=== PATIENT | male | born 1945 | race Caucasian/White ===

== ENCOUNTER 2018-09-26 08:34 | Observation (INO) | payer MEDICARE, OTHER ==
[2018-09-26] MEDS ORDERED: DUONEB 0.5-3 MG/3 ml Neb IH ONE ×2 (09:15→09:38)
[2018-09-26 09:24] LABS: VBG BASE EXCESS 1.7 (-2.0-2.0); VBG CARBOXYHEMOGLOBIN 2.3 % T HGB (0.0-6.9); VBG HCO3- 26.6 meq/L (22-28); VBG HEMOGLOBIN 10.8; VBG O2 SATURATION 56.8 (95-100); VBG POTASSIUM 3.9 (3.5-5.1); VBG pH 7.41 (7.32-7.42)
--- NOTE | 2018-09-26 09:24 | ERPHSYRPT ---
- History of Present Illness Time Seen by Provider: 09/26/18 08:50 Source: patient Exam Limitations: clinical condition Patient Subjective Stated Complaint: pt here for increase weakness for a few days now, with off and on vomiting. he denies any pain, spouse states he is slightly confused off and on Triage Nursing Assessment: pt alert, arrived per ambulance, resp easy, skin w/d/ p. has port to right side of chest and drain to left side of chest. abd soft, Physician History: PATIENT WITH A HISTORY OF PULMONARY CARCINOMA X 2 YEARS, POST CHEMOTHERAPY, AND CHEMOTHERAPY, HAD EPISODES OF EMESIS X 2 DAYS. COMPLAINS OF A PRODUCTIVE COUGH CLEAR SPUTUM. DENIES FEVER, CHILLS, DIFFICULTY BREATHING OR CHEST PAIN. Timing/Duration: day(s) Severity: moderate Associated Symptoms: cough, weakness Allergies/Adverse Reactions: No Known Drug Allergies Allergy (Verified 09/26/18 08:42) Home Medications: Allopurinol 100 mg [Zyloprim 100 mg] 100 mg PO DAILY 04/16/15 [History] Metformin HCl 500 mg [Glucophage 500 MG] 500 mg PO DAILY 04/16/15 [History ] Metoprolol Tartrate 50 mg [Lopressor 50 MG] 50 mg PO BID 04/16/15 [History ] Nitroglycerin 0.4 mg/Hr [Nitro-Dur 0.4 MG/HR] 1 patch TOP DAILY 04/16/15 [ History] Perdido-3 Fatty Acids/Fish Oil [Fish Oil 1,000 mg Softgel] 1 tab PO BID 04/16/15 [ History] Ramipril 5 mg [Altace 5 MG] 10 mg PO DAILY 04/16/15 [History] Metoprolol Tartrate 50 mg [Lopressor 50 MG] 09/26/18 [History] Hx Tetanus, Diphtheria Vaccination/Date Given: No Hx Influenza Vaccination/Date Given: Yes (Dec 2014) Hx Pneumococcal Vaccination/Date Given: Yes (approximately 2 years) Immunizations Up to Date: Yes - Review of Systems Constitutional: Weakness, No Fever, No Chills Eyes: No Symptoms Ears, Nose, & Throat: No Symptoms Respiratory: Cough, No Dyspnea Cardiac: No Symptoms, No Chest Pain, No Edema, No Syncope Abdominal/Gastrointestinal: No Symptoms, No Abdominal Pain, No Nausea, No Vomiting, No Diarrhea Genitourinary Symptoms: No Symptoms, No Dysuria Musculoskeletal: No Symptoms, No Back Pain, No Neck Pain Skin: Skin Lesions, No Rash Neurological: No Dizziness, No Focal Weakness, No Sensory Changes Psychological: No Symptoms Endocrine: No Symptoms All Other Systems: Reviewed and Negative - Past Medical History Pertinent Past Medical History: Yes Neurological History: No Pertinent History ENT History: No Pertinent History Cardiac History: Coronary Artery Disease, Myocardial Infarction (CT) Respiratory History: Lung Cancer Endocrine Medical History: Diabetes Type II Musculoskeletal History: No Pertinent History GI Medical History: Polyps History: No Pertinent History Psycho-Social History: No Pertinent History Male Reproductive Disorders: No Pertinent History Other Medical History: pt is "prediabetic" for the past 3 months taking metformin. stopped chemo and radiation in 2018 and takes oral meds - Past Surgical History Past Surgical History: Yes Neuro Surgical History: No Pertinent History Cardiac: Cardiac Catheterization, Cardiac Stent Respiratory: No Pertinent History Gastrointestinal: Other Genitourinary: No Pertinent History Musculoskeletal: No Pertinent History Male Surgical History: Vasectomy Other Surgical History: colonoscopies - Social History Smoking Status: Former smoker How long have you smoked: 30 years Exposure to second hand smoke: No Drug Use: none Patient Lives Alone: No - Nursing Vital Signs Nursing Vital Signs: Initial Vital Signs Temperature 98.8 F 09/26/18 08:35 Pulse Rate 93 H 09/26/18 08:35 Respiratory Rate 18 09/26/18 08:35 Blood Pressure 123/79 09/26/18 08:35 O2 Sat by Pulse Oximetry 95 09/26/18 08:35 Pain Scale Pain Intensity 0 - Physical Exam General Appearance: no apparent distress, alert Eye Exam: PERRL/EOMI, eyes nml inspection Ears, Nose, Throat Exam: normal ENT inspection, TMs normal, pharynx normal, moist mucous membranes Neck Exam: normal inspection, non-tender, supple, full range of motion Respiratory Exam: normal breath sounds, lungs clear, No respiratory distress Cardiovascular Exam: regular rate/rhythm, normal heart sounds, normal peripheral pulses Gastrointestinal/Abdomen Exam: soft, normal bowel sounds, No tenderness, No mass Back Exam: normal inspection, normal range of motion, No CVA tenderness, No vertebral tenderness Extremity Exam: normal inspection, normal range of motion, pelvis stable Neurologic Exam: alert, oriented x 3, cooperative, normal mood/affect, nml cerebellar function, nml station & gait, sensation nml, No motor deficits Skin Exam: normal color, warm, dry, No rash Lymphatic Exam: No adenopathy SpO2 Interpretation: normal SpO2: 95 - Course EKG Interpreted by Me: RATE, Sinus Rhythm, Sinus Tach, NORMAL AXIS (RATE 97) - Radiology Exams Chest X-ray Interpretation: Interpreted by me (LEFT PERIHILAR MASS, INFRAHILAR INFILTRATE) Ordered Tests: Active Orders 24 hr Category Date Time Status Drilling Foreman STAT Care 09/26/18 09:16 Active EKG-ER Only STAT Care 09/26/18 09:15 Active Oxygen-ED Only Nasal Cannula 2 lpm Care 09/26/18 09:15 Active CHEST 1 VIEW (PORTABLE) Stat Exams 09/26/18 09:16 Taken BLOOD CULTURE Stat Lab 09/26/18 09:30 Received CBC W DIFF Stat Lab 09/26/18 09:15 Completed CMP Stat Lab 09/26/18 09:20 Completed Lactic Acid Stat Lab 09/26/18 09:15 Completed NT PRO BNP Stat Lab 09/26/18 09:17 Completed PROTIME WITH INR Stat Lab 09/26/18 09:20 Completed TROPONIN Q3H Lab 09/26/18 09:20 Completed TROPONIN Q3H Lab 09/26/18 12:30 Ordered TROPONIN Q3H Lab 09/26/18 15:30 Ordered TROPONIN Q3H Lab 09/26/18 18:30 Ordered TROPONIN Q3H Lab 09/26/18 21:30 Ordered UA W/RFX UR CULTURE Stat Lab 09/26/18 09:16 Uncollected VENOUS BLOOD GAS Stat Lab 09/26/18 09:17 Completed Peak Expiratory Flow Rate ONCE RT 09/26/18 09:15 Completed Respiratory Therapy Assessment DAILY RT 09/26/18 09:39 Completed Medication Summary Generic Name Dose Route Start Last Admin Trade Name Freq PRN Reason Stop Dose Admin Sodium Chloride 1,000 mls @ 100 mls/hr 09/26/18 09:15 09/26/18 09:42 Sodium Chloride 0.9% 1000 Ml IV 10/26/18 09:14 100 mls/hr .Q10H RONALD Administration Ceftriaxone Sodium/Dextrose 1 g in 50 mls @ 100 mls/hr 09/26/18 09:59 Rocephin 1 Gm-D5w 50 Ml Bag IV 09/26/18 10:28 STAT STA Discontinued Medications Generic Name Dose Route Start Last Admin Trade Name Lorin PRN Reason Stop Dose Admin Albuterol/Ipratropium 3 ml 09/26/18 09:15 09/26/18 09:42 Duoneb 0.5-3 Mg/3 Ml Neb IH 09/26/18 09:16 3 ml STAT ONE Administration Albuterol/Ipratropium Confirm 09/26/18 09:38 Duoneb 0.5-3 Mg/3 Ml Neb Administered 09/26/18 09:39 Dose 3 ml IH .STK-MED ONE Ceftriaxone Sodium/Dextrose Confirm 09/26/18 10:18 Rocephin 1 Gm-D5w 50 Ml Bag Administered 09/26/18 10:19 Dose 1 g in 50 mls @ ud IV .STK-MED ONE Lab/Rad Data: Laboratory Result Diagrams 09/26/18 09:15 09/26/18 09:20 Laboratory Results 09/26/18 09/26/18 09/26/18 Range/Units 09:32 09:20 09:20 WBC (4.0-10.5) K/mm3 RBC (4.1-5.6) M/mm3 Hgb (12.5-18.0) gm/dl Hct (42-50) % MCV (78-100) fl MCH (26-32) pg MCHC (32-36) g/dl RDW (11.5-14.0) % Plt Count (150-450) K/mm3 MPV (6-9.5) fl Gran % (36.0-66.0) % Eos # (Auto) (0-0.5) Absolute Lymphs (auto) (1.0-4.6) Absolute Monos (auto) (0.0-1.3) Lymphocytes % (24.0-44.0) % Monocytes % (0.0-12.0) % Eosinophils % (0.00-5.0) % Basophils % (0.0-0.4) % Absolute Granulocytes (1.4-6.9) Basophils # (0-0.4) PT 13.7 H (8.83-12.87) SECONDS INR 1.21 (0.8-3.0) pO2/FiO2 Ratio % VBG pH (7.32-7.42) VBG pCO2 at Pat Temp (42-55) mm/Hg VBG pO2 at Pat Temp (25-40) mm/Hg VBG HCO3 (22-28) meq/L VBG O2 Sat (Farzad) (95-100) VBG Base Excess (-2.0-2.0) VBG Hemoglobin VBG Carboxyhemoglobin (0.0-6.9) % T HGB POC Potassium (3.5-5.1) Sodium (137-145) mmol/L Potassium (3.5-5.1) mmol/L Chloride (98-107) mmol/L Carbon Dioxide (22-30) mmol/L Anion Gap (5-15) MEQ/L BUN (9-20) mg/dL Creatinine (0.66-1.25) mg/dL Estimated GFR ML/MIN Glucose (74-106) mg/dL Lactic Acid (0.4-2.0) Calcium (8.4-10.2) mg/dL Total Bilirubin (0.2-1.3) mg/dL AST (17-59) U/L ALT (0-50) U/L Alkaline Phosphatase (38-126) U/L Troponin I < 0.012 (0.000-0.034) ng/mL NT-Pro-B Natriuret Pep (0-900) pg/mL Serum Total Protein (6.3-8.2) g/dL Albumin (3.5-5.0) g/dL Influenza Type A Ag NEGATIVE (NEGATIVE) Influenza Type B Ag NEGATIVE (NEGATIVE) RSV (PCR) NEGATIVE (Negative) 09/26/18 09/26/18 09/26/18 Range/Units 09:20 09:17 09:17 WBC (4.0-10.5) K/mm3 RBC (4.1-5.6) M/mm3 Hgb (12.5-18.0) gm/dl Hct (42-50) % MCV (78-100) fl MCH (26-32) pg MCHC (32-36) g/dl RDW (11.5-14.0) % Plt Count (150-450) K/mm3 MPV (6-9.5) fl Gran % (36.0-66.0) % Eos # (Auto) (0-0.5) Absolute Lymphs (auto) (1.0-4.6) Absolute Monos (auto) (0.0-1.3) Lymphocytes % (24.0-44.0) % Monocytes % (0.0-12.0) % Eosinophils % (0.00-5.0) % Basophils % (0.0-0.4) % Absolute Granulocytes (1.4-6.9) Basophils # (0-0.4) PT (8.83-12.87) SECONDS INR (0.8-3.0) pO2/FiO2 Ratio 21.0 % VBG pH 7.41 (7.32-7.42) VBG pCO2 at Pat Temp 42 (42-55) mm/Hg VBG pO2 at Pat Temp 30 (25-40) mm/Hg VBG HCO3 26.6 (22-28) meq/L VBG O2 Sat (Farzad) 56.8 L (95-100) VBG Base Excess 1.7 (-2.0-2.0) VBG Hemoglobin 10.8 VBG Carboxyhemoglobin 2.3 (0.0-6.9) % T HGB POC Potassium 3.9 (3.5-5.1) Sodium 134 L (137-145) mmol/L Potassium 4.0 (3.5-5.1) mmol/L Chloride 95 L (98-107) mmol/L Carbon Dioxide 24 (22-30) mmol/L Anion Gap 19.4 H (5-15) MEQ/L BUN 8 L (9-20) mg/dL Creatinine 0.50 L (0.66-1.25) mg/dL Estimated GFR > 60.0 ML/MIN Glucose 84 (74-106) mg/dL Lactic Acid (0.4-2.0) Calcium 8.9 (8.4-10.2) mg/dL Total Bilirubin 0.90 (0.2-1.3) mg/dL AST 27 (17-59) U/L ALT 7 (0-50) U/L Alkaline Phosphatase 60 (38-126) U/L Troponin I (0.000-0.034) ng/mL NT-Pro-B Natriuret Pep 961 H (0-900) pg/mL Serum Total Protein 7.2 (6.3-8.2) g/dL Albumin 3.7 (3.5-5.0) g/dL Influenza Type A Ag (NEGATIVE) Influenza Type B Ag (NEGATIVE) RSV (PCR) (Negative) 09/26/18 09/26/18 Range/Units 09:15 09:15 WBC 10.0 (4.0-10.5) K/mm3 RBC 3.87 L (4.1-5.6) M/mm3 Hgb 10.4 L (12.5-18.0) gm/dl Hct 31.6 L (42-50) % MCV 81.7 (78-100) fl MCH 26.8 (26-32) pg MCHC 32.9 (32-36) g/dl RDW 15.7 H (11.5-14.0) % Plt Count 166 (150-450) K/mm3 MPV 7.6 (6-9.5) fl Gran % 79.1 H (36.0-66.0) % Eos # (Auto) 0.13 (0-0.5) Absolute Lymphs (auto) 1.06 (1.0-4.6) Absolute Monos (auto) 0.89 (0.0-1.3) Lymphocytes % 10.6 L (24.0-44.0) % Monocytes % 8.9 (0.0-12.0) % Eosinophils % 1.3 (0.00-5.0) % Basophils % 0.1 (0.0-0.4) % Absolute Granulocytes 7.93 H (1.4-6.9) Basophils # 0.01 (0-0.4) PT (8.83-12.87) SECONDS INR (0.8-3.0) pO2/FiO2 Ratio % VBG pH (7.32-7.42) VBG pCO2 at Pat Temp (42-55) mm/Hg VBG pO2 at Pat Temp (25-40) mm/Hg VBG HCO3 (22-28) meq/L VBG O2 Sat (Farzad) (95-100) VBG Base Excess (-2.0-2.0) VBG Hemoglobin VBG Carboxyhemoglobin (0.0-6.9) % T HGB POC Potassium (3.5-5.1) Sodium (137-145) mmol/L Potassium (3.5-5.1) mmol/L Chloride (98-107) mmol/L Carbon Dioxide (22-30) mmol/L Anion Gap (5-15) MEQ/L BUN (9-20) mg/dL Creatinine (0.66-1.25) mg/dL Estimated GFR ML/MIN Glucose (74-106) mg/dL Lactic Acid 0.8 (0.4-2.0) Calcium (8.4-10.2) mg/dL Total Bilirubin (0.2-1.3) mg/dL AST (17-59) U/L ALT (0-50) U/L Alkaline Phosphatase (38-126) U/L Troponin I (0.000-0.034) ng/mL NT-Pro-B Natriuret Pep (0-900) pg/mL Serum Total Protein (6.3-8.2) g/dL Albumin (3.5-5.0) g/dL Influenza Type A Ag (NEGATIVE) Influenza Type B Ag (NEGATIVE) RSV (PCR) (Negative) - Progress Progress Note: 09/26/18 10:26 AFTER 2 SETS OF BLOOD CULTURES, IV ROCEPHIN 1GM, DUO NEB AEROSOL [place] Discussed with : Leon (DISCUSSED WITH DR MANSFIELD AT 1030 FOR OBSERVATION) - Departure Departure Disposition: Observation Clinical Impression: GENERALIZED WEAKNESS, PULMONARY CARCINOMA, DEHYDRATION Condition: Stable Critical Care Time: No Referrals: NORBERTO SHERMAN MD [Primary Care Provider] -
[2018-09-26] MEDS ORDERED: Sodium Chloride 0.9% 1000 ML 1,000 ML ONE (09:32)
[2018-09-26 09:33] LABS: BASOPHIL % 0.1 % (0.0-0.4); Basophil (Absolute #) 0.01 (0-0.4); Eosinophil % 1.3 % (0.00-5.0); Eosinophil (Absolute #) 0.13 (0-0.5); Granulocyte Absolute (ANC) 7.93 (1.4-6.9); Granulocytes % 79.1 % (36.0-66.0); Hematocrit 31.6 % (42-50); Hemoglobin 10.4 gm/dl (12.5-18.0); Lymphocyte (Absolute #) 1.06 (1.0-4.6); Lymphocytes % 10.6 % (24.0-44.0); Mean Cell Volume 81.7 fl (78-100); Mean Corpuscular Hemoglobin 26.8 pg (26-32); Mean Corpuscular Hgb Concent. 32.9 g/dl (32-36); Mean Platelet Volume 7.6 fl (6-9.5); Monocyte (Absolute #) 0.89 (0.0-1.3); Monocytes % 8.9 % (0.0-12.0); Platelet Count 166 K/mm3 (150-450); Red Blood Count 3.87 M/mm3 (4.1-5.6); Red Cell Distribution Width 15.7 % (11.5-14.0)
[2018-09-26 09:39] LABS: INR 1.21 (0.8-3.0); PROTIME 13.7 SECONDS (8.83-12.87)
[2018-09-26] MEDS: Sodium Chloride 0.9% 1000 ML 1,000 ML IV SCH ×2 (09:42→20:25)
[2018-09-26 09:44] LABS: ALBUMIN 3.7 g/dL (3.5-5.0); ALKALINE PHOSPHATASE 60 U/L (38-126); ANION GAP 19.4 MEQ/L (5-15); BLOOD UREA NITROGEN 8 mg/dL (9-20); CHLORIDE 95 mmol/L (98-107); Calcium 8.9 mg/dL (8.4-10.2); Carbon Dioxide 24 mmol/L (22-30); Glucose 84 mg/dL (74-106); SGOT/AST 27 U/L (17-59); SGPT/ALT 7 U/L (0-50); SODIUM 134 mmol/L (137-145); Total Protein 7.2 g/dL (6.3-8.2)
[2018-09-26] MEDS ORDERED: ROCEPHIN 1 Gm-D5w 50 ml Bag** 1 G/50 ML IVPB IV STA (09:59)
[2018-09-26 10:09] LABS: INFLUENZA A NEGATIVE (NEGATIVE); INFLUENZA B NEGATIVE (NEGATIVE); RESPIRATORY SYNCTIAL VIRUS NEGATIVE (Negative)
[2018-09-26] MEDS ORDERED: ROCEPHIN 1 Gm-D5w 50 ml Bag** 1 G/50 ML IVPB IV ONE (10:18)
[2018-09-26] MEDS ORDERED: Zofran 4 MG/2 ML VIAL IV PRN (10:37)
[2018-09-26] MEDS ORDERED: DUONEB 0.5-3 MG/3 ml Neb IH PRN (10:37)
[2018-09-26] MEDS ORDERED: TYLENOL 325 MG PO PRN (10:37)
[2018-09-26] MEDS ORDERED: Sodium Chloride 0.9% 1000 ML 1,000 ML IV SCH (10:45)
[2018-09-26] MEDS ORDERED: Zithromax 500 MG/ 250 ML NaCl Premix 500 MG/250 ML IVPB IV SCH (12:00)
[2018-09-26 13:44] LABS: Appearance CLEAR (CLEAR); Bilirubin NEGATIVE (NEGATIVE); Blood NEGATIVE Ery/ul (0-5); Glucose NEGATIVE (NEGATIVE); Ketones MODERATE (NEGATIVE); Leukocyte Esterase NEGATIVE (NEGATIVE); Mucus SLIGHT /HPF (NEGATIVE); Nitrite NEGATIVE (NEGATIVE); Protein,Urine Dip NEGATIVE (Negative); Urobilinogen NEGATIVE mg/dL (0-1)
[2018-09-26] MEDS ORDERED: ZOFRAN ODT 4 MG PO PRN (14:00)
[2018-09-26] MEDS: Flomax 0.4 MG PO SCH (15:24)
--- NOTE | 2018-09-26 18:22 | PCM.HP ---
History of Present Illness - Chief Complaint Chief Complaint: Generalized Weakness, Pneumonia, Dehydration History of Present Illness: is a 73 year old male pt with no PCP, hx CAD, HTN, DM, and gout with current lung cancer being treated with chemotherapy who was admitted through the ER for Pneumonia, CP, weakness and dehydration. History is from his ; pt has been disoriented and weak x 2d with decreased urination. Can no longer get out of bed. Has a walker at home and prior to this was walking by himself. Pt has had some vomiting after eating, no diarrhea; last ate yesterday at noon. CXR showed L hilar mass, possibly due to infection (final read pending). He sees Dr. Lim and Dr. Araiza (?) for the cancer. Has been on opdivo for 2.5 years but took a break from that at the end of July - is supposed to resume on Oct 28. says the scans show no sign of the cancer but he has been generally weak and failing recently. notes he's been in the ER at [facility] [place] 3x in the past 3 wks - once for bronchitis, once for a fx vertebra, once for dehydration. - Review of Systems Constitutional: Fatigue, Weakness, Weight Loss Respiratory: Short Of Breath, Other (has pleurodrain x 18 mo in L chest) Abdominal/Gastrointestinal: Appetite Changes Neurological: Other (disorientation) All Other Systems: Reviewed and Negative (per ) Medications & Allergies Home Medications: Home Medication List Allopurinol 100 mg [Zyloprim 100 mg] 100 mg PO HS 04/16/15 [History Confirmed 09/26/18] Metformin HCl 500 mg [Glucophage 500 MG] 500 mg PO BID 04/16/15 [History Confirmed 09/26/18] Nitroglycerin 0.4 mg/Hr [Nitro-Dur 0.4 MG/HR] 1 patch TOP HS 04/16/15 [ History Confirmed 09/26/18] Ramipril 5 mg [Altace 5 MG] 10 mg PO HS 04/16/15 [History Confirmed ] Metoprolol Tartrate 50 mg [Lopressor 50 MG] 50 mg PO BID 09/26/18 [ History Confirmed 09/26/18] Ondansetron ODT 4 MG [Zofran Odt 4 mg] 1 tab SL Q6H 09/26/18 [History Confirmed 09/26/18] Sertraline HCl 50 mg [Zoloft 50 mg Tablet] 50 mg PO HS 09/26/18 [History Confirmed 09/26/18] Tamsulosin HCl 0.4 mg PO DAILY 09/26/18 [History Confirmed 09/26/18] Allergies/Adverse Reactions: Allergies Allergy/AdvReac Type Severity Reaction Status Date / Time No Known Drug Allergies Allergy Verified 09/26/18 08:42 - Past Medical History Past Medical History: Yes Neurological History: No Pertinent History ENT History: No Pertinent History Cardiac History: Coronary Artery Disease, Myocardial Infarction ([place]) Respiratory History: Lung Cancer Endocrine Medical History: Diabetes Type II Musculoskelatal History: No Pertinent History GI Medical History: Polyps History: No Pertinent History Pyscho-Social History: No Pertinent History Male Reproductive Disorders: No Pertinent History Comment: TAKES METFORMIN - Past Surgical History Past Surgical History: Yes Neuro Surgical History: No Pertinent History Cardiac History: Cardiac Catheterization, Cardiac Stent Respiratory Surgery: No Pertinent History GI Surgical History: Other Genitourinary Surgical Hx: No Pertinent History Musculskeletal Surgical Hx: No Pertinent History Male Surgical History: Vasectomy Other Surgical History: pt currently has lung cancer and is receiving immunotherapy for that. PARATHYROID SURGERY "YEARS AGO" - Social History Smoking Status: Former smoker How long have you smoked: 30 years Exposure to second hand smoke: No Alcohol: None Drug Use: none - Physical Exam Vital Signs: Vital Signs - 24 hr Temp Pulse Resp BP Pulse Ox 09/26/18 16:00 98.9 F 94 H 18 119/89 94 L 09/26/18 13:18 94 H 18 95 09/26/18 12:24 98.7 F 98 H 18 136/66 94 L 09/26/18 11:11 98.7 F 98 H 18 136/66 94 L 09/26/18 10:34 95 09/26/18 10:13 72 14 126/86 98 09/26/18 09:48 91 H 16 95 09/26/18 09:30 88 16 116/76 98 09/26/18 08:35 98.8 F 93 H 18 123/79 95 General Appearance: no apparent distress, alert Neurologic Exam: cooperative, other (answers some questions with comments that don't make sense; however simply doesn't answer most questions, his does) Eye Exam: eyes nml inspection Ears, Nose, Throat Exam: moist mucous membranes Neck Exam: normal inspection, non-tender, No lymphadenopathy Respiratory Exam: diminished breath sounds, prolonged expirations, rhonchi ( throughout), No crackles/rales, No wheezing Cardiovascular Exam: regular rate/rhythm, normal heart sounds, No murmur Extremity Exam: normal inspection, No pedal edema, No swelling Skin Exam: normal color, warm, dry, No rash Results - Labs Lab/Micro Results: Accuchecks Date 09/26/18 Time 16:30 Accucheck Value: 104 Lab Results-Last 24 Hours 09/26/18 09/26/18 09/26/18 Range/Units 09:15 09:15 09:17 WBC 10.0 (4.0-10.5) K/mm3 RBC 3.87 L (4.1-5.6) M/mm3 Hgb 10.4 L (12.5-18.0) gm/dl Hct 31.6 L (42-50) % MCV 81.7 (78-100) fl MCH 26.8 (26-32) pg MCHC 32.9 (32-36) g/dl RDW 15.7 H (11.5-14.0) % Plt Count 166 (150-450) K/mm3 MPV 7.6 (6-9.5) fl Gran % 79.1 H (36.0-66.0) % Eos # (Auto) 0.13 (0-0.5) Absolute Lymphs (auto) 1.06 (1.0-4.6) Absolute Monos (auto) 0.89 (0.0-1.3) Lymphocytes % 10.6 L (24.0-44.0) % Monocytes % 8.9 (0.0-12.0) % Eosinophils % 1.3 (0.00-5.0) % Basophils % 0.1 (0.0-0.4) % Absolute Granulocytes 7.93 H (1.4-6.9) Basophils # 0.01 (0-0.4) PT (8.83-12.87) SECONDS INR (0.8-3.0) pO2/FiO2 Ratio 21.0 % VBG pH 7.41 (7.32-7.42) VBG pCO2 at Pat Temp 42 (42-55) mm/Hg VBG pO2 at Pat Temp 30 (25-40) mm/Hg VBG HCO3 26.6 (22-28) meq/L VBG O2 Sat (Farzad) 56.8 L (95-100) VBG Base Excess 1.7 (-2.0-2.0) VBG Hemoglobin 10.8 VBG Carboxyhemoglobin 2.3 (0.0-6.9) % T HGB POC Potassium 3.9 (3.5-5.1) Sodium (137-145) mmol/L Potassium (3.5-5.1) mmol/L Chloride (98-107) mmol/L Carbon Dioxide (22-30) mmol/L Anion Gap (5-15) MEQ/L BUN (9-20) mg/dL Creatinine (0.66-1.25) mg/dL Estimated GFR ML/MIN Glucose (74-106) mg/dL Hemoglobin A1c (4.5-6.0) % Lactic Acid 0.8 (0.4-2.0) Calcium (8.4-10.2) mg/dL Total Bilirubin (0.2-1.3) mg/dL AST (17-59) U/L ALT (0-50) U/L Alkaline Phosphatase (38-126) U/L Troponin I (0.000-0.034) ng/mL NT-Pro-B Natriuret Pep (0-900) pg/mL Serum Total Protein (6.3-8.2) g/dL Albumin (3.5-5.0) g/dL Urine Color (YELLOW) Urine Appearance (CLEAR) Urine pH (5-6) Ur Specific [place] (1.005-1.025) Urine Protein (Negative) Urine Ketones (NEGATIVE) Urine Blood (0-5) Marcelo/ul Urine Nitrite (NEGATIVE) Urine Bilirubin (NEGATIVE) Urine Urobilinogen (0-1) mg/dL Ur Leukocyte Esterase (NEGATIVE) Urine WBC (Auto) (0-5) /HPF Urine RBC (Auto) (0-2) /HPF U Epithel Cells (Auto) (FEW) /HPF Urine Bacteria (Auto) (NEGATIVE) /HPF Urine Mucus (Auto) (NEGATIVE) /HPF Urine Culture Reflexed (NO) Urine Glucose (NEGATIVE) mg/dL Influenza Type A Ag (NEGATIVE) Influenza Type B Ag (NEGATIVE) RSV (PCR) (Negative) 09/26/18 09/26/18 09/26/18 Range/Units 09:17 09:20 09:20 WBC (4.0-10.5) K/mm3 RBC (4.1-5.6) M/mm3 Hgb (12.5-18.0) gm/dl Hct (42-50) % MCV (78-100) fl MCH (26-32) pg MCHC (32-36) g/dl RDW (11.5-14.0) % Plt Count (150-450) K/mm3 MPV (6-9.5) fl Gran % (36.0-66.0) % Eos # (Auto) (0-0.5) Absolute Lymphs (auto) (1.0-4.6) Absolute Monos (auto) (0.0-1.3) Lymphocytes % (24.0-44.0) % Monocytes % (0.0-12.0) % Eosinophils % (0.00-5.0) % Basophils % (0.0-0.4) % Absolute Granulocytes (1.4-6.9) Basophils # (0-0.4) PT 13.7 H (8.83-12.87) SECONDS INR 1.21 (0.8-3.0) pO2/FiO2 Ratio % VBG pH (7.32-7.42) VBG pCO2 at Pat Temp (42-55) mm/Hg VBG pO2 at Pat Temp (25-40) mm/Hg VBG HCO3 (22-28) meq/L VBG O2 Sat (Farzad) (95-100) VBG Base Excess (-2.0-2.0) VBG Hemoglobin VBG Carboxyhemoglobin (0.0-6.9) % T HGB POC Potassium (3.5-5.1) Sodium 134 L (137-145) mmol/L Potassium 4.0 (3.5-5.1) mmol/L Chloride 95 L (98-107) mmol/L Carbon Dioxide 24 (22-30) mmol/L Anion Gap 19.4 H (5-15) MEQ/L BUN 8 L (9-20) mg/dL Creatinine 0.50 L (0.66-1.25) mg/dL Estimated GFR > 60.0 ML/MIN Glucose 84 (74-106) mg/dL Hemoglobin A1c (4.5-6.0) % Lactic Acid (0.4-2.0) Calcium 8.9 (8.4-10.2) mg/dL Total Bilirubin 0.90 (0.2-1.3) mg/dL AST 27 (17-59) U/L ALT 7 (0-50) U/L Alkaline Phosphatase 60 (38-126) U/L Troponin I (0.000-0.034) ng/mL NT-Pro-B Natriuret Pep 961 H (0-900) pg/mL Serum Total Protein 7.2 (6.3-8.2) g/dL Albumin 3.7 (3.5-5.0) g/dL Urine Color (YELLOW) Urine Appearance (CLEAR) Urine pH (5-6) Ur Specific [place] (1.005-1.025) Urine Protein (Negative) Urine Ketones (NEGATIVE) Urine Blood (0-5) Marcelo/ul Urine Nitrite (NEGATIVE) Urine Bilirubin (NEGATIVE) Urine Urobilinogen (0-1) mg/dL Ur Leukocyte Esterase (NEGATIVE) Urine WBC (Auto) (0-5) /HPF Urine RBC (Auto) (0-2) /HPF U Epithel Cells (Auto) (FEW) /HPF Urine Bacteria (Auto) (NEGATIVE) /HPF Urine Mucus (Auto) (NEGATIVE) /HPF Urine Culture Reflexed (NO) Urine Glucose (NEGATIVE) mg/dL Influenza Type A Ag (NEGATIVE) Influenza Type B Ag (NEGATIVE) RSV (PCR) (Negative) 09/26/18 09/26/18 09/26/18 Range/Units 09:20 09:32 10:00 WBC (4.0-10.5) K/mm3 RBC (4.1-5.6) M/mm3 Hgb (12.5-18.0) gm/dl Hct (42-50) % MCV (78-100) fl MCH (26-32) pg MCHC (32-36) g/dl RDW (11.5-14.0) % Plt Count (150-450) K/mm3 MPV (6-9.5) fl Gran % (36.0-66.0) % Eos # (Auto) (0-0.5) Absolute Lymphs (auto) (1.0-4.6) Absolute Monos (auto) (0.0-1.3) Lymphocytes % (24.0-44.0) % Monocytes % (0.0-12.0) % Eosinophils % (0.00-5.0) % Basophils % (0.0-0.4) % Absolute Granulocytes (1.4-6.9) Basophils # (0-0.4) PT (8.83-12.87) SECONDS INR (0.8-3.0) pO2/FiO2 Ratio % VBG pH (7.32-7.42) VBG pCO2 at Pat Temp (42-55) mm/Hg VBG pO2 at Pat Temp (25-40) mm/Hg VBG HCO3 (22-28) meq/L VBG O2 Sat (Farzad) (95-100) VBG Base Excess (-2.0-2.0) VBG Hemoglobin VBG Carboxyhemoglobin (0.0-6.9) % T HGB POC Potassium (3.5-5.1) Sodium (137-145) mmol/L Potassium (3.5-5.1) mmol/L Chloride (98-107) mmol/L Carbon Dioxide (22-30) mmol/L Anion Gap (5-15) MEQ/L BUN (9-20) mg/dL Creatinine (0.66-1.25) mg/dL Estimated GFR ML/MIN Glucose (74-106) mg/dL Hemoglobin A1c 5.41 (4.5-6.0) % Lactic Acid (0.4-2.0) Calcium (8.4-10.2) mg/dL Total Bilirubin (0.2-1.3) mg/dL AST (17-59) U/L ALT (0-50) U/L Alkaline Phosphatase (38-126) U/L Troponin I < 0.012 (0.000-0.034) ng/mL NT-Pro-B Natriuret Pep (0-900) pg/mL Serum Total Protein (6.3-8.2) g/dL Albumin (3.5-5.0) g/dL Urine Color (YELLOW) Urine Appearance (CLEAR) Urine pH (5-6) Ur Specific [place] (1.005-1.025) Urine Protein (Negative) Urine Ketones (NEGATIVE) Urine Blood (0-5) Marcelo/ul Urine Nitrite (NEGATIVE) Urine Bilirubin (NEGATIVE) Urine Urobilinogen (0-1) mg/dL Ur Leukocyte Esterase (NEGATIVE) Urine WBC (Auto) (0-5) /HPF Urine RBC (Auto) (0-2) /HPF U Epithel Cells (Auto) (FEW) /HPF Urine Bacteria (Auto) (NEGATIVE) /HPF Urine Mucus (Auto) (NEGATIVE) /HPF Urine Culture Reflexed (NO) Urine Glucose (NEGATIVE) mg/dL Influenza Type A Ag NEGATIVE (NEGATIVE) Influenza Type B Ag NEGATIVE (NEGATIVE) RSV (PCR) NEGATIVE (Negative) 09/26/18 09/26/18 09/26/18 Range/Units 12:15 13:32 15:23 WBC (4.0-10.5) K/mm3 RBC (4.1-5.6) M/mm3 Hgb (12.5-18.0) gm/dl Hct (42-50) % MCV (78-100) fl MCH (26-32) pg MCHC (32-36) g/dl RDW (11.5-14.0) % Plt Count (150-450) K/mm3 MPV (6-9.5) fl Gran % (36.0-66.0) % Eos # (Auto) (0-0.5) Absolute Lymphs (auto) (1.0-4.6) Absolute Monos (auto) (0.0-1.3) Lymphocytes % (24.0-44.0) % Monocytes % (0.0-12.0) % Eosinophils % (0.00-5.0) % Basophils % (0.0-0.4) % Absolute Granulocytes (1.4-6.9) Basophils # (0-0.4) PT (8.83-12.87) SECONDS INR (0.8-3.0) pO2/FiO2 Ratio % VBG pH (7.32-7.42) VBG pCO2 at Pat Temp (42-55) mm/Hg VBG pO2 at Pat Temp (25-40) mm/Hg VBG HCO3 (22-28) meq/L VBG O2 Sat (Farzad) (95-100) VBG Base Excess (-2.0-2.0) VBG Hemoglobin VBG Carboxyhemoglobin (0.0-6.9) % T HGB POC Potassium (3.5-5.1) Sodium (137-145) mmol/L Potassium (3.5-5.1) mmol/L Chloride (98-107) mmol/L Carbon Dioxide (22-30) mmol/L Anion Gap (5-15) MEQ/L BUN (9-20) mg/dL Creatinine (0.66-1.25) mg/dL Estimated GFR ML/MIN Glucose (74-106) mg/dL Hemoglobin A1c (4.5-6.0) % Lactic Acid (0.4-2.0) Calcium (8.4-10.2) mg/dL Total Bilirubin (0.2-1.3) mg/dL AST (17-59) U/L ALT (0-50) U/L Alkaline Phosphatase (38-126) U/L Troponin I < 0.012 < 0.012 (0.000-0.034) ng/mL NT-Pro-B Natriuret Pep (0-900) pg/mL Serum Total Protein (6.3-8.2) g/dL Albumin (3.5-5.0) g/dL Urine Color YELLOW (YELLOW) Urine Appearance CLEAR (CLEAR) Urine pH 5.0 (5-6) Ur Specific [place] 1.020 (1.005-1.025) Urine Protein NEGATIVE (Negative) Urine Ketones MODERATE (NEGATIVE) Urine Blood NEGATIVE (0-5) Marcelo/ul Urine Nitrite NEGATIVE (NEGATIVE) Urine Bilirubin NEGATIVE (NEGATIVE) Urine Urobilinogen NEGATIVE (0-1) mg/dL Ur Leukocyte Esterase NEGATIVE (NEGATIVE) Urine WBC (Auto) NONE (0-5) /HPF Urine RBC (Auto) NONE (0-2) /HPF U Epithel Cells (Auto) NONE (FEW) /HPF Urine Bacteria (Auto) NONE (NEGATIVE) /HPF Urine Mucus (Auto) SLIGHT (NEGATIVE) /HPF Urine Culture Reflexed NO (NO) Urine Glucose NEGATIVE (NEGATIVE) mg/dL Influenza Type A Ag (NEGATIVE) Influenza Type B Ag (NEGATIVE) RSV (PCR) (Negative) Accuchecks Date 09/26/18 Time 16:30 Accucheck Value: 104 - Radiology Impressions Radiology Exams & Impressions: Radiology Procedures Category Date Time Status CHEST 1 VIEW (PORTABLE) Stat Exams 09/26/18 09:16 Taken - Other Procedures and Tests Respiratory Therapy 09/26/18 10:37 Oxygen Nasal Cannula 2 lpm 09/26/18 13:16 Respiratory Therapy Assessment DAILY Assessment/Plan (1) Pneumonia Current Visit: Yes Status: Acute Qualifiers: Pneumonia type: due to unspecified organism Laterality: left Lung location: unspecified part of lung Qualified Code(s): J18.9 - Pneumonia, unspecified organism Assessment & Plan: on rocephin and zithromax day #1. After seeing the final read on CXR, may want to consider CT of the chest vs discussion with oncology (may not be a new finding). Code(s): J18.9 - PNEUMONIA, UNSPECIFIED ORGANISM (2) Dehydration Current Visit: Yes Status: Acute Assessment & Plan: On IV fluids. Code(s): E86.0 - DEHYDRATION (3) Chest pain Current Visit: Yes Status: Acute Qualifiers: Chest pain type: unspecified Qualified Code(s): R07.9 - Chest pain, unspecified Assessment & Plan: will rule out; troponins neg x 3. EKG without acute changes. Code(s): R07.9 - CHEST PAIN, UNSPECIFIED (4) Weakness Current Visit: Yes Status: Chronic Assessment & Plan: PT consult once pt is not dehydrated. Code(s): R53.1 - WEAKNESS (5) Lung cancer Current Visit: Yes Status: Chronic Qualifiers: Laterality: unspecified laterality Code(s): C34.90 - MALIGNANT NEOPLASM OF UNSP PART OF UNSP BRONCHUS OR LUNG (6) Hypertension Current Visit: Yes Status: Chronic Qualifiers: Hypertension type: essential hypertension Qualified Code(s): I10 - Essential (primary) hypertension Code(s): I10 - ESSENTIAL (PRIMARY) HYPERTENSION (7) Diabetes mellitus Current Visit: Yes Status: Chronic Qualifiers: Diabetes mellitus type: type 2 Diabetes mellitus care home insulin use: without oil heaterman use Diabetes mellitus complication status: without complication Qualified Code(s): E11.9 - Type 2 diabetes mellitus without complications Code(s): E11.9 - TYPE 2 DIABETES MELLITUS WITHOUT COMPLICATIONS
--- NOTE | 2018-09-26 20:14 | XRAY ---
Indication: Cough. History lung cancer. Comparison: None Portable chest demonstrates large left perihilar masslike opacity presumed known malignancy with right Port-A-Cath. Remaining heart and right lung unremarkable. Bony thorax intact. Comment: Comparison studies are recommended.
[2018-09-26] MEDS: Nitro-Dur 0.4 MG/HR TOP SCH (22:11)
[2018-09-26] MEDS: Lopressor 50 MG PO SCH (22:12)
[2018-09-26] MEDS: ZYLOPRIM 100 MG PO SCH (22:12)
[2018-09-26] MEDS: ZOLOFT 50 MG TABLET PO SCH (22:12)
[2018-09-26] MEDS: Altace 1.25 MG PO SCH (22:12)
[2018-09-27] MEDS: Sodium Chloride 0.9% 1000 ML 1,000 ML IV SCH ×2 (05:19→15:49)
[2018-09-27] MEDS: Lopressor 50 MG PO SCH ×3 (09:58→22:14)
[2018-09-27] MEDS: Flomax 0.4 MG PO SCH (09:58)
[2018-09-27] MEDS ORDERED: ROCEPHIN 1 Gm-D5w 50 ml Bag** 1 G/50 ML IVPB IV SCH (10:00)
--- NOTE | 2018-09-27 11:06 | PCM.DCORD ---
- Discharge Discharge Date: 09/27/18 Disposition: HOME HEALTH SERVICE Condition: Stable Prescriptions: Continue Nitroglycerin 0.4 mg/Hr [Nitro-Dur 0.4 MG/HR] 1 patch TOP HS Ramipril 5 mg [Altace 5 MG] 10 mg PO HS Metformin HCl 500 mg [Glucophage 500 MG] 500 mg PO BID Allopurinol 100 mg [Zyloprim 100 mg] 100 mg PO HS Metoprolol Tartrate 50 mg [Lopressor 50 MG] 50 mg PO BID Tamsulosin HCl 0.4 mg PO DAILY Sertraline HCl 50 mg [Zoloft 50 mg Tablet] 50 mg PO HS Ondansetron ODT 4 MG [Zofran Odt 4 mg] 1 tab SL Q6H Follow up with: INA JACKSON [CONSULTING PHYSICIAN] - 10/04/18 10:15 am (with 's department assistant Bebo MAYA )
--- NOTE | 2018-09-27 16:20 | XRAY ---
Indication: Altered mental status. Change in gait. Multiple contiguous axial images obtained through the head prior to and following 80 cc of Isovue-370 contrast as ordered. Comparison: None Age-appropriate global atrophy and moderate periventricular degenerative microvascular ischemia bilaterally. No acute intracranial hemorrhage. Right anterior parietal lobe demonstrates a 2 cm round nonenhancing extra-axial cystic mass, probable arachnoid cyst. Smaller 1.7 cm round nonenhancing hypodense mass in the peripheral right mid parietal lobe near the vertex less likely arachnoid cyst. No abnormal enhancing intra or extra-axial mass. Fourth ventricle is midline without hydrocephalus. Bony calvarium intact. Visualized paranasal sinuses are clear. Near complete opacification of the of both mastoid air cells presumably inflammatory. Impression: 1. Normal aging brain including atrophy and degenerative microvascular ischemia within normal limits for patient's age. 2. Right parietal extra-axial cystic mass as detailed favoring arachnoid cyst. Indeterminant smaller nonenhancing right parietal lobe mass near the vertex. MRI brain with contrast exam may yield further information. 3. No acute intracranial hemorrhage. 4. Near complete opacification of both mastoid air cells presumed inflammatory. CTDI 69.25
[2018-09-27] MEDS: Altace 1.25 MG PO SCH (22:14)
[2018-09-27] MEDS: Nitro-Dur 0.4 MG/HR TOP SCH (22:15)
[2018-09-27] MEDS: ZOLOFT 50 MG TABLET PO SCH (22:15)
[2018-09-27] MEDS: ZYLOPRIM 100 MG PO SCH (22:15)
[2018-09-28] MEDS: Sodium Chloride 0.9% 1000 ML 1,000 ML IV SCH (01:39)
[2018-09-28 08:36] VITALS: O2SAT 92
[2018-09-28] MEDS: Flomax 0.4 MG PO SCH (08:46)
[2018-09-28] MEDS: Lopressor 50 MG PO SCH (08:47)
[2018-09-28 08:51] VITALS: BP 129/70; PULSE 91
== END 2018-09-28 11:50 | disposition home health service (06) ==
LOC: ED 08:34 → MED SURG 11:01
PROVIDERS: ADMIT Family Medicine; ATTEND Family Medicine
DX: J18.9 Pneumonia, unspecified organism (principal); R53.1 Weakness; E86.0 Dehydration; C34.90 Malignant neoplasm of unspecified part of unspecified bronchus or lung; C79.31 Secondary malignant neoplasm of brain; E11.9 Type 2 diabetes mellitus without complications; I10 Essential (primary) hypertension; R07.9 Chest pain, unspecified; Z79.899 Other long term (current) drug therapy
CPT/HCPCS: 36000; 36415; 70470; 71045; 80053; 81001; 82805; 82962; 83036; 83605; 83880; 84484; 85025; 85610; 87040; 87631; 93005; 93041; 93268; 94150; 94640; 94760; 96360; 96365; 97110; 97162; 97165; 97530; 99285; G0378; 96374; 96375; J0456; J0696; J1642; J2405; A9270-GY

== ENCOUNTER 2018-11-26 16:50 | Emergency (ER) | payer MEDICARE, OTHER ==
[2018-11-26] MEDS ORDERED: DUONEB 0.5-3 MG/3 ml Neb IH ONE ×2 (17:06→17:31)
--- NOTE | 2018-11-26 17:10 | ERPHSYRPT ---
- History of Present Illness Source: patient, family Hx Tetanus, Diphtheria Vaccination/Date Given: No Hx Influenza Vaccination/Date Given: Yes (Dec 2014) Hx Pneumococcal Vaccination/Date Given: Yes (approximately 2 years) <BASIM WILLSON - Last Filed: 11/26/18 18:25> <MJ DODD - Last Filed: 11/26/18 20:57> - History of Present Illness Time Seen by Provider: 11/26/18 17:08 Physician History: mild to mod short of breath today and palpitations, +CARBAJAL, hx lung cancer and left pleural effusion, on home oxygen at night (BASIM WILLSON) Allergies/Adverse Reactions: No Known Drug Allergies Allergy (Verified 11/26/18 17:15) Home Medications: Allopurinol 100 mg [Zyloprim 100 mg] 100 mg PO HS 04/16/15 [History] Metformin HCl 500 mg [Glucophage 500 MG] 500 mg PO BID 04/16/15 [History] Nitroglycerin 0.4 mg/Hr [Nitro-Dur 0.4 MG/HR] 1 patch TOP HS 04/16/15 [ History] Metoprolol Tartrate 50 mg [Lopressor 50 MG] 25 mg PO BID 09/26/18 [History ] Tamsulosin HCl 0.4 mg PO DAILY 09/26/18 [History] Famotidine 20 mg [Pepcid 20 MG] 20 mg PO UD 11/26/18 [History] Fludrocortisone Acetate 0.1 mg PO DAILY 11/26/18 [History] Hydrocortisone 20 mg PO DAILY 11/26/18 [History] Sertraline HCl 50 mg [Zoloft 50 mg Tablet] 50 mg PO DAILY 11/26/18 [History] - Review of Systems Constitutional: No Fever Eyes: No Vision Changes Ears, Nose, & Throat: No Nose Congestion Respiratory: Cough, Dyspnea, Dyspnea on Exertion (CARBAJAL), Wheezing, No Stridor Cardiac: Palpitations, No Chest Pain Abdominal/Gastrointestinal: Nausea, No Abdominal Pain Musculoskeletal: No Fall Skin: No Rash Neurological: No Dizziness <BASIM WILLSON - Last Filed: 11/26/18 18:25> - Past Medical History Pertinent Past Medical History: Yes Neurological History: No Pertinent History ENT History: No Pertinent History Cardiac History: Coronary Artery Disease, Myocardial Infarction ([place]) Respiratory History: Lung Cancer Endocrine Medical History: Diabetes Type II Musculoskeletal History: No Pertinent History GI Medical History: Polyps History: No Pertinent History Psycho-Social History: No Pertinent History Male Reproductive Disorders: No Pertinent History Other Medical History: TAKES METFORMIN - Past Surgical History Past Surgical History: Yes Neuro Surgical History: No Pertinent History Cardiac: Cardiac Catheterization, Cardiac Stent Respiratory: No Pertinent History Gastrointestinal: Other Genitourinary: No Pertinent History Musculoskeletal: No Pertinent History Male Surgical History: Vasectomy Other Surgical History: pt currently has lung cancer and is receiving immunotherapy for that. PARATHYROID SURGERY "YEARS AGO" - Social History Smoking Status: Former smoker How long have you smoked: 30 years Exposure to second hand smoke: No Drug Use: none Patient Lives Alone: No <BASIM WILLSON - Last Filed: 11/26/18 18:25> - Physical Exam General Appearance: no apparent distress Eye Exam: PERRL/EOMI Ears, Nose, Throat Exam: hearing grossly normal Neck Exam: normal inspection Respiratory Exam: wheezing, No respiratory distress, No stridor Cardiovascular/Chest Exam: tachycardia Abdominal/Gastrointestinal Exam: soft, No tenderness Extremity Exam: pedal edema Neurologic Exam: alert, oriented x 3, cooperative Skin Exam: normal color, warm, dry <BASIM WILLSON - Last Filed: 11/26/18 18:25> - Physical Exam SpO2 Interpretation: hypoxic SpO2: 96 O2 Delivery: Nasal Cannula <MJ DODD - Last Filed: 11/26/18 20:57> - Nursing Vital Signs Nursing Vital Signs: Initial Vital Signs Temperature 97.8 F 11/26/18 16:51 Pulse Rate 134 H 11/26/18 16:51 Respiratory Rate 30 H 11/26/18 16:51 Blood Pressure 172/121 11/26/18 16:51 O2 Sat by Pulse Oximetry 92 L 11/26/18 16:51 Pain Scale Pain Intensity 0 Ordered Tests: Active Orders 24 hr Category Date Time Status Watermelon Harvesting Supervisor STAT Care 11/26/18 17:07 Active EKG-ER Only STAT Care 11/26/18 17:06 Active IV Insertion STAT Care 11/26/18 17:06 Active Oxygen-ED Only Nasal Cannula 2 lpm Care 11/26/18 17:06 Active CHEST 1 VIEW (PORTABLE) Stat Exams 11/26/18 17:07 Taken CHEST WITH CONTRAST [CT] Stat Exams 11/26/18 19:01 Taken BLOOD CULTURE Stat Lab 11/26/18 17:25 Received CBC W DIFF Stat Lab 11/26/18 17:20 Completed CMP Stat Lab 11/26/18 17:20 Completed D-DIMER QUANTITATION Stat Lab 11/26/18 17:20 Completed LIPASE Stat Lab 11/26/18 17:20 Completed Lactic Acid Stat Lab 11/26/18 17:06 Completed Lactic Acid Stat Lab 11/26/18 19:29 Ordered NT PRO BNP Stat Lab 11/26/18 17:20 Completed PROTIME WITH INR Stat Lab 11/26/18 17:20 Completed TROPONIN Q3H Lab 11/26/18 17:20 Completed TROPONIN Q3H Lab 11/26/18 20:35 Received TROPONIN Q3H Lab 11/26/18 23:15 Ordered TROPONIN Q3H Lab 11/27/18 02:15 Ordered TROPONIN Q3H Lab 11/27/18 05:15 Ordered Peak Expiratory Flow Rate ONCE RT 11/26/18 17:36 Completed Respiratory Therapy Assessment DAILY RT 11/26/18 17:36 Completed Medication Summary Discontinued Medications Generic Name Dose Route Start Last Admin Trade Name Freq PRN Reason Stop Dose Admin Albuterol/Ipratropium 3 ml 11/26/18 17:06 11/26/18 17:35 Duoneb 0.5-3 Mg/3 Ml Neb IH 11/26/18 17:07 3 ml STAT ONE Administration Albuterol/Ipratropium Confirm 11/26/18 17:31 Duoneb 0.5-3 Mg/3 Ml Neb Administered 11/26/18 17:32 Dose 3 ml IH .STK-MED ONE Furosemide 20 mg 11/26/18 18:23 11/26/18 18:36 Lasix 20 Mg/2 Ml IV 11/26/18 18:24 Not Given AFTER EA UNIT BLOOD ONE Furosemide 20 mg 11/26/18 18:34 11/26/18 18:38 Lasix 20 Mg/2 Ml IV 11/26/18 18:35 20 mg ONCE STA Administration Furosemide Confirm 11/26/18 18:37 Lasix 40 Mg/4 Ml Administered 11/26/18 18:38 Dose 40 mg .ROUTE .STK-MED ONE Sodium Chloride 1,000 mls @ 999 mls/hr 11/26/18 17:27 11/26/18 19:14 Sodium Chloride 0.9% 1000 Ml IV 11/26/18 18:27 0 mls/hr .Q1H1M STA Infusion Sodium Chloride Confirm 11/26/18 17:58 Sodium Chloride 0.9% 1000 Ml Administered 11/26/18 17:59 Dose 1,000 mls @ ud .ROUTE .STK-MED ONE Piperacillin Sod/Tazobactam Sod 3.375 gm in 100 mls @ 200 mls/hr 11/26/18 18: 02 11/26/18 18:49 Zosyn 3.375gm/100 Ml D5w IV 11/26/18 18:31 Infused STAT STA Infusion Piperacillin Sod/Tazobactam Sod Confirm 11/26/18 18:11 Zosyn 3.375gm/100 Ml D5w Administered 11/26/18 18:12 Dose 3.375 gm in 100 mls @ ud IV .STK-MED ONE Lab/Rad Data: Laboratory Result Diagrams 11/26/18 17:20 11/26/18 17:20 Laboratory Results 11/26/18 11/26/18 11/26/18 Range/Units 17:20 17:20 17:20 WBC (4.0-10.5) K/mm3 RBC (4.1-5.6) M/mm3 Hgb (12.5-18.0) gm/dl Hct (42-50) % MCV (78-100) fl MCH (26-32) pg MCHC (32-36) g/dl RDW (11.5-14.0) % Plt Count (150-450) K/mm3 MPV (6-9.5) fl Gran % (36.0-66.0) % Eos # (Auto) (0-0.5) Absolute Lymphs (auto) (1.0-4.6) Absolute Monos (auto) (0.0-1.3) Lymphocytes % (24.0-44.0) % Monocytes % (0.0-12.0) % Eosinophils % (0.00-5.0) % Basophils % (0.0-0.4) % Absolute Granulocytes (1.4-6.9) Basophils # (0-0.4) PT 12.5 (8.83-12.87) SECONDS INR 1.10 (0.8-3.0) D-Dimer 5314 H* (215-500) ng/mL Sodium (137-145) mmol/L Potassium (3.5-5.1) mmol/L Chloride (98-107) mmol/L Carbon Dioxide (22-30) mmol/L Anion Gap (5-15) MEQ/L BUN (9-20) mg/dL Creatinine (0.66-1.25) mg/dL Estimated GFR ML/MIN Glucose (74-106) mg/dL Lactic Acid (0.4-2.0) Calcium (8.4-10.2) mg/dL Total Bilirubin (0.2-1.3) mg/dL AST (17-59) U/L ALT (0-50) U/L Alkaline Phosphatase (38-126) U/L Troponin I 0.027 (0.000-0.034) ng/mL NT-Pro-B Natriuret Pep (0-900) pg/mL Serum Total Protein (6.3-8.2) g/dL Albumin (3.5-5.0) g/dL Lipase 39 (23-300) U/L 11/26/18 11/26/18 11/26/18 Range/Units 17:20 17:20 17:06 WBC 12.4 H (4.0-10.5) K/mm3 RBC 4.42 (4.1-5.6) M/mm3 Hgb 10.9 L (12.5-18.0) gm/dl Hct 35.9 L (42-50) % MCV 81.2 (78-100) fl MCH 24.6 L (26-32) pg MCHC 30.4 L (32-36) g/dl RDW 19.2 H (11.5-14.0) % Plt Count 264 (150-450) K/mm3 MPV 8.1 (6-9.5) fl Gran % 75.9 H (36.0-66.0) % Eos # (Auto) 0.08 (0-0.5) Absolute Lymphs (auto) 1.91 (1.0-4.6) Absolute Monos (auto) 0.98 (0.0-1.3) Lymphocytes % 15.4 L (24.0-44.0) % Monocytes % 7.9 (0.0-12.0) % Eosinophils % 0.6 (0.00-5.0) % Basophils % 0.2 (0.0-0.4) % Absolute Granulocytes 9.38 H (1.4-6.9) Basophils # 0.03 (0-0.4) PT (8.83-12.87) SECONDS INR (0.8-3.0) D-Dimer (215-500) ng/mL Sodium 139 (137-145) mmol/L Potassium 3.4 L (3.5-5.1) mmol/L Chloride 105 (98-107) mmol/L Carbon Dioxide 22 (22-30) mmol/L Anion Gap 15.0 (5-15) MEQ/L BUN 13 (9-20) mg/dL Creatinine 0.50 L (0.66-1.25) mg/dL Estimated GFR > 60.0 ML/MIN Glucose 161 H (74-106) mg/dL Lactic Acid 2.9 H (0.4-2.0) Calcium 8.9 (8.4-10.2) mg/dL Total Bilirubin 0.40 (0.2-1.3) mg/dL AST 21 (17-59) U/L ALT 9 (0-50) U/L Alkaline Phosphatase 71 (38-126) U/L Troponin I (0.000-0.034) ng/mL NT-Pro-B Natriuret Pep 55161 H (0-900) pg/mL Serum Total Protein 7.5 (6.3-8.2) g/dL Albumin 3.9 (3.5-5.0) g/dL Lipase (23-300) U/L <BASIM WILLSON - Last Filed: 11/26/18 18:25> - Progress Progress: unchanged Air Movement: fair Blood Culture(s) Obtained: No Antibiotics given: Yes Will see patient in: other (Transfer to regional ER) <MJ DODD - Last Filed: 11/26/18 20:57> - Progress Progress Note: 11/26/18 18:[address] Dodd at 19:00 (BASIM WILLSON) 11/26/18 20:52 Pt was re-examined, and secondary to CT with angio of the chest, and a mass that is big, in pt's chest, with loculated effusion on L and R effusion, and adrenal mass, I discussed the case with Dr Orenlas in [facility], that accepted the pt. Per family, the pt is a full code, and his Oncologist is in [facility] hospital. (MJ DODD) <BASIM WILLSON - Last Filed: 11/26/18 18:25> - Departure Departure Disposition: Transfer Critical Care Time: No <MJ DODD - Last Filed: 11/26/18 20:57> - Departure Clinical Impression: Lung mass Condition: Fair Referrals: GYPSY MANSFIELD [Primary Care Provider] - Additional Instructions: Pt will be transfered to [facility]. Dr Ornelas is accepting.
[2018-11-26] MEDS ORDERED: Sodium Chloride 0.9% 1000 ML 1,000 ML IV STA (17:27)
[2018-11-26 17:29] LABS: Lactic Acid 2.9 (0.4-2.0)
[2018-11-26 17:32] LABS: BASOPHIL % 0.2 % (0.0-0.4); Basophil (Absolute #) 0.03 (0-0.4); Eosinophil % 0.6 % (0.00-5.0); Eosinophil (Absolute #) 0.08 (0-0.5); Granulocyte Absolute (ANC) 9.38 (1.4-6.9); Granulocytes % 75.9 % (36.0-66.0); Hematocrit 35.9 % (42-50); Hemoglobin 10.9 gm/dl (12.5-18.0); Lymphocyte (Absolute #) 1.91 (1.0-4.6); Lymphocytes % 15.4 % (24.0-44.0); Mean Cell Volume 81.2 fl (78-100); Mean Corpuscular Hemoglobin 24.6 pg (26-32); Mean Corpuscular Hgb Concent. 30.4 g/dl (32-36); Mean Platelet Volume 8.1 fl (6-9.5); Monocyte (Absolute #) 0.98 (0.0-1.3); Monocytes % 7.9 % (0.0-12.0); Platelet Count 264 K/mm3 (150-450); Red Blood Count 4.42 M/mm3 (4.1-5.6); Red Cell Distribution Width 19.2 % (11.5-14.0); White Blood Count 12.4 K/mm3 (4.0-10.5)
[2018-11-26 17:48] LABS: INR 1.1 (0.8-3.0); PROTIME 12.5 SECONDS (8.83-12.87)
[2018-11-26] MEDS ORDERED: Sodium Chloride 0.9% 1000 ML 1,000 ML ONE (17:58)
[2018-11-26 18:01] LABS: ALBUMIN 3.9 g/dL (3.5-5.0); ALKALINE PHOSPHATASE 71 U/L (38-126); BLOOD UREA NITROGEN 13 mg/dL (9-20); CHLORIDE 105 mmol/L (98-107); Calcium 8.9 mg/dL (8.4-10.2); Carbon Dioxide 22 mmol/L (22-30); Glucose 161 mg/dL (74-106); NT PRO BNP 14200 pg/mL (0-900); Potassium 3.4 mmol/L (3.5-5.1); SGOT/AST 21 U/L (17-59); SGPT/ALT 9 U/L (0-50); SODIUM 139 mmol/L (137-145); Total Protein 7.5 g/dL (6.3-8.2)
[2018-11-26] MEDS ORDERED: Zosyn 3.375GM/100 Ml D5W 3.375 GM/100 ML IVPB IV STA (18:02)
[2018-11-26] MEDS ORDERED: Zosyn 3.375GM/100 Ml D5W 3.375 GM/100 ML IVPB IV ONE (18:11)
[2018-11-26] MEDS ORDERED: Lasix 20 MG/2 ML IV ONE (18:23)
[2018-11-26] MEDS ORDERED: Lasix 20 MG/2 ML IV STA (18:34)
[2018-11-26] MEDS ORDERED: Lasix 40 MG/4 ML ONE (18:37)
[2018-11-26 21:05] VITALS: BP 131/96; PULSE 108; O2SAT 97
[2018-11-26 21:06] LABS: Lactic Acid 2.3 (0.4-2.0)
--- NOTE | 2018-11-26 22:10 | XRAY ---
Indication: Short of breath and cough. History lung cancer. Comparison: September 26, 2018. Portable chest demonstrates grossly stable left perihilar masslike opacity. New moderate left effusion and small right effusion with left sided percutaneous drainage catheter in situ. Heart is not enlarged with stable right Port-A-Cath. Bony thorax intact.
--- NOTE | 2018-11-26 22:10 | XRAY ---
Indication: Short of breath. History lung cancer. Multiple contiguous axial images obtained through the chest using IV cc Isovue 370 contrast and PE protocol. Comparison: None. There is satisfactory opacification of the pulmonary arteries. However mild respiration artifact limits evaluation of the more distal branches. No obvious pulmonary embolus. Heart is not enlarged. Aorta is normal in course and caliber. Right-sided Port-A-Cath. A few tiny mediastinal and bilateral hilar calcified nodes. Lungs demonstrates left hilar/suprahilar pleural parenchymal masslike opacity measuring 9.0 x 4.2 x 6.0 cm either known malignancy versus post therapeutic scarring. Elsewhere right mid to lower long and left lower lobe atelectasis/scarring. Moderate bilateral pleural effusions, right greater than left. Left posterior lateral percutaneous drainage catheter in situ. No pneumothorax. Bony thorax intact with mild degenerative changes throughout the spine. Limited upper abdomen demonstrates incompletely visualized large bilateral adrenal masses, left measuring at least 10 cm and the right 9 cm both probably metastatic. Impression: 1. Mild respiration artifact. No obvious pulmonary embolus. 2. Left hilar/suprahilar pleural parenchymal masslike opacity either known malignancy versus post-therapeutic scarring. Comparison studies would be of benefit. 3. Moderate bilateral pleural effusions with left-sided percutaneous drainage catheter in situ. 4. Incompletely visualized large bilateral adrenal masses probably metastatic. Comment: Preliminary interpretation was made by C. No discrepancy.
== END 2018-11-26 21:51 | disposition short-term general hospital (02) ==
LOC: ED 16:50
DX: R91.8 Other nonspecific abnormal finding of lung field (principal); I25.10 Atherosclerotic heart disease of native coronary artery without angina pectoris; R06.02 Shortness of breath
CPT/HCPCS: 36000; 36415; 71045; 71260; 80053; 83605; 83690; 83880; 84484; 85025; 85379; 85610; 87040; 93005; 93041; 94150; 94640; 96360; 96365; 96374; 99285; J1940; J2543; A9270-GY

== ENCOUNTER 2019-05-29 12:13 | Inpatient (IN) | payer MEDICARE, OTHER ==
[2019-05-29 14:13] LABS: Absolute Neutrophil Ct (ANC) 5.45 (1.4-6.9); BASOPHIL % 0.3 % (0.0-0.4); Basophil (Absolute #) 0.02 (0-0.4); Eosinophil % 0.9 % (0.00-5.0); Eosinophil (Absolute #) 0.06 (0-0.5); Hematocrit 34.6 % (42-50); Hemoglobin 11.6 gm/dl (12.5-18.0); Lymphocyte (Absolute #) 0.46 (1.0-4.6); Lymphocytes % 7.1 % (24.0-44.0); Mean Corpuscular Hemoglobin 30.9 pg (26-32); Mean Corpuscular Hgb Concent. 33.5 g/dl (32-36); Mean Platelet Volume 8.1 fl (7.5-11.0); Monocyte (Absolute #) 0.53 (0.0-1.3); Monocytes % 8.1 % (0.0-12.0); Neutrophil % 83.6 % (36.0-66.0); Platelet Count 95 K/mm3 (150-450); Red Blood Count 3.76 M/mm3 (4.1-5.6); Red Cell Distribution Width 14.1 % (11.5-14.0); White Blood Count 6.5 K/mm3 (4.0-10.5)
[2019-05-29 14:15] LABS: ALBUMIN 3.5 g/dL (3.5-5.0); ALKALINE PHOSPHATASE 67 U/L (38-126); ANION GAP 13.2 MEQ/L (5-15); BLOOD UREA NITROGEN 9 mg/dL (9-20); CHLORIDE 101 mmol/L (98-107); Calcium 8.8 mg/dL (8.4-10.2); Carbon Dioxide 25 mmol/L (22-30); Creatinine 1 0.57 mg/dL (0.66-1.25); Glucose 104 mg/dL (74-106); MAGNESIUM 1.6 mg/dL (1.6-2.3); Potassium 4.1 mmol/L (3.5-5.1); SGOT/AST 18 U/L (17-59); SGPT/ALT 8 U/L (0-50); SODIUM 135 mmol/L (137-145); Total Protein 7.1 g/dL (6.3-8.2)
[2019-05-29 15:04] LABS: Slide Review 1 YES
--- NOTE | 2019-05-29 15:33 | ERPHSYRPT ---
- History of Present Illness Time Seen by Provider: 05/29/19 12:20 Source: patient Exam Limitations: no limitations Patient Subjective Stated Complaint: "im here because za been weak several days " Triage Nursing Assessment: Patient present alert, oriented x3, color fair, resp easy, denies chest pain, denies shortness of breath, c/o feeling very weak for several days and unable to take care of self at home. Patient lives at home with . Family states patient has been having falls at home due to weakness. old bruises noted to bilateral arms and to face. Physician History: Patient is a 73-year-old male with a history of metastatic lung cancer presents to our ED with complaints of shortness of progressive generalized weakness and anorexia over the past 3 days. Patient lives with his . Patient states he is unable to care for himself. Patient is too weak to walk. Patient has fallen but has sustained no injuries. He had residual bruises over his face and arms but states this has been worked up at an outside hospital at the time of the injury 3 weeks ago. Symptoms are progressive. Symptoms are moderate intensity. No specific worsening improving factors. Patient voices no other complaints this time. Timing/Duration: week(s) Severity: moderate Associated Symptoms: denies symptoms, No shortness of breath, No diaphoresis, No chest pain, No fever Allergies/Adverse Reactions: No Known Drug Allergies Allergy (Verified 11/26/18 17:15) Home Medications: Allopurinol 100 mg [Zyloprim 100 mg] 100 mg PO HS 04/16/15 [History] Metformin HCl 500 mg [Glucophage 500 MG] 500 mg PO BID 04/16/15 [History] Nitroglycerin 0.4 mg/Hr [Nitro-Dur 0.4 MG/HR] 1 patch TOP HS 04/16/15 [ History] Metoprolol Tartrate 50 mg [Lopressor 50 MG] 25 mg PO BID 09/26/18 [History ] Tamsulosin HCl 0.4 mg PO DAILY 09/26/18 [History] Famotidine 20 mg [Pepcid 20 MG] 20 mg PO UD 11/26/18 [History] Fludrocortisone Acetate 0.1 mg PO DAILY 11/26/18 [History] Hydrocortisone 20 mg PO DAILY 11/26/18 [History] Sertraline HCl 50 mg [Zoloft 50 mg Tablet] 50 mg PO DAILY 11/26/18 [History] Hx Tetanus, Diphtheria Vaccination/Date Given: No Hx Influenza Vaccination/Date Given: Yes Hx Pneumococcal Vaccination/Date Given: No - Review of Systems Constitutional: No Fever, No Chills Eyes: No Symptoms Ears, Nose, & Throat: No Symptoms Respiratory: No Cough, No Dyspnea Cardiac: No Chest Pain, No Edema, No Syncope Abdominal/Gastrointestinal: No Abdominal Pain, No Nausea, No Vomiting, No Diarrhea Genitourinary Symptoms: No Dysuria Musculoskeletal: No Back Pain, No Neck Pain Skin: No Rash Neurological: No Dizziness, No Focal Weakness, No Sensory Changes Psychological: No Symptoms Endocrine: No Symptoms All Other Systems: Reviewed and Negative - Past Medical History Pertinent Past Medical History: Yes Neurological History: No Pertinent History ENT History: No Pertinent History Cardiac History: Coronary Artery Disease, Myocardial Infarction ([place]) Respiratory History: Lung Cancer Endocrine Medical History: Diabetes Type II Musculoskeletal History: No Pertinent History GI Medical History: Polyps History: No Pertinent History Psycho-Social History: No Pertinent History Male Reproductive Disorders: No Pertinent History Other Medical History: TAKES METFORMIN - Past Surgical History Past Surgical History: Yes Neuro Surgical History: No Pertinent History Cardiac: Cardiac Catheterization, Cardiac Stent Respiratory: No Pertinent History Gastrointestinal: Other Genitourinary: No Pertinent History Musculoskeletal: No Pertinent History Male Surgical History: Vasectomy Other Surgical History: pt currently has lung cancer and is receiving immunotherapy for that. PARATHYROID SURGERY "YEARS AGO" - Social History Smoking Status: Never smoker How long have you smoked: 30 years Exposure to second hand smoke: No Drug Use: none Patient Lives Alone: No - Nursing Vital Signs Nursing Vital Signs: Initial Vital Signs Temperature 97.9 F 05/29/19 12:16 Pulse Rate 72 05/29/19 12:16 Respiratory Rate 20 05/29/19 12:16 Blood Pressure 122/73 05/29/19 12:16 O2 Sat by Pulse Oximetry 97 05/29/19 12:16 Pain Scale Pain Intensity 0 - Physical Exam General Appearance: no apparent distress, alert, other (Patient appears frail and dehydrated. He states he has lost significant amount of weight over the past several weeks.) Eye Exam: PERRL/EOMI, eyes nml inspection Ears, Nose, Throat Exam: normal ENT inspection, TMs normal, pharynx normal, moist mucous membranes Neck Exam: normal inspection, non-tender, supple, full range of motion Respiratory Exam: normal breath sounds, lungs clear, No respiratory distress Cardiovascular Exam: regular rate/rhythm, normal heart sounds, normal peripheral pulses Gastrointestinal/Abdomen Exam: soft, normal bowel sounds, No tenderness, No mass Back Exam: normal inspection, normal range of motion, No CVA tenderness, No vertebral tenderness Extremity Exam: normal inspection, normal range of motion, pelvis stable Neurologic Exam: alert, oriented x 3, cooperative, normal mood/affect, nml cerebellar function, nml station & gait, sensation nml, No motor deficits Skin Exam: normal color, warm, dry, No rash Lymphatic Exam: No adenopathy SpO2 Interpretation: normal SpO2: 96 O2 Delivery: Room Air - Course Nursing assessment & vital signs reviewed: Yes - Radiology Exams Chest X-ray Interpretation: Interpreted by me (Left pleural effusion and left hilar mass. No pneumonia) Ordered Tests: Active Orders 24 hr Category Date Time Status Creative Coordinator STAT Care 05/29/19 13:08 Active IV Insertion STAT Care 05/29/19 13:07 Active CHEST 1 VIEW (PORTABLE) Stat Exams 05/29/19 13:38 Taken CBC W DIFF Stat Lab 05/29/19 13:50 Completed CMP Stat Lab 05/29/19 13:50 Completed MAGNESIUM Stat Lab 05/29/19 13:50 Completed UA W/RFX UR CULTURE Stat Lab 05/29/19 13:08 Ordered Transfer Order Routine Transfer 05/29/19 Ordered Lab/Rad Data: Laboratory Result Diagrams 05/29/19 13:50 05/29/19 13:50 Laboratory Results 05/29/19 05/29/19 Range/Units 13:50 13:50 WBC 6.5 (4.0-10.5) K/mm3 RBC 3.76 L (4.1-5.6) M/mm3 Hgb 11.6 L (12.5-18.0) gm/dl Hct 34.6 L (42-50) % MCV 92.0 (78-100) fl MCH 30.9 (26-32) pg MCHC 33.5 (32-36) g/dl RDW 14.1 H (11.5-14.0) % Plt Count 95 L (150-450) K/mm3 MPV 8.1 (7.5-11.0) fl Gran % 83.6 H (36.0-66.0) % Eos # (Auto) 0.06 (0-0.5) Absolute Lymphs (auto) 0.46 L (1.0-4.6) Absolute Monos (auto) 0.53 (0.0-1.3) Lymphocytes % 7.1 L (24.0-44.0) % Monocytes % 8.1 (0.0-12.0) % Eosinophils % 0.9 (0.00-5.0) % Basophils % 0.3 (0.0-0.4) % Absolute Granulocytes 5.45 (1.4-6.9) Basophils # 0.02 (0-0.4) Sodium 135 L (137-145) mmol/L Potassium 4.1 (3.5-5.1) mmol/L Chloride 101 (98-107) mmol/L Carbon Dioxide 25 (22-30) mmol/L Anion Gap 13.2 (5-15) MEQ/L BUN 9 (9-20) mg/dL Creatinine 0.57 L (0.66-1.25) mg/dL Estimated GFR > 60.0 ML/MIN Glucose 104 (74-106) mg/dL Calcium 8.8 (8.4-10.2) mg/dL Magnesium 1.6 (1.6-2.3) mg/dL Total Bilirubin 0.50 (0.2-1.3) mg/dL AST 18 (17-59) U/L ALT 8 (0-50) U/L Alkaline Phosphatase 67 (38-126) U/L Serum Total Protein 7.1 (6.3-8.2) g/dL Albumin 3.5 (3.5-5.0) g/dL Slides for Path Review YES - Progress Progress: improved Progress Note: 05/29/19 15:50 Patient reassessed. He feels better after IV fluid administration. However patient is still generally weak. at the bedside. They feel he is too weak to go home. Case discussed with Dr. Gruber who accepts admission to observation. Plan of care discussed with patient. He agrees to admission to [facility] for further evaluation and treatment. Discussed with : Kelly Will see patient in: hospital (observation) Counseled pt/family regarding: lab results, diagnosis, rad results - Departure Departure Disposition: Observation Clinical Impression: Dehydration, Generalized weakness, Failure to thrive, Lung cancer Condition: Stable Critical Care Time: No Referrals: GYPSY MANSFIELD [Primary Care Provider] -
[2019-05-29] MEDS: Sodium Chloride 0.9% 1000 ML 1,000 ML IV SCH (18:14)
[2019-05-29] MEDS ORDERED: Glucophage 500 MG ONE (21:02)
--- NOTE | 2019-05-29 21:22 | XRAY ---
Indication: Cough 4 days. Comparison: December 07, 2018. Portable apical lordotic chest again demonstrates left perihilar masslike opacity grossly unchanged. Stable small left effusion with percutaneous drainage catheter. Right lung clear. No pneumothorax. Heart is not enlarged with stable right Port-A-Cath. Bony thorax intact again with mild degenerative changes. Impression: Continued nonacute chest with chronic features.
[2019-05-29] MEDS: Coreg 3.125 MG PO SCH (21:55)
[2019-05-29] MEDS: ZYLOPRIM 100 MG PO SCH (21:56)
[2019-05-29] MEDS: Nitro-Dur 0.4 MG/HR TD SCH (21:56)
[2019-05-29] MEDS: ZOLOFT 50 MG TABLET PO SCH (21:56)
[2019-05-29] MEDS ORDERED: Glucophage 500 MG PO SCH (22:00)
[2019-05-30] MEDS: Sodium Chloride 0.9% 1000 ML 1,000 ML IV SCH ×2 (03:49→14:36)
[2019-05-30 04:50] LABS: Absolute Neutrophil Ct (ANC) 3.58 (1.4-6.9); BASOPHIL % 0.2 % (0.0-0.4); Basophil (Absolute #) 0.01 (0-0.4); Eosinophil % 1.8 % (0.00-5.0); Eosinophil (Absolute #) 0.08 (0-0.5); Hematocrit 32.3 % (42-50); Hemoglobin 10.8 gm/dl (12.5-18.0); Lymphocyte (Absolute #) 0.45 (1.0-4.6); Lymphocytes % 10.1 % (24.0-44.0); Mean Cell Volume 91.2 fl (78-100); Mean Corpuscular Hemoglobin 30.5 pg (26-32); Mean Corpuscular Hgb Concent. 33.4 g/dl (32-36); Mean Platelet Volume 7.6 fl (7.5-11.0); Monocyte (Absolute #) 0.33 (0.0-1.3); Monocytes % 7.4 % (0.0-12.0); Neutrophil % 80.5 % (36.0-66.0); Platelet Count 91 K/mm3 (150-450); Red Blood Count 3.54 M/mm3 (4.1-5.6); Red Cell Distribution Width 13.7 % (11.5-14.0); White Blood Count 4.5 K/mm3 (4.0-10.5)
[2019-05-30 05:01] LABS: ALBUMIN 3.2 g/dL (3.5-5.0); ALKALINE PHOSPHATASE 55 U/L (38-126); ANION GAP 10.7 MEQ/L (5-15); BLOOD UREA NITROGEN 10 mg/dL (9-20); CHLORIDE 103 mmol/L (98-107); Calcium 8.5 mg/dL (8.4-10.2); Carbon Dioxide 24 mmol/L (22-30); Creatinine 1 0.53 mg/dL (0.66-1.25); Glucose 85 mg/dL (74-106); Potassium 3.9 mmol/L (3.5-5.1); SGOT/AST 18 U/L (17-59); SGPT/ALT 6 U/L (0-50); SODIUM 134 mmol/L (137-145); Total Protein 6.4 g/dL (6.3-8.2)
[2019-05-30 05:37] LABS: Slide Review 1 YES
[2019-05-30] MEDS ORDERED: Glucophage 500 MG PO SCH (08:00)
[2019-05-30 08:10] LABS: Appearance CLEAR (CLEAR); Bacteria RARE /HPF (NEGATIVE); Bilirubin NEGATIVE (NEGATIVE); Blood SMALL Ery/ul (0-5); Glucose NEGATIVE (NEGATIVE); Ketones NEGATIVE (NEGATIVE); Leukocyte Esterase NEGATIVE (NEGATIVE); Nitrite NEGATIVE (NEGATIVE); Protein,Urine Dip NEGATIVE (Negative); Specific Gravity 1.012 (1.005-1.025); Urobilinogen NEGATIVE mg/dL (0-1)
--- NOTE | 2019-05-30 08:39 | PCM.HP ---
History of Present Illness - Chief Complaint Chief Complaint: weakness,dehydration, lung cancer History of Present Illness: is a 73 year old male pt of mine from [facility] with metastatic lung cancer who was admitted through ER with weakness and failure to thrive. He has been feeling weak and having falls at home; saw me in the office on 05/24/19 and was scheduled for PT. No new falls. Has been having increased cough over baseline for the past 1 mo with increased sputum. - Review of Systems Constitutional: Weakness Respiratory: Cough, Short Of Breath Abdominal/Gastrointestinal: Appetite Changes (no appetite but eats well) Genitourinary Symptoms: Other (urine is somewhat darker than usual) All Other Systems: Reviewed and Negative Medications & Allergies Home Medications: Home Medication List Allopurinol 100 mg [Zyloprim 100 mg] 100 mg PO HS 04/16/15 [History Confirmed 05/29/19] Metformin HCl 500 mg [Glucophage 500 MG] 500 mg PO BID 04/16/15 [History Confirmed 05/29/19] Nitroglycerin 0.4 mg/Hr [Nitro-Dur 0.4 MG/HR] 1 patch TOP HS 04/16/15 [ History Confirmed 05/29/19] Hydrocortisone 20 mg PO DAILY 11/26/18 [History Confirmed 05/29/19] Sertraline HCl 50 mg [Zoloft 50 mg Tablet] 50 mg PO HS 11/26/18 [History Confirmed 05/29/19] Carvedilol [Coreg] 3.125 mg PO BID 05/29/19 [History Confirmed 05/29/19] Furosemide [Lasix] 20 mg PO DAILY 05/29/19 [History Confirmed 05/29/19] Magnesium Oxide 400 mg [Mag-Ox 400] 400 mg PO DAILY 05/29/19 [History Confirmed 05/29/19] Potassium Chloride 10 Meq Tab* [Klor Con 10 MEQ] 10 meq PO DAILY 05/29/19 [ History Confirmed 05/29/19] lisinopriL [Lisinopril] 2.5 mg PO DAILY 05/29/19 [History Confirmed 05/29/19] Allergies/Adverse Reactions: Allergies Allergy/AdvReac Type Severity Reaction Status Date / Time No Known Drug Allergies Allergy Verified 05/29/19 17:01 - Past Medical History Past Medical History: Yes Neurological History: No Pertinent History ENT History: No Pertinent History Cardiac History: Coronary Artery Disease, Myocardial Infarction (VT) Respiratory History: Lung Cancer Endocrine Medical History: Diabetes Type II Musculoskelatal History: No Pertinent History GI Medical History: Polyps History: No Pertinent History Pyscho-Social History: No Pertinent History Male Reproductive Disorders: No Pertinent History Comment: TAKES METFORMIN - Past Surgical History Past Surgical History: Yes Neuro Surgical History: No Pertinent History Cardiac History: Cardiac Catheterization, Cardiac Stent Respiratory Surgery: No Pertinent History GI Surgical History: Other Genitourinary Surgical Hx: No Pertinent History Musculskeletal Surgical Hx: No Pertinent History Male Surgical History: Vasectomy Other Surgical History: pt currently has lung cancer and is receiving immunotherapy for that. PARATHYROID SURGERY "YEARS AGO" - Social History Smoking Status: Former smoker How long have you smoked: 30 years Exposure to second hand smoke: No Alcohol: None Drug Use: none - Physical Exam Vital Signs: Vital Signs - 24 hr Temp Pulse Resp BP Pulse Ox 05/30/19 04:00 98.3 F 70 18 150/76 95 05/30/19 00:00 98.3 F 92 H 18 124/58 95 05/29/19 20:00 98.2 F 72 16 112/72 92 L 05/29/19 17:02 98 F 64 16 129/63 93 L 05/29/19 16:54 98.1 F 64 16 129/63 93 L 05/29/19 16:00 98.1 F 64 16 129/63 93 L 05/29/19 15:51 96 05/29/19 15:16 66 16 101/61 96 05/29/19 13:09 69 17 122/64 97 05/29/19 12:16 97.9 F 72 20 122/73 97 General Appearance: no apparent distress, alert Neurologic Exam: oriented x 3, cooperative Eye Exam: eyes nml inspection Ears, Nose, Throat Exam: moist mucous membranes Neck Exam: normal inspection Respiratory Exam: diminished breath sounds (in RLL), No crackles/rales, No rhonchi, No wheezing Cardiovascular Exam: regular rate/rhythm, normal heart sounds, No murmur Extremity Exam: normal inspection, No pedal edema, No swelling Skin Exam: warm, dry, other (purple bruises lateral to R eye), No rash Wound Assessment: Skin/Wound Assessment Wound/Incision Assessment Start: 05/29/19 17: 45 Text: Status: Active Freq: Q6H Protocol: Document 05/30/19 07:49 DINESH (Rec: 05/30/19 07:52 DINESH [id number]) Wound/Incision Assessment Left Lower Chest Wound Assessment Shift Assessment Wound Stage Non Pressure Wound Drainage Amount None Drainage Odor None/Absent Primary Dressing Gauze Pads Comment pleuritic drain with guaze dressing in place-dressing dry and intact. Left Lower Arm Wound Assessment Shift Assessment Wound Type Skin Tear Wound Stage Non Pressure Wound Drainage Amount None General Appearance Open to air Comment Healing skin tear and multiple bruises to left lower arm. Left Upper Arm Wound Assessment Shift Assessment Wound Type Skin Tear Wound Stage Non Pressure Wound Dressing Status Dry & Intact Drainage Amount None Comment tegaderm in place Results - Labs Lab/Micro Results: Accuchecks Date 05/30/19 Time 08:11 Accucheck Value: 85 Lab Results-Last 24 Hours 05/29/19 05/29/19 05/30/19 Range/Units 13:50 13:50 04:35 WBC 6.5 4.5 (4.0-10.5) K/mm3 RBC 3.76 L 3.54 L (4.1-5.6) M/mm3 Hgb 11.6 L 10.8 L (12.5-18.0) gm/dl Hct 34.6 L 32.3 L (42-50) % MCV 92.0 91.2 (78-100) fl MCH 30.9 30.5 (26-32) pg MCHC 33.5 33.4 (32-36) g/dl RDW 14.1 H 13.7 (11.5-14.0) % Plt Count 95 L 91 L (150-450) K/mm3 MPV 8.1 7.6 (7.5-11.0) fl Gran % 83.6 H 80.5 H (36.0-66.0) % Eos # (Auto) 0.06 0.08 (0-0.5) Absolute Lymphs (auto) 0.46 L 0.45 L (1.0-4.6) Absolute Monos (auto) 0.53 0.33 (0.0-1.3) Lymphocytes % 7.1 L 10.1 L (24.0-44.0) % Monocytes % 8.1 7.4 (0.0-12.0) % Eosinophils % 0.9 1.8 (0.00-5.0) % Basophils % 0.3 0.2 (0.0-0.4) % Absolute Granulocytes 5.45 3.58 (1.4-6.9) Basophils # 0.02 0.01 (0-0.4) Sodium 135 L (137-145) mmol/L Potassium 4.1 (3.5-5.1) mmol/L Chloride 101 (98-107) mmol/L Carbon Dioxide 25 (22-30) mmol/L Anion Gap 13.2 (5-15) MEQ/L BUN 9 (9-20) mg/dL Creatinine 0.57 L (0.66-1.25) mg/dL Estimated GFR > 60.0 ML/MIN Glucose 104 (74-106) mg/dL Hemoglobin A1c (4.5-6.0) % Calcium 8.8 (8.4-10.2) mg/dL Magnesium 1.6 (1.6-2.3) mg/dL Total Bilirubin 0.50 (0.2-1.3) mg/dL AST 18 (17-59) U/L ALT 8 (0-50) U/L Alkaline Phosphatase 67 (38-126) U/L Serum Total Protein 7.1 (6.3-8.2) g/dL Albumin 3.5 (3.5-5.0) g/dL Urine Color (YELLOW) Urine Appearance (CLEAR) Urine pH (5-6) Ur Specific [place] (1.005-1.025) Urine Protein (Negative) Urine Ketones (NEGATIVE) Urine Blood (0-5) Marcelo/ul Urine Nitrite (NEGATIVE) Urine Bilirubin (NEGATIVE) Urine Urobilinogen (0-1) mg/dL Ur Leukocyte Esterase (NEGATIVE) Urine WBC (Auto) (0-5) /HPF Urine RBC (Auto) (0-2) /HPF U Epithel Cells (Auto) (FEW) /HPF Urine Bacteria (Auto) (NEGATIVE) /HPF Urine Culture Reflexed (NO) Urine Glucose (NEGATIVE) mg/dL Slides for Path Review YES YES 05/30/19 05/30/19 05/30/19 Range/Units 04:35 05:25 08:13 WBC (4.0-10.5) K/mm3 RBC (4.1-5.6) M/mm3 Hgb (12.5-18.0) gm/dl Hct (42-50) % MCV (78-100) fl MCH (26-32) pg MCHC (32-36) g/dl RDW (11.5-14.0) % Plt Count (150-450) K/mm3 MPV (7.5-11.0) fl Gran % (36.0-66.0) % Eos # (Auto) (0-0.5) Absolute Lymphs (auto) (1.0-4.6) Absolute Monos (auto) (0.0-1.3) Lymphocytes % (24.0-44.0) % Monocytes % (0.0-12.0) % Eosinophils % (0.00-5.0) % Basophils % (0.0-0.4) % Absolute Granulocytes (1.4-6.9) Basophils # (0-0.4) Sodium 134 L (137-145) mmol/L Potassium 3.9 (3.5-5.1) mmol/L Chloride 103 (98-107) mmol/L Carbon Dioxide 24 (22-30) mmol/L Anion Gap 10.7 (5-15) MEQ/L BUN 10 (9-20) mg/dL Creatinine 0.53 L (0.66-1.25) mg/dL Estimated GFR > 60.0 ML/MIN Glucose 85 (74-106) mg/dL Hemoglobin A1c 5.42 (4.5-6.0) % Calcium 8.5 (8.4-10.2) mg/dL Magnesium (1.6-2.3) mg/dL Total Bilirubin 0.50 (0.2-1.3) mg/dL AST 18 (17-59) U/L ALT 6 (0-50) U/L Alkaline Phosphatase 55 (38-126) U/L Serum Total Protein 6.4 (6.3-8.2) g/dL Albumin 3.2 L (3.5-5.0) g/dL Urine Color YELLOW (YELLOW) Urine Appearance CLEAR (CLEAR) Urine pH 7.0 (5-6) Ur Specific [place] 1.012 (1.005-1.025) Urine Protein NEGATIVE (Negative) Urine Ketones NEGATIVE (NEGATIVE) Urine Blood SMALL (0-5) Marcelo/ul Urine Nitrite NEGATIVE (NEGATIVE) Urine Bilirubin NEGATIVE (NEGATIVE) Urine Urobilinogen NEGATIVE (0-1) mg/dL Ur Leukocyte Esterase NEGATIVE (NEGATIVE) Urine WBC (Auto) NONE (0-5) /HPF Urine RBC (Auto) 11-15 (0-2) /HPF U Epithel Cells (Auto) NONE (FEW) /HPF Urine Bacteria (Auto) RARE (NEGATIVE) /HPF Urine Culture Reflexed NO (NO) Urine Glucose NEGATIVE (NEGATIVE) mg/dL Slides for Path Review Accuchecks Date 05/30/19 Time 08:11 Accucheck Value: 85 - Radiology Impressions Radiology Exams & Impressions: Radiology Procedures Category Date Time Status CHEST 1 VIEW (PORTABLE) Stat Exams 05/29/19 13:38 Completed Assessment/Plan (1) COPD exacerbation Current Visit: Yes Status: Acute Assessment & Plan: Started pt on rocephin and zithromax. Code(s): J44.1 - CHRONIC OBSTRUCTIVE PULMONARY DISEASE W (ACUTE) EXACERBATION (2) Weakness Current Visit: Yes Status: Acute Assessment & Plan: consult PT Code(s): R53.1 - WEAKNESS (3) Dehydration Current Visit: Yes Status: Acute Assessment & Plan: continue IV fluids Code(s): E86.0 - DEHYDRATION (4) Lung cancer Current Visit: Yes Status: Chronic Qualifiers: Laterality: left Lung location: upper lobe of lung Qualified Code(s): C34.12 - Malignant neoplasm of upper lobe, left bronchus or lung Code(s): C34.90 - MALIGNANT NEOPLASM OF UNSP PART OF UNSP BRONCHUS OR LUNG (5) Diabetes mellitus Current Visit: No Status: Chronic Qualifiers: Diabetes mellitus type: type 2 Diabetes mellitus moth exterminator insulin use: without fpc use Diabetes mellitus complication status: without complication Qualified Code(s): E11.9 - Type 2 diabetes mellitus without complications Assessment & Plan: as a1c is 5.42, will d/c metformin. Code(s): E11.9 - TYPE 2 DIABETES MELLITUS WITHOUT COMPLICATIONS (6) Hypertension Current Visit: No Status: Chronic Qualifiers: Hypertension type: essential hypertension Qualified Code(s): I10 - Essential (primary) hypertension Assessment & Plan: Doing well Code(s): I10 - ESSENTIAL (PRIMARY) HYPERTENSION
[2019-05-30] MEDS: Zithromax 500 MG/ 250 ML NaCl Premix 500 MG/250 ML IVPB IV SCH (09:23)
[2019-05-30] MEDS: ROCEPHIN 1 Gm-D5w 50 ml Bag** 1 G/50 ML IVPB IV SCH (09:23)
[2019-05-30] MEDS: Klor Con 10 MEQ PO SCH (09:24)
[2019-05-30] MEDS: MAG-OX 400 PO SCH (09:24)
[2019-05-30] MEDS: Coreg 3.125 MG PO SCH ×2 (09:24→22:04)
[2019-05-30] MEDS: LASIX 20 MG PO SCH (09:24)
[2019-05-30] MEDS: Zestril 5 MG PO SCH (09:24)
[2019-05-30] MEDS: HYDROCORTISONE PO SCH (09:25)
[2019-05-30] MEDS ORDERED: HYDROCORTISONE 20 MG PO SCH (10:00)
[2019-05-30] MEDS: Nitro-Dur 0.4 MG/HR TD SCH (22:02)
[2019-05-30] MEDS: ZOLOFT 50 MG TABLET PO SCH (22:04)
[2019-05-30] MEDS: ZYLOPRIM 100 MG PO SCH (22:04)
[2019-05-31] MEDS: Sodium Chloride 0.9% 1000 ML 1,000 ML IV SCH (02:13)
[2019-05-31 05:01] LABS: Hematocrit 32.6 % (42-50); Hemoglobin 10.8 gm/dl (12.5-18.0); Mean Cell Volume 90.8 fl (78-100); Mean Corpuscular Hemoglobin 30.1 pg (26-32); Mean Corpuscular Hgb Concent. 33.1 g/dl (32-36); Mean Platelet Volume 7.9 fl (7.5-11.0); Platelet Count 97 K/mm3 (150-450); Red Blood Count 3.59 M/mm3 (4.1-5.6); Red Cell Distribution Width 13.9 % (11.5-14.0); White Blood Count 3.9 K/mm3 (4.0-10.5)
[2019-05-31 05:20] LABS: ANION GAP 9.6 MEQ/L (5-15); BLOOD UREA NITROGEN 11 mg/dL (9-20); CHLORIDE 103 mmol/L (98-107); Calcium 8.5 mg/dL (8.4-10.2); Carbon Dioxide 26 mmol/L (22-30); Creatinine 1 0.58 mg/dL (0.66-1.25); Glucose 84 mg/dL (74-106); Potassium 3.7 mmol/L (3.5-5.1); SODIUM 134 mmol/L (137-145)
[2019-05-31 05:39] LABS: Slide Review YES
[2019-05-31] MEDS ORDERED: PROVENTIL 2.5 MG/3 ML NEB IH PRN (08:47)
--- NOTE | 2019-05-31 08:48 | PCM.NOTE ---
Date and Time: 1945 Subjective Assessment: Pt is feeling "fine" this morning, but still weak. Melly po. - Review of Systems Constitutional: No Fever Abdominal/Gastrointestinal: No Vomiting Objective Exam General Appearance: no apparent distress, alert Neurologic Exam: cooperative, normal mood/affect Skin Exam: normal color, warm, dry, No rash Wound Assessment: Skin/Wound Assessment Wound/Incision Assessment Start: 05/29/19 17: 45 Text: Status: Active Freq: Q6H Protocol: Document 05/31/19 07:59 DINESH (Rec: 05/31/19 08:03 [id number]) Wound/Incision Assessment Left Lower Chest Wound Assessment Shift Assessment Wound Stage Non Pressure Wound Drainage Amount None Drainage Odor None/Absent Primary Dressing Gauze Pads Comment pleuritic drain with guaze dressing in place-dressing CDI - dressing changed once a week and was last changed on 05/28 Left Lower Arm Wound Assessment Shift Assessment Wound Type Skin Tear Wound Stage Non Pressure Wound Drainage Amount Moderate Drainage Description Sanguineous General Appearance Bleeding Primary Dressing tegaderm Comment - Left Upper Arm Wound Assessment Shift Assessment Wound Type Skin Tear Wound Stage Non Pressure Wound Dressing Status Dry & Intact Drainage Amount None Primary Dressing tegaderm Comment tegaderm in place Ears, Nose, Throat Exam: moist mucous membranes Respiratory Exam: normal breath sounds, lungs clear, wheezing (faint expiratory wheeze, scattered), No crackles/rales, No rhonchi Cardiovascular Exam: regular rate/rhythm, normal heart sounds, No murmur Extremity Exam: No pedal edema, No swelling Back Exam: normal inspection, No rash OBJECTIVE DATA Vital Signs: Vital Signs - 24 hr Temp Pulse Resp BP Pulse Ox 05/31/19 08:00 98.1 F 64 18 140/73 96 05/31/19 04:00 98.7 F 71 16 149/73 94 L 05/31/19 00:00 98.1 F 61 16 139/65 94 L 05/30/19 20:00 98.5 F 66 20 159/78 95 05/30/19 16:54 93 L 05/30/19 16:00 98.4 F 65 16 123/57 95 05/30/19 12:00 98.2 F 67 16 122/56 93 L Pain Assessment - Last Documented Pain Intensity 0 Pain Scale Used 0-10 Pain Scale Intake and Output: Intake & Output 05/28/19 05/29/19 05/30/19 05/31/19 11:59 11:59 11:59 11:59 Intake Total 1686 3388 Balance 1686 3388 Weight 78.3 kg Lab Results: Accuchecks Date 05/31/19 Date 05/30/19 Date 05/30/19 Time 08:03 Time 17:00 Time 11:30 Accucheck Value: 91 Accucheck Value: 127 Accucheck Value: 130 Accucheck Value: 100 Lab Results-Last 24 Hours 05/31/19 05/31/19 Range/Units 04:33 04:33 WBC 3.9 L (4.0-10.5) K/mm3 RBC 3.59 L (4.1-5.6) M/mm3 Hgb 10.8 L (12.5-18.0) gm/dl Hct 32.6 L (42-50) % MCV 90.8 (78-100) fl MCH 30.1 (26-32) pg MCHC 33.1 (32-36) g/dl RDW 13.9 (11.5-14.0) % Plt Count 97 L (150-450) K/mm3 MPV 7.9 (7.5-11.0) fl Sodium 134 L (137-145) mmol/L Potassium 3.7 (3.5-5.1) mmol/L Chloride 103 (98-107) mmol/L Carbon Dioxide 26 (22-30) mmol/L Anion Gap 9.6 (5-15) MEQ/L BUN 11 (9-20) mg/dL Creatinine 0.58 L (0.66-1.25) mg/dL Estimated GFR > 60.0 ML/MIN Glucose 84 (74-106) mg/dL Calcium 8.5 (8.4-10.2) mg/dL Slides for Path Review YES Radiology Exams: Radiology Procedures Category Date Time Status CHEST 1 VIEW (PORTABLE) Stat Exams 05/29/19 13:38 Completed Assessment/Plan (1) COPD exacerbation Current Visit: Yes Status: Acute Assessment & Plan: On Rocephin and zithromax day #2. Will add albuterol nebs for the wheezing. Code(s): J44.1 - CHRONIC OBSTRUCTIVE PULMONARY DISEASE W (ACUTE) EXACERBATION (2) Weakness Current Visit: Yes Status: Acute Assessment & Plan: Pt and would be agreeable to short term rehab stay - very interested in swing bed. Code(s): R53.1 - WEAKNESS (3) Dehydration Current Visit: Yes Status: Resolved Code(s): E86.0 - DEHYDRATION (4) Lung cancer Current Visit: Yes Status: Chronic Qualifiers: Laterality: left Lung location: upper lobe of lung Qualified Code(s): C34.12 - Malignant neoplasm of upper lobe, left bronchus or lung Code(s): C34.90 - MALIGNANT NEOPLASM OF UNSP PART OF UNSP BRONCHUS OR LUNG (5) Diabetes mellitus Current Visit: No Status: Chronic Qualifiers: Diabetes mellitus type: type 2 Diabetes mellitus predatory animal exterminator insulin use: without predatory animal exterminator use Diabetes mellitus complication status: without complication Qualified Code(s): E11.9 - Type 2 diabetes mellitus without complications Code(s): E11.9 - TYPE 2 DIABETES MELLITUS WITHOUT COMPLICATIONS (6) Hypertension Current Visit: No Status: Chronic Qualifiers: Hypertension type: essential hypertension Qualified Code(s): I10 - Essential (primary) hypertension Code(s): I10 - ESSENTIAL (PRIMARY) HYPERTENSION
[2019-05-31] MEDS: Klor Con 10 MEQ PO SCH (09:15)
[2019-05-31] MEDS: Coreg 3.125 MG PO SCH ×2 (09:15→21:24)
[2019-05-31] MEDS: MAG-OX 400 PO SCH (09:15)
[2019-05-31] MEDS: Zestril 5 MG PO SCH (09:15)
[2019-05-31] MEDS: ROCEPHIN 1 Gm-D5w 50 ml Bag** 1 G/50 ML IVPB IV SCH (09:16)
[2019-05-31] MEDS: Zithromax 500 MG/ 250 ML NaCl Premix 500 MG/250 ML IVPB IV SCH (09:16)
[2019-05-31] MEDS: HYDROCORTISONE PO SCH (09:17)
[2019-05-31] MEDS: LASIX 20 MG PO SCH (10:33)
[2019-05-31] MEDS: ZYLOPRIM 100 MG PO SCH (21:24)
[2019-05-31] MEDS: Nitro-Dur 0.4 MG/HR TD SCH (21:24)
[2019-05-31] MEDS: ZOLOFT 50 MG TABLET PO SCH (21:24)
[2019-06-01 05:03] LABS: Hemoglobin 10.8 gm/dl (12.5-18.0); Mean Cell Volume 90.4 fl (78-100); Mean Corpuscular Hemoglobin 30.5 pg (26-32); Mean Corpuscular Hgb Concent. 33.8 g/dl (32-36); Mean Platelet Volume 7.8 fl (7.5-11.0); Platelet Count 98 K/mm3 (150-450); Red Blood Count 3.54 M/mm3 (4.1-5.6); Red Cell Distribution Width 13.8 % (11.5-14.0); White Blood Count 4.2 K/mm3 (4.0-10.5)
[2019-06-01 05:20] LABS: ANION GAP 9.5 MEQ/L (5-15); BLOOD UREA NITROGEN 11 mg/dL (9-20); CHLORIDE 104 mmol/L (98-107); Calcium 8.7 mg/dL (8.4-10.2); Carbon Dioxide 27 mmol/L (22-30); Creatinine 1 0.58 mg/dL (0.66-1.25); Glucose 91 mg/dL (74-106); Potassium 3.7 mmol/L (3.5-5.1); SODIUM 137 mmol/L (137-145)
[2019-06-01 05:43] LABS: Slide Review YES
--- NOTE | 2019-06-01 08:12 | PCM.NOTE ---
Date and Time: 06/01/19 0809 Subjective Assessment: Pt is feeling better. Has been getting PT twice a day. Melly po well. - Review of Systems Constitutional: No Fever Respiratory: Cough Objective Exam General Appearance: no apparent distress, alert Neurologic Exam: cooperative Skin Exam: warm, dry, other (fading purple/yellow macular bruising lateral to R eye), No rash Wound Assessment: Skin/Wound Assessment Wound/Incision Assessment Start: 05/29/19 17: 45 Text: Status: Active Freq: Q6H Protocol: Document 06/01/19 07:11 DINESH (Rec: 06/01/19 07:12 DINESH [id number]) Wound/Incision Assessment Left Lower Chest Wound Assessment Shift Assessment Wound Stage Non Pressure Wound Drainage Amount None Drainage Odor None/Absent Primary Dressing Gauze Pads Comment pleuritic drain with gauze dressing in place-dressing CDI - dressing changed once a week and was last changed on 05/28 Left Lower Arm Wound Assessment Shift Assessment Wound Type Skin Tear Wound Stage Non Pressure Wound Drainage Amount Moderate Drainage Description Sanguineous General Appearance Bleeding Primary Dressing tegaderm Comment - Left Upper Arm Wound Assessment Shift Assessment Wound Type Skin Tear Wound Stage Non Pressure Wound Dressing Status Dry & Intact Drainage Amount None Primary Dressing tegaderm Comment tegaderm in place Ears, Nose, Throat Exam: moist mucous membranes Neck Exam: normal inspection Respiratory Exam: diminished breath sounds (good air exchange), No crackles/ rales, No rhonchi, No wheezing Cardiovascular Exam: regular rate/rhythm, normal heart sounds, No murmur Gastrointestinal/Abdomen Exam: soft, normal bowel sounds, No tenderness, No distention, No mass, No guarding, No rebound Extremity Exam: No pedal edema, No swelling Back Exam: normal inspection, No rash OBJECTIVE DATA Vital Signs: Vital Signs - 24 hr Temp Pulse Resp BP Pulse Ox 06/01/19 04:00 98.2 F 63 18 137/69 95 05/31/19 23:36 97.7 F 60 16 134/67 93 L 05/31/19 20:40 67 20 95 05/31/19 20:00 98.3 F 76 18 141/72 97 05/31/19 16:00 98.3 F 64 18 138/71 96 05/31/19 12:00 98.2 F 80 18 108/56 94 L 05/31/19 11:18 76 20 99 Pain Assessment - Last Documented Pain Intensity 0 Pain Scale Used 0-10 Pain Scale Intake and Output: Intake & Output 05/29/19 05/30/19 05/31/19 06/01/19 11:59 11:59 11:59 11:59 Intake Total 1686 2408 1789 Balance 1686 9408 1789 Weight 78.3 kg Lab Results: Accuchecks Date 06/01/19 Date 05/31/19 Date 05/31/19 Date 05/31/19 Time 08:00 Time 22:00 Time 17:01 Time 12:08 Accucheck Value: 91 Accucheck Value: 120 Accucheck Value: 126 Accucheck Value: 151 Lab Results-Last 24 Hours 06/01/19 06/01/19 Range/Units 04:40 04:40 WBC 4.2 (4.0-10.5) K/mm3 RBC 3.54 L (4.1-5.6) M/mm3 Hgb 10.8 L (12.5-18.0) gm/dl Hct 32.0 L (42-50) % MCV 90.4 (78-100) fl MCH 30.5 (26-32) pg MCHC 33.8 (32-36) g/dl RDW 13.8 (11.5-14.0) % Plt Count 98 L (150-450) K/mm3 MPV 7.8 (7.5-11.0) fl Sodium 137 (137-145) mmol/L Potassium 3.7 (3.5-5.1) mmol/L Chloride 104 (98-107) mmol/L Carbon Dioxide 27 (22-30) mmol/L Anion Gap 9.5 (5-15) MEQ/L BUN 11 (9-20) mg/dL Creatinine 0.58 L (0.66-1.25) mg/dL Estimated GFR > 60.0 ML/MIN Glucose 91 (74-106) mg/dL Calcium 8.7 (8.4-10.2) mg/dL Slides for Path Review YES Multi-Disciplinary Progress Notes: Multi-Disciplinary Progress Notes 05/31/19 16:16 Physical Therapy Note by Lily Alvarado AM RX - 10:00-10:30 PT. REPORTS HE IS FEELING BETTER TODAY. SPOUSE PRESENT IN ROOM AND PT. UP IN CHAIR. PERFORMED LE ROM EX'S IN CHAIR X 10 REPS. NOTED SOME DECREASED COORDINATION L LE. SIT TO STAND W/ MOD ASSIST X 1 AND V.C TO SCOOT FORWARD IN CHAIR AND PROPER HAND PLACEMENT ON CHAIR VS WALKER FOR SAFETY. AMBULATED 60' W / ROLLER WALKER AND MIN-MOD ASSIST X 1. REQUIRES FREQUENT V.C TO INCREASE SIZE OF KIRSTEN AND TO INCREASE STRIDE LENGTH HE TENDS TO SHUFFLE AT TIMES. O2 SATS ~ 90% ON ROOM AIR AFTER WALKING. PM RX [id number] PT. IN BED AND HAD TAKEN A NAP. PERFORMED SUPINE TO SIT W/ MIN-MOD ASSIST X 1 . SIT TO STAND MOD ASSIST X 1. PT. RECEIVED P.T. IN INPT ROOM AND RODE SEATED STEPPER X 5 MINS. PERFORMED GENERAL LE STRENGTHENING EX'S ON MAT X 10 REPS OF HEEL SLIDES; QUAD/GLUT SETS; ANKLE PUMPS; SLRS; BRIDGING; LTR; SUPINE HIP ABD. ALSO PERFORMED UE DOWEL RODS EX'S W/ ASSIST TO MAINTAIN STATIC SITTING BALANCE HE TENDS TO LOSE BALANCE POSTERIORLY AND OCCASIONALLY LISTS TO THE L W/ HIS TRUNK. AMBULATED ~ 70' W/ ROLLER WALKER AND MIN-MOD ASSIST W/ V.C NOTED ABOVE. O2 SATS 945+ ON ROOM AIR THROUGHOUT PM RX. WILL CONT. PT TO ASSIST W/ RETURN TO PLOF TO RETURN HOME W/ SPOUSE. LILY ALVARADO, PT Initialized on 05/31/19 16:16 - END OF NOTE Assessment/Plan (1) COPD exacerbation Current Visit: Yes Status: Acute Assessment & Plan: Sounds better today with addition of albuterol nebs. On Day #3 of rocephin and zithromax IV. Code(s): J44.1 - CHRONIC OBSTRUCTIVE PULMONARY DISEASE W (ACUTE) EXACERBATION (2) Weakness Current Visit: Yes Status: Acute Assessment & Plan: Will need continued therapy after his acute care stay. Code(s): R53.1 - WEAKNESS (3) Lung cancer Current Visit: Yes Status: Chronic Qualifiers: Laterality: left Lung location: upper lobe of lung Qualified Code(s): C34.12 - Malignant neoplasm of upper lobe, left bronchus or lung Code(s): C34.90 - MALIGNANT NEOPLASM OF UNSP PART OF UNSP BRONCHUS OR LUNG (4) Diabetes mellitus Current Visit: No Status: Chronic Qualifiers: Diabetes mellitus type: type 2 Diabetes mellitus nursing home insulin use: without nursing home use Diabetes mellitus complication status: without complication Qualified Code(s): E11.9 - Type 2 diabetes mellitus without complications Assessment & Plan: BS have been 85-151 Code(s): E11.9 - TYPE 2 DIABETES MELLITUS WITHOUT COMPLICATIONS (5) Hypertension Current Visit: No Status: Chronic Qualifiers: Hypertension type: essential hypertension Qualified Code(s): I10 - Essential (primary) hypertension Assessment & Plan: stable. Code(s): I10 - ESSENTIAL (PRIMARY) HYPERTENSION
[2019-06-01] MEDS: ROCEPHIN 1 Gm-D5w 50 ml Bag** 1 G/50 ML IVPB IV SCH (09:19)
[2019-06-01] MEDS: MAG-OX 400 PO SCH (09:19)
[2019-06-01] MEDS: Coreg 3.125 MG PO SCH ×2 (09:20→22:40)
[2019-06-01] MEDS: Zestril 5 MG PO SCH (09:20)
[2019-06-01] MEDS: HYDROCORTISONE PO SCH (09:20)
[2019-06-01] MEDS: Klor Con 10 MEQ PO SCH (09:20)
[2019-06-01] MEDS: LASIX 20 MG PO SCH (09:20)
[2019-06-01] MEDS: Zithromax 500 MG/ 250 ML NaCl Premix 500 MG/250 ML IVPB IV SCH (09:44)
--- NOTE | 2019-06-01 12:10 | PCM.BN ---
Brief Admission Note - Admission Note Brief Admisson Note: Patient admitted @ 05/30/19 08:34 to MED SURG. Medication List reviewed and reconciled.
[2019-06-01] MEDS: Nitro-Dur 0.4 MG/HR TD SCH (22:40)
[2019-06-01] MEDS: ZOLOFT 50 MG TABLET PO SCH (22:40)
[2019-06-01] MEDS: ZYLOPRIM 100 MG PO SCH (22:40)
[2019-06-02 07:59] VITALS: BP 137/68; PULSE 66; O2SAT 93
--- NOTE | 2019-06-02 08:50 | PCM.DS ---
Discharge Summary Date of Admission: 05/30/19 08:34 Admitting Physician: PERRI UP DO Primary Care Provider: GYPSY MANSFIELD Allergies Allergies No Known Drug Allergies Allergy (Verified 05/29/19 17:01) Hospital Summary - Hospital Course Hospital Course: Pt is a 73 yo male pt of mine from [facility] with lung cancer, DM, HTN, and CAD who was admitted for weakness and found to have COPD exacerbation. His CXR was nonacute. He was started on IV antibiotics and nebulizers (did not require steroids). He has been feeling better but is still weak. Will be discharged to swing bed today for rehab. He has had a mild anemia that is stable throughout his stay. Renal function is wnl. - Vitals & Intake/Output Vital Signs: Vital Signs Temperature 98.0 F 06/02/19 07:58 Pulse Rate 66 06/02/19 07:58 Respiratory Rate 18 06/02/19 07:58 Blood Pressure 137/68 06/02/19 07:58 O2 Sat by Pulse Oximetry 93 L 06/02/19 07:58 Intake & Output: Intake & Output 05/30/19 05/31/19 06/01/19 06/02/19 11:59 11:59 11:59 11:59 Intake Total 1686 8 2028 1000 Balance 1686 8 2028 1000 Weight 78.3 kg 78.3 kg - Lab Result Diagrams: 06/01/19 04:40 06/01/19 04:40 Lab Results-Last 24 Hrs: Accuchecks Date 06/01/19 Date 06/01/19 Date 06/01/19 Time 21:30 Time 16:30 Time 12:17 Accucheck Value: 88 Accucheck Value: 115 Accucheck Value: 114 Accucheck Value: 179 Micro Results-Entire Visit: Accuchecks Date 06/01/19 Date 06/01/19 Date 06/01/19 Time 21:30 Time 16:30 Time 12:17 Accucheck Value: 88 Accucheck Value: 115 Accucheck Value: 114 Accucheck Value: 179 - Procedures and Test Procedures and Tests throughout Hospitalization: Therapy Orders & Screens 05/30/19 09:00 OT Screen per Nursing Assess ONCE Comment: Protocol Order Physician Instructions: Greater than 3 points order OT Admission Screening Reason For Exam: Triggered on Admission Diagnosis: weakness,dehydration, lung cancer Open Wound/Cellutlitis/Pressure Ulcers: Yes Acute Fx/ORIF/Change in wt bearing status: No Severe MUSCULOSKELETAL pain: No ADL Dysfunction: No Acute CVA w/Hemiparesis/Hemiplegia: No Decreased Functional Mobility/Strength: Yes Sprain/Strain: No Acute Post-op Mobility Dysfunction: No Total Points: 6 PT Screen per Nursing Assess ONCE Comment: Protocol Order Physician Instructions: Greater than 3 points order PT Admission Screenin Reason For Exam: Triggered on Admission Diagnosis: weakness,dehydration, lung cancer Open Wound/Cellutlitis/Pressure Ulcers: Yes Acute Fx/ORIF/Change in wt bearing status: No Severe MUSCULOSKELETAL pain: No ADL Dysfunction: No Acute CVA w/Hemiparesis/Hemiplegia: No Decreased Functional Mobility/Strength: Yes Sprain/Strain: No Acute Post-op Mobility Dysfunction: No Total Points: 6 05/30/19 11:13 PT Eval & Treat (MD Order) ROUTINE Reason for Eval:: WEAKNESS, FALLS Diagnosis: weakness,dehydration, lung cancer 05/31/19 11:18 Respiratory Therapy Assessment DAILY Comment: Diagnosis: weakness,dehydration, lung cancer Discharge Exam General Appearance: no apparent distress, alert Neurologic Exam: oriented x 3, cooperative Eye Exam: other (resolving bruise lateral to R eye) Neck Exam: normal inspection Respiratory Exam: normal breath sounds, lungs clear, No crackles/rales, No rhonchi, No wheezing Cardiovascular Exam: regular rate/rhythm, normal heart sounds, No murmur Back Exam: normal inspection, No rash Extremity Exam: No pedal edema, No swelling Skin Exam: normal color, warm, dry, No rash Wound Assessment: Skin/Wound Assessment Wound/Incision Assessment Start: 05/29/19 17: 45 Text: Status: Active Freq: Q6H Protocol: Document 06/02/19 08:00 HANNAH (Rec: 06/02/19 08:33 HANNAH [id number]) Wound/Incision Assessment Left Arm Wound Assessment Shift Assessment Wound Type Skin Tear Wound Stage Non Pressure Wound Dressing Status Dry & Intact Drainage Amount None Primary Dressing TEGADERM Comment MULTIPLE SKIN TEARS NOTED FROM PREVIOUS FALL Left Upper Chest Comment DRAIN NOTED FROM LUNG CANCER, COVERED WITH GAUZE, NO SIGNS OF DRAINAGE NOTED, DRESSING CHANGE EVERY 7 DAYS Final Diagnosis/Problem List - Final Discharge Diagnosis/Problem (1) COPD exacerbation Current Visit: Yes Status: Acute Assessment & Plan: Improved. Will continue IV antibiotics; stop zithromax after day #5. Code(s): J44.1 - CHRONIC OBSTRUCTIVE PULMONARY DISEASE W (ACUTE) EXACERBATION (2) Weakness Current Visit: Yes Status: Acute Assessment & Plan: acute on chronic. PT Code(s): R53.1 - WEAKNESS (3) Lung cancer Current Visit: Yes Status: Chronic Code(s): C34.90 - MALIGNANT NEOPLASM OF UNSP PART OF UNSP BRONCHUS OR LUNG (4) Diabetes mellitus Current Visit: No Status: Chronic Code(s): E11.9 - TYPE 2 DIABETES MELLITUS WITHOUT COMPLICATIONS (5) Hypertension Current Visit: No Status: Chronic Assessment & Plan: stable. Code(s): I10 - ESSENTIAL (PRIMARY) HYPERTENSION - Discharge Disposition: Swing Bed @ [facility] Condition: Stable Prescriptions: No Action Nitroglycerin 0.4 mg/Hr [Nitro-Dur 0.4 MG/HR] 1 patch TOP HS Metformin HCl 500 mg [Glucophage 500 MG] 500 mg PO BID Allopurinol 100 mg [Zyloprim 100 mg] 100 mg PO HS Hydrocortisone 20 mg PO DAILY Sertraline HCl 50 mg [Zoloft 50 mg Tablet] 50 mg PO HS lisinopriL [Lisinopril] 2.5 mg PO DAILY Potassium Chloride 10 Meq Tab* [Klor Con 10 MEQ] 10 meq PO DAILY Magnesium Oxide 400 mg [Mag-Ox 400] 400 mg PO DAILY Furosemide [Lasix] 20 mg PO DAILY Carvedilol [Coreg] 3.125 mg PO BID Follow up with: GYPSY MANSFIELD [Primary Care Provider] - 1 Week
[2019-06-02] MEDS: ROCEPHIN 1 Gm-D5w 50 ml Bag** 1 G/50 ML IVPB IV SCH (09:46)
[2019-06-02] MEDS: LASIX 20 MG PO SCH (09:51)
[2019-06-02] MEDS: MAG-OX 400 PO SCH (09:51)
[2019-06-02] MEDS: Klor Con 10 MEQ PO SCH (09:53)
[2019-06-02] MEDS: Coreg 3.125 MG PO SCH (09:53)
[2019-06-02] MEDS: Zestril 5 MG PO SCH (09:53)
[2019-06-02] MEDS: HYDROCORTISONE PO SCH (09:54)
== END 2019-06-02 10:30 | disposition swing bed (61) | DRG 191 ==
LOC: ED 12:13 → MED SURG 15:58 → OBSVTOIN 05-30 08:34
PROVIDERS: ADMIT Family Medicine; ATTEND Family Medicine
DX: J44.1 Chronic obstructive pulmonary disease with (acute) exacerbation (principal); C34.90 Malignant neoplasm of unspecified part of unspecified bronchus or lung; R53.1 Weakness; E11.9 Type 2 diabetes mellitus without complications; I10 Essential (primary) hypertension; E86.0 Dehydration; I25.10 Atherosclerotic heart disease of native coronary artery without angina pectoris; D69.6 Thrombocytopenia, unspecified; S51.812A Laceration without foreign body of left forearm, initial encounter; R62.7 Adult failure to thrive; Z79.899 Other long term (current) drug therapy; I25.2 Old myocardial infarction
CPT/HCPCS: 36415; 71045; 80048; 80053; 81001; 82962; 83036; 83735; 85025; 85027; 93041; 94760; 97110; 97116; 97162; 97530; 99284; G0378; J0456; J0696; A9270-GY

== ENCOUNTER 2019-06-02 09:50 | Inpatient (IN) | payer MEDICARE, OTHER ==
[2019-06-02] MEDS ORDERED: Aplisol ID ONE (10:41)
[2019-06-02] MEDS ORDERED: PROVENTIL 2.5 MG/3 ML NEB IH PRN (10:41)
[2019-06-02] MEDS: Zithromax 500 MG/ 250 ML NaCl Premix 500 MG/250 ML IVPB IV SCH (11:18)
[2019-06-02] MEDS: Nitro-Dur 0.4 MG/HR TD SCH (21:03)
[2019-06-02] MEDS: ZOLOFT 50 MG TABLET PO SCH (21:03)
[2019-06-02] MEDS: ZYLOPRIM 100 MG PO SCH (21:03)
[2019-06-02] MEDS: Coreg 3.125 MG PO SCH (21:04)
[2019-06-03] MEDS: Zithromax 500 MG/ 250 ML NaCl Premix 500 MG/250 ML IVPB IV SCH (10:30)
[2019-06-03] MEDS: ROCEPHIN 1 Gm-D5w 50 ml Bag** 1 G/50 ML IVPB IV SCH (10:38)
[2019-06-03] MEDS: LASIX 20 MG PO SCH (10:39)
[2019-06-03] MEDS: MAG-OX 400 PO SCH (10:39)
[2019-06-03] MEDS: Zestril 5 MG PO SCH (10:40)
[2019-06-03] MEDS: Klor Con 10 MEQ PO SCH (10:40)
[2019-06-03] MEDS: Coreg 3.125 MG PO SCH ×2 (10:41→21:38)
[2019-06-03] MEDS: HYDROCORTISONE PO SCH (10:41)
[2019-06-03] MEDS: ZYLOPRIM 100 MG PO SCH (21:38)
[2019-06-03] MEDS: ZOLOFT 50 MG TABLET PO SCH (21:38)
[2019-06-03] MEDS: Nitro-Dur 0.4 MG/HR TD SCH (21:38)
[2019-06-04] MEDS: MAG-OX 400 PO SCH (09:18)
[2019-06-04] MEDS: HYDROCORTISONE PO SCH (09:18)
[2019-06-04] MEDS: LASIX 20 MG PO SCH (09:18)
[2019-06-04] MEDS: Zestril 5 MG PO SCH (09:18)
[2019-06-04] MEDS: Klor Con 10 MEQ PO SCH (09:18)
[2019-06-04] MEDS: Coreg 3.125 MG PO SCH ×2 (09:18→20:41)
[2019-06-04] MEDS: ROCEPHIN 1 Gm-D5w 50 ml Bag** 1 G/50 ML IVPB IV SCH (12:46)
[2019-06-04] MEDS: Zithromax 500 MG/ 250 ML NaCl Premix 500 MG/250 ML IVPB IV SCH (12:46)
[2019-06-04] MEDS: ZYLOPRIM 100 MG PO SCH (20:41)
[2019-06-04] MEDS: Nitro-Dur 0.4 MG/HR TD SCH (20:41)
[2019-06-04] MEDS: ZOLOFT 50 MG TABLET PO SCH (20:41)
[2019-06-05] MEDS: Zestril 5 MG PO SCH (10:04)
[2019-06-05] MEDS: Klor Con 10 MEQ PO SCH (10:04)
[2019-06-05] MEDS: MAG-OX 400 PO SCH (10:04)
[2019-06-05] MEDS: LASIX 20 MG PO SCH (10:05)
[2019-06-05] MEDS: Coreg 3.125 MG PO SCH ×2 (10:05→21:59)
[2019-06-05] MEDS: HYDROCORTISONE PO SCH (10:05)
[2019-06-05] MEDS: ZOLOFT 50 MG TABLET PO SCH (21:59)
[2019-06-05] MEDS: ZYLOPRIM 100 MG PO SCH (21:59)
[2019-06-05] MEDS: Nitro-Dur 0.4 MG/HR TD SCH (21:59)
[2019-06-06] MEDS: MAG-OX 400 PO SCH (09:26)
[2019-06-06] MEDS: Zestril 5 MG PO SCH (09:26)
[2019-06-06] MEDS: LASIX 20 MG PO SCH (09:26)
[2019-06-06] MEDS: Coreg 3.125 MG PO SCH ×2 (09:27→20:58)
[2019-06-06] MEDS: HYDROCORTISONE PO SCH (09:27)
[2019-06-06] MEDS: Klor Con 10 MEQ PO SCH (09:27)
[2019-06-06] MEDS: Nitro-Dur 0.4 MG/HR TD SCH (20:57)
[2019-06-06] MEDS: ZOLOFT 50 MG TABLET PO SCH (20:58)
[2019-06-06] MEDS: ZYLOPRIM 100 MG PO SCH (20:58)
[2019-06-07] MEDS: Klor Con 10 MEQ PO SCH (09:17)
[2019-06-07] MEDS: HYDROCORTISONE PO SCH (09:17)
[2019-06-07] MEDS: Coreg 3.125 MG PO SCH ×2 (09:17→21:28)
[2019-06-07] MEDS: LASIX 20 MG PO SCH (09:18)
[2019-06-07] MEDS: MAG-OX 400 PO SCH (09:18)
[2019-06-07] MEDS: Zestril 5 MG PO SCH (09:18)
[2019-06-07] MEDS: ZOLOFT 50 MG TABLET PO SCH (21:28)
[2019-06-07] MEDS: Nitro-Dur 0.4 MG/HR TD SCH (21:28)
[2019-06-07] MEDS: ZYLOPRIM 100 MG PO SCH (21:28)
[2019-06-08] MEDS: Coreg 3.125 MG PO SCH ×2 (08:23→21:03)
--- NOTE | 2019-06-08 08:23 | PCM.NOTE ---
Date and Time: 06/08/19816 Subjective Assessment: Pt without complaints. Feels like therapy is going well. Eating well. - Review of Systems Constitutional: No Fever Abdominal/Gastrointestinal: No Vomiting Objective Exam General Appearance: no apparent distress, alert Neurologic Exam: oriented x 3, cooperative Skin Exam: normal color, warm, dry, No rash Wound Assessment: Skin/Wound Assessment Wound/Incision Assessment Start: 06/06/19 16: 56 Text: Status: Active Freq: Q8H Protocol: Document 06/08/19 04:00 TRAVON (Rec: 06/08/19 04:29 TRAVON [id number]) Wound/Incision Assessment Left Chest Wound Assessment Shift Assessment Wound Type Puncture Wound Stage Non Pressure Wound Drainage Amount None Drainage Odor None/Absent General Appearance Clean/Dry Primary Dressing Absorbant Pad Secondary Dressing Absorbant Pad Comment Dressing clean, dry and intact , site of chest tube removal Right Lower Arm Wound Assessment Shift Assessment Wound Type Skin Tear Wound Stage Non Pressure Wound Dressing Status Dry & Intact Drainage Amount None Primary Dressing tegaderm Left Arm Wound Assessment Shift Assessment Wound Type Skin Tear Wound Stage Non Pressure Wound Dressing Status Dry & Intact Drainage Amount None Surrounding Tissue [place] Primary Dressing TEGADERM Comment . Wound Photo Comment: photos in chart Ears, Nose, Throat Exam: moist mucous membranes Respiratory Exam: normal breath sounds, lungs clear, No crackles/rales, No rhonchi, No wheezing Cardiovascular Exam: regular rate/rhythm, normal heart sounds, No murmur Gastrointestinal/Abdomen Exam: soft, normal bowel sounds Extremity Exam: normal inspection, No pedal edema, No swelling Back Exam: normal inspection, No rash OBJECTIVE DATA Vital Signs: Vital Signs - 24 hr Temp Pulse Resp BP Pulse Ox 06/08/19 07:46 98.3 F 69 18 126/72 99 06/08/19 06:52 96 06/07/19 23:19 98 06/07/19 21:00 97.5 F 65 19 142/70 100 Pain Assessment - Last Documented Pain Intensity 0 Pain Scale Used 0-10 Pain Scale Intake and Output: Intake & Output 06/05/19 06/06/19 06/07/19 06/08/19 11:59 11:59 11:59 11:59 Intake Total 700 720 600 Output Total 300 400 Balance 700 420 200 Weight 76.8 kg Multi-Disciplinary Progress Notes: Multi-Disciplinary Progress Notes 06/07/19 11:44 Physical Therapy Note by Jasper Smith Pt was in bed and agreeable to PT. GRAD[employer] 7 AND 8 VISITING TEACHER helped get pt ready and cleaned up prior to PT. Pt was able to sit on EOB and bed mobility with CGA. Pt demos WNL seated balance at EOB. O2 sat in seated 99%. Pt sit to stand with Petar, VC and RW. Pt is able to amb 150' to PT room where pt completed 10 min on recumbent stepper. Pt performed mat exercises as well. Pt was able to amb 150 back to room with RW and CGA. Pt tolerated session well overall. Pt returned to bed with in room, call light at side and tray nearby. O2 sat remained >95% during entire appt. Initialized on 06/07/19 11:44 - END OF NOTE Assessment/Plan (1) Weakness Current Visit: No Status: Acute Assessment & Plan: here for rehab; I will check in with PT. Code(s): R53.1 - WEAKNESS (2) COPD (chronic obstructive pulmonary disease) Current Visit: Yes Status: Acute Qualifiers: COPD type: chronic bronchitis (3) Diabetes mellitus Current Visit: No Status: Chronic Qualifiers: Diabetes mellitus type: type 2 Diabetes mellitus extrusion manager insulin use: without extrusion manager use Diabetes mellitus complication status: without complication Qualified Code(s): E11.9 - Type 2 diabetes mellitus without complications Code(s): E11.9 - TYPE 2 DIABETES MELLITUS WITHOUT COMPLICATIONS (4) Hypertension Current Visit: No Status: Chronic Qualifiers: Hypertension type: essential hypertension Code(s): I10 - ESSENTIAL (PRIMARY) HYPERTENSION
[2019-06-08] MEDS: MAG-OX 400 PO SCH (08:24)
[2019-06-08] MEDS: Klor Con 10 MEQ PO SCH (08:24)
[2019-06-08] MEDS: LASIX 20 MG PO SCH (08:24)
[2019-06-08] MEDS: Zestril 5 MG PO SCH (08:24)
[2019-06-08] MEDS: HYDROCORTISONE PO SCH (08:24)
--- NOTE | 2019-06-08 09:22 | PCM.DS ---
Discharge Summary Date of Admission: 06/02/19 10:30 Admitting Physician: GYPSY MANSFIELD Primary Care Provider: GYPSY MANSFIELD Allergies Allergies No Known Drug Allergies Allergy (Verified 06/02/19 10:43) Hospital Summary - Hospital Course Hospital Course: Pt is a 73 yo pt of mine from [facility] with lung cancer, CAD, DM, and HTN who was admitted to swing bed for therapy due to muscular deconditioning/weakness after an acute care stay. He has been stable, eating well, afebrile, with BP stable. His therapy is going well and he would like to be discharged to home today. - Vitals & Intake/Output Vital Signs: Vital Signs Temperature 98.3 F 06/08/19 07:46 Pulse Rate 69 06/08/19 07:46 Respiratory Rate 18 06/08/19 07:46 Blood Pressure 126/72 06/08/19 07:46 O2 Sat by Pulse Oximetry 99 06/08/19 07:46 Intake & Output: Intake & Output 06/05/19 06/06/19 06/07/19 06/08/19 11:59 11:59 11:59 11:59 Intake Total 797 699 2834 Output Total 300 650 Balance 700 420 350 Weight 76.8 kg - Procedures and Test Procedures and Tests throughout Hospitalization: Therapy Orders & Screens 06/02/19 10:41 PT Eval & Treat ( Order) ROUTINE Reason for Eval:: WEAKNESS Diagnosis: COPD, LUNG CA, WEAKNESS Respiratory Therapy Assessment DAILY Comment: Diagnosis: weakness,dehydration, lung cancer 06/02/19 13:42 PT Clarification Order ROUTINE Comment: Physician Instructions: Reason For Exam: PT Clarification: PT TO RX 5X/WK UNTIL D/C FOR FUNCTIONAL MOBILITY AND GAIT TRAINING, THER EX, BALANCE AND ENDURANCE ACTIVITIES TO MAXIMIZE FUNCTIONAL INDEPENDENCE FOR SAFE RETURN HOME. 06/03/19 13:01 Oxygen NASAL CANNULA 2 lpm Comment: Diagnosis: COPD, LUNG CA, WEAKNESS Discharge Exam General Appearance: no apparent distress, alert Neurologic Exam: oriented x 3, cooperative Eye Exam: eyes nml inspection Ears, Nose, Throat Exam: moist mucous membranes Respiratory Exam: normal breath sounds, lungs clear, No crackles/rales, No rhonchi, No wheezing Cardiovascular Exam: regular rate/rhythm, normal heart sounds, No murmur Gastrointestinal/Abdomen Exam: soft, normal bowel sounds, No tenderness, No distention, No mass, No guarding, No rebound Back Exam: normal inspection, No rash Extremity Exam: No pedal edema, No swelling Skin Exam: normal color, warm, dry, No rash Wound Assessment: Skin/Wound Assessment Wound/Incision Assessment Start: 06/06/19 16: 56 Text: Status: Active Freq: Q8H Protocol: Document 06/08/19 04:00 TRAVON (Rec: 06/08/19 04:29 TRAVON [id number]) Wound/Incision Assessment Left Chest Wound Assessment Shift Assessment Wound Type Puncture Wound Stage Non Pressure Wound Drainage Amount None Drainage Odor None/Absent General Appearance Clean/Dry Primary Dressing Absorbant Pad Secondary Dressing Absorbant Pad Comment Dressing clean, dry and intact , site of chest tube removal Right Lower Arm Wound Assessment Shift Assessment Wound Type Skin Tear Wound Stage Non Pressure Wound Dressing Status Dry & Intact Drainage Amount None Primary Dressing tegaderm Left Arm Wound Assessment Shift Assessment Wound Type Skin Tear Wound Stage Non Pressure Wound Dressing Status Dry & Intact Drainage Amount None Surrounding Tissue [place] Primary Dressing TEGADERM Comment . Wound Photo Comment: photos in chart Final Diagnosis/Problem List - Final Discharge Diagnosis/Problem (1) Weakness Current Visit: No Status: Acute Assessment & Plan: improved; home today with PT and HHC. Code(s): R53.1 - WEAKNESS (2) COPD (chronic obstructive pulmonary disease) Current Visit: Yes Status: Chronic (3) Diabetes mellitus Current Visit: No Status: Chronic Code(s): E11.9 - TYPE 2 DIABETES MELLITUS WITHOUT COMPLICATIONS (4) Hypertension Current Visit: No Status: Chronic Code(s): I10 - ESSENTIAL (PRIMARY) HYPERTENSION - Discharge Disposition: Home, Self-Care Condition: Stable Prescriptions: Continue Nitroglycerin 0.4 mg/Hr [Nitro-Dur 0.4 MG/HR] 1 patch TOP HS Metformin HCl 500 mg [Glucophage 500 MG] 500 mg PO BID Allopurinol 100 mg [Zyloprim 100 mg] 100 mg PO HS Hydrocortisone 20 mg PO DAILY Sertraline HCl 50 mg [Zoloft 50 mg Tablet] 50 mg PO HS lisinopriL [Lisinopril] 2.5 mg PO DAILY Potassium Chloride 10 Meq Tab* [Klor Con 10 MEQ] 10 meq PO DAILY Magnesium Oxide 400 mg [Mag-Ox 400] 400 mg PO DAILY Furosemide [Lasix] 20 mg PO DAILY Carvedilol [Coreg] 3.125 mg PO BID Follow up with: GYPSY MANSFIELD [Primary Care Provider] - 06/16/19 10:15 am
[2019-06-08] MEDS: Nitro-Dur 0.4 MG/HR TD SCH (21:03)
[2019-06-08] MEDS: ZYLOPRIM 100 MG PO SCH (21:03)
[2019-06-08] MEDS: ZOLOFT 50 MG TABLET PO SCH (21:03)
--- NOTE | 2019-06-09 08:35 | PCM.NOTE ---
Date and Time: 06/09/19832 Subjective Assessment: Pt did not do well in PT yesterday morning so he was not discharged. He is supposed to go receive chemotherapy today, and that usually makes him weaker. He is constanza po well. Cough is better. - Review of Systems Constitutional: No Fever Respiratory: Cough Objective Exam General Appearance: no apparent distress, alert Neurologic Exam: oriented x 3, cooperative Skin Exam: normal color, warm, dry Wound Assessment: Skin/Wound Assessment Wound/Incision Assessment Start: 06/06/19 16: 56 Text: Status: Active Freq: Q8H Protocol: Document 06/09/19 04:00 TRAVON (Rec: 06/09/19 04:13 TRAVON [id number]) Wound/Incision Assessment Left Chest Wound Assessment Shift Assessment Wound Type Puncture Wound Stage Non Pressure Wound Drainage Amount None Drainage Odor None/Absent General Appearance Clean/Dry Primary Dressing Absorbant Pad Secondary Dressing Absorbant Pad Comment Dressing clean, dry and intact . Wound Photo Comment: photos in chart Ears, Nose, Throat Exam: moist mucous membranes Neck Exam: normal inspection Respiratory Exam: diminished breath sounds (good air exchange), wheezing ( scattered), No crackles/rales, No rhonchi Cardiovascular Exam: regular rate/rhythm, normal heart sounds, No murmur Extremity Exam: No pedal edema, No swelling Back Exam: normal inspection, No rash OBJECTIVE DATA Vital Signs: Vital Signs - 24 hr Temp Pulse Resp BP Pulse Ox 06/09/19 07:00 97.8 F 59 L 18 144/68 97 06/09/19 06:36 96 06/08/19 19:28 72 16 91 L 06/08/19 19:00 98.5 F 93 H 18 114/65 95 Pain Assessment - Last Documented Pain Intensity 0 Pain Scale Used 0-10 Pain Scale Intake and Output: Intake & Output 06/06/19 06/07/19 06/08/19 06/09/19 11:59 11:59 11:59 11:59 Intake Total 221 957 4687 480 Output Total 300 650 Balance 700 420 350 480 Weight 76.8 kg Multi-Disciplinary Progress Notes: Multi-Disciplinary Progress Notes 06/08/19 13:40 Physical Therapy Note by Lily Alvarado PT. REPORTS SLEEPING WELL LAST NIGHT AND FEELING GOOD THIS AM. SPOUSE PRESENT AND PT. IN BED UPON P.T. ARRIVAL TO ROOM.. PT. AND SPOUSE EXPRESSED THAT THEY WOULD LIKE TO STAY AT LEAST 1-2 MORE DAYS TO INCREASE STRENGTH AND SEE HOW HE TOLERATES IMMUNOTHERAPY RX TOMORROW. PT. IS PEFORMING SUPINE TO SIT W/ MIN ASSIST; SOME DIFFICULTY NOTED SCOOTING IN BED AND REQUIRES MIN ASSIST AT TIMES TO GET TO EDGE OF BED. SIT TO STAND RANGES FROM SBA TO MOD ASSIST DEPENDING ON HEIGHT OF SURFACE. NEEDS V.C. TO SCOOT TO EDGE OF CHAIR, INCREASE KIRSTEN, PUSH W/ HANDS ON CHAIR AND LEAN FORWARD AT TRUNK TO MAXIAMIZE HIS INDEPENDENCE. RIDES SEATED STEPPER X 8 MINS, AMBULATES 300' W/ ROLLER WALKER AND SBA-MIN ASSIST. WHEN FATIGUED, PT. TENDS TO LET WALKER GET TO FAR AHEAD OF LES AND HIS L LE TENDS TO LAG BEHIND HIS R IN STRIDE LENGTH WHEN TIRED WELL. PT. HAD MORE DIFFICULTY SITTING ON SIDE OF BED TODAY THAN HE HAD OVER THE PAST FEW DAYS. WAS TENDING TO LEAN POSTERIORLY DESPITE VERBAL AND TACTILE CUES TO ADJUST TRUNK POSITION. STRENTGH HAS INCREASED SINCE SOC, BUT STILL SEEMS TO HAVE FLUCTUATIONS IN HIS PERFORMANCE THAT ARE CONCERNING FOR SPOUSE TO HANDLE UPON D/C. DID DISCUSS WHETHER SHE MIGHT WANT TO CONSIDER HHC UPON D/C TO PROVIDE NURSING WELL THERAPY SUPPORT. FOR NOW, SHE REPORTED THAT SHE WANTS TO TRY THINGS ON HER OWN AND DO OP P.T. ADVISED HER THAT SHE CAN DO HHC IF SHE NEEDS MORE SUPPORT LATER. WILL CONT. P.T. 5X/WK BID TOLERATED. LILY ALVARADO, PT Initialized on 06/08/19 13:40 - END OF NOTE 06/08/19 10:03 Case Management Note by Dominga Harrell S/Asael LUGO IN PT - SHE REPORTS AFTER S/W PATIENT THEY WOULD LIKE TO GO AHEAD AND STAY TODAY AND DC IN THE AM BEFORE HIS DOCTOR APPOINTMENT Initialized on 06/08/19 10:03 - END OF NOTE Assessment/Plan (1) Weakness Current Visit: No Status: Chronic Assessment & Plan: I discussed with pt and his , he will have treatment today (although he will wear a mask, use hand unemployment inspector, and will request to see his area cleaned before he starts his tx). Plan to stay until Thursday. Code(s): R53.1 - WEAKNESS (2) COPD (chronic obstructive pulmonary disease) Current Visit: Yes Status: Chronic Qualifiers: COPD type: chronic bronchitis Assessment & Plan: improved cough (3) Diabetes mellitus Current Visit: No Status: Chronic Qualifiers: Diabetes mellitus type: type 2 Diabetes mellitus adjunct faculty for medical terminology insulin use: without adjunct faculty for medical terminology use Diabetes mellitus complication status: without complication Qualified Code(s): E11.9 - Type 2 diabetes mellitus without complications Code(s): E11.9 - TYPE 2 DIABETES MELLITUS WITHOUT COMPLICATIONS (4) Hypertension Current Visit: No Status: Chronic Qualifiers: Hypertension type: essential hypertension Code(s): I10 - ESSENTIAL (PRIMARY) HYPERTENSION
[2019-06-09] MEDS: MAG-OX 400 PO SCH (10:01)
[2019-06-09] MEDS: HYDROCORTISONE PO SCH (10:01)
[2019-06-09] MEDS: Klor Con 10 MEQ PO SCH (10:01)
[2019-06-09] MEDS: LASIX 20 MG PO SCH (10:01)
[2019-06-09] MEDS: Coreg 3.125 MG PO SCH ×2 (10:01→21:34)
[2019-06-09] MEDS: Zestril 5 MG PO SCH (10:01)
[2019-06-09] MEDS: ZYLOPRIM 100 MG PO SCH (21:34)
[2019-06-09] MEDS: Nitro-Dur 0.4 MG/HR TD SCH (21:34)
[2019-06-09] MEDS: ZOLOFT 50 MG TABLET PO SCH (21:34)
[2019-06-10] MEDS: Zestril 5 MG PO SCH (09:58)
[2019-06-10] MEDS: LASIX 20 MG PO SCH (09:58)
[2019-06-10] MEDS: MAG-OX 400 PO SCH (09:58)
[2019-06-10] MEDS: Klor Con 10 MEQ PO SCH (09:58)
[2019-06-10] MEDS: Coreg 3.125 MG PO SCH ×2 (09:59→22:03)
[2019-06-10] MEDS: HYDROCORTISONE PO SCH (10:00)
[2019-06-10] MEDS: Nitro-Dur 0.4 MG/HR TD SCH (22:03)
[2019-06-10] MEDS: ZOLOFT 50 MG TABLET PO SCH (22:03)
[2019-06-10] MEDS: ZYLOPRIM 100 MG PO SCH (22:03)
--- NOTE | 2019-06-11 07:45 | PCM.NOTE ---
Date and Time: 06/11/19 0744 Subjective Assessment: doing ok - Review of Systems Constitutional: No Fever, No Chills Eyes: No Symptoms Ears, Nose, & Throat: No Symptoms Respiratory: No Cough, No Short Of Breath Cardiac: No Chest Pain, No Edema, No Syncope Abdominal/Gastrointestinal: No Abdominal Pain, No Nausea, No Vomiting, No Diarrhea Genitourinary Symptoms: No Dysuria Musculoskeletal: No Back Pain, No Neck Pain Skin: No Rash Neurological: No Dizziness, No Focal Weakness, No Sensory Changes Psychological: No Symptoms Endocrine: No Symptoms Hematologic/Lymphatic: No Symptoms Immunological/Allergic: No Symptoms Objective Exam General Appearance: no apparent distress, alert Neurologic Exam: alert, oriented x 3, cooperative, normal mood/affect, nml cerebellar function, sensation nml, No motor deficits Skin Exam: normal color, warm, dry Wound Assessment: Skin/Wound Assessment Wound/Incision Assessment Start: 06/06/19 16: 56 Text: Status: Active Freq: Q8H Protocol: Document 06/11/19 04:00 KX (Rec: 06/11/19 04:08 KX [id number]) Wound/Incision Assessment Left Chest Wound Assessment Shift Assessment Wound Type chest tube drain removed Dressing Status Dry & Intact Drainage Amount None Drainage Odor None/Absent Left Arm Wound Assessment Shift Assessment Wound Type Skin Tear Dressing Status Dry & Intact Drainage Amount None Wound Photo Photo Taken No Eye Exam: PERRL, EOMI, eyes nml inspection Ears, Nose, Throat Exam: normal ENT inspection, pharynx normal, moist mucous membranes Neck Exam: normal inspection, non-tender, supple, full range of motion Respiratory Exam: normal breath sounds, lungs clear, No respiratory distress Cardiovascular Exam: regular rate/rhythm, normal heart sounds Gastrointestinal/Abdomen Exam: soft, No tenderness, No mass Extremity Exam: normal inspection, normal range of motion Back Exam: normal inspection, normal range of motion, No CVA tenderness, No vertebral tenderness Male Genitalia Exam: deferred Rectal Exam: deferred OBJECTIVE DATA Vital Signs: Vital Signs - 24 hr Temp Pulse Resp BP Pulse Ox 06/10/19 20:37 86 18 94 L 06/10/19 20:00 98.6 F 63 18 133/63 97 Pain Assessment - Last Documented Pain Intensity 0 Pain Scale Used 0-10 Pain Scale Intake and Output: Intake & Output 06/08/19 06/09/19 06/10/19 06/11/19 11:59 11:59 11:59 11:59 Intake Total 1000 480 240 920 Output Total 650 50 550 Balance 350 480 190 370 Weight 75.4 kg Multi-Disciplinary Progress Notes: Multi-Disciplinary Progress Notes 06/10/19 15:30 Nutrition Note by Yasmeen Norman F/u Note: Regular diet con't with 100% po intake. No recent labs. adm weight 77.8 kg; current weight 75.4 kg. goal of consuming >=75% of meals met and ongoing. Will con't to monitor and f/u prn. T.DARIEN Norman Initialized on 06/10/19 15:30 - END OF NOTE 06/10/19 10:34 Case Management Note by Dominga Harrell S/W - SHE STATES THEY ALREADY HAVE AN APPOINTMENT WITH PT FOR OUTPATIENT PHYSICAL THERAPY. SHE DENIES ANY OTHER NEEDS REGARDING DC AT THIS TIME. SHE REPORTS SHE WILL BE ABLE TO CARE FOR PATIENT AND GET PATIENT BACK AND FORTH FOR PHYSICAL THERAPY AND APPOINTMENTS Initialized on 06/10/19 10:34 - END OF NOTE Assessment/Plan (1) COPD (chronic obstructive pulmonary disease) Current Visit: Yes Status: Chronic Qualifiers: COPD type: chronic bronchitis (2) Failure to thrive Current Visit: No Status: Acute Code(s): [id number] - (3) Diabetes mellitus Current Visit: No Status: Chronic Qualifiers: Diabetes mellitus type: type 2 Diabetes mellitus longterm insulin use: without long term care pharmacist use Diabetes mellitus complication status: without complication Qualified Code(s): E11.9 - Type 2 diabetes mellitus without complications Code(s): E11.9 - TYPE 2 DIABETES MELLITUS WITHOUT COMPLICATIONS (4) Weakness Current Visit: No Status: Chronic Code(s): R53.1 - WEAKNESS
[2019-06-11 09:40] VITALS: BP 170/75; O2SAT 99
[2019-06-11 09:42] VITALS: PULSE 71
[2019-06-11] MEDS: MAG-OX 400 PO SCH (10:27)
[2019-06-11] MEDS: LASIX 20 MG PO SCH (10:27)
[2019-06-11] MEDS: Zestril 5 MG PO SCH (10:27)
[2019-06-11] MEDS: Klor Con 10 MEQ PO SCH (10:28)
[2019-06-11] MEDS: HYDROCORTISONE PO SCH (10:29)
[2019-06-11] MEDS: Coreg 3.125 MG PO SCH (10:30)
== END 2019-06-11 13:25 | disposition home or self-care (01) | DRG 948 ==
LOC: MED SURG 10:30
PROVIDERS: ADMIT Family Medicine; ATTEND Family Medicine
DX: R53.1 Weakness (principal); C34.90 Malignant neoplasm of unspecified part of unspecified bronchus or lung; I10 Essential (primary) hypertension; E11.9 Type 2 diabetes mellitus without complications; I25.10 Atherosclerotic heart disease of native coronary artery without angina pectoris; J44.9 Chronic obstructive pulmonary disease, unspecified; R62.7 Adult failure to thrive; D69.6 Thrombocytopenia, unspecified; I25.2 Old myocardial infarction; Z79.899 Other long term (current) drug therapy
CPT/HCPCS: 82962; 94760; J0456; J0696; 97110-GP; A9270-GY

== ENCOUNTER 2019-09-05 07:58 | Inpatient (IN) | payer MEDICARE, OTHER ==
[2019-09-05] MEDS ORDERED: Sodium Chloride 0.9% 1000 ML 1,000 ML IV STA ×3 (08:00→13:07)
[2019-09-05] MEDS ORDERED: Sodium Chloride 0.9% 1000 ML 1,000 ML ONE ×3 (08:04→13:09)
[2019-09-05 08:20] LABS: Hematocrit 39.2 % (42-50); Hemoglobin 13.2 gm/dl (12.5-18.0); Mean Cell Volume 85.8 fl (78-100); Mean Corpuscular Hemoglobin 28.9 pg (26-32); Mean Corpuscular Hgb Concent. 33.7 g/dl (32-36); Platelet Count 168 K/mm3 (150-450); Red Blood Count 4.57 M/mm3 (4.1-5.6); White Blood Count 14.4 K/mm3 (4.0-10.5)
[2019-09-05 08:27] LABS: ALKALINE PHOSPHATASE 62 U/L (38-126); ANION GAP 16.4 MEQ/L (5-15); BLOOD UREA NITROGEN 27 mg/dL (9-20); CHLORIDE 99 mmol/L (98-107); Calcium 9.7 mg/dL (8.4-10.2); Carbon Dioxide 25 mmol/L (22-30); Creatinine 1 0.95 mg/dL (0.66-1.25); Glucose 102 mg/dL (74-106); Potassium 4.5 mmol/L (3.5-5.1); SGOT/AST 19 U/L (17-59); SGPT/ALT 9 U/L (0-50); SODIUM 136 mmol/L (137-145)
--- NOTE | 2019-09-05 08:39 | XRAY ---
Indication: Change mental status. Multiple contiguous axial images obtained through the head without contrast. Comparison: None Age-appropriate global atrophy and moderate periventricular degenerative micro-ischemia. Right parietal convexity demonstrates 2 foci of rounded hypodensities, larger anteriorly measuring 2.1 cm and smaller posteriorly measuring 1.8 cm without mass effect. No acute intracranial hemorrhage, hydrocephalus, or midline shifting. Fourth ventricle is midline. Bony calvarium intact. Visualized paranasal sinuses and mastoid air cells are clear. Impression: 1. Right parietal indeterminant hypodensities as detailed. MRI brain with contrast exam may yield further information. 2. Aging brain including atrophy and degenerative micro-ischemia.
--- NOTE | 2019-09-05 08:41 | XRAY ---
Indication: Confusion. History lung cancer. Comparison: None Portable chest demonstrates large left suprahilar masslike opacity with left lung volume loss presumed known malignancy. Right lung clear. Heart is not enlarged with right Port-A-Cath. Bony thorax intact with osteopenia and degenerative changes. Impression: 1. Large left suprahilar masslike opacity with lung volume loss presumed known malignancy. Outside comparison studies recommended if available. 2. Negative for acute pneumonic process or CHF.
--- NOTE | 2019-09-05 08:50 | ERPHSYRPT ---
- History of Present Illness Time Seen by Provider: 09/05/19 08:02 Source: patient, other () Exam Limitations: other (Pt poor historian) Patient Subjective Stated Complaint: Pt is able to answer all questions appropriately. Pt is alert and oriented x 3. Resting calmly and states "I know where I'm at, I'm at the emergency room. There is my ." This is all accurate. Triage Nursing Assessment: Pt was brought in by ambulance for generalized weakness, fatigue, slightly confused. states he has been more confused the past couple of days. Pt is alert and oriented x 3 upon arrival to ER. Pt's answers questions appropriate. Pt is a CA patient and last chemo was one month ago. Pt skin is pale and cool to touch. Slight nonproductive cough noted. Pt oral mucosa very dry. Pt has been immobile x 1 month. states was getting home rehab 4x a week but needed a break. Hoping to get him back in rehab soon. Pt appears weak and dehydrated. Abd soft and nontender. Denies nausea, vomiting , or diarrhea. Denies dizziness or blurred vision. states he did vomit twice yesterday. Physician History: 74 yo wm w 3.5 yr h/o lung ca presents w confusion x2wks. Pt denies focal weakness/chest pain/dyspnea/N/V/D/fever/ALDRIDGE. states that pt has been having chest pain intermittantly over the last couple of days/dyspnea/confusion x2wks/N /V/constipation/chronic cough wo dysuria/hematuria/fever/melena. Timing/Duration: other (2wks) Severity: mild Character of Deficits: general (difuse) (lethargy/confusion) Deficits: no difficulties Baseline/Normal Cognition: alert oriented x 3 Associated Symptoms: confusion, weakness, No nausea, No vomiting Allergies/Adverse Reactions: No Known Drug Allergies Allergy (Verified 09/05/19 09:35) Home Medications: Allopurinol 100 mg [Zyloprim 100 mg] 100 mg PO HS 04/16/15 [History] Metformin HCl 500 mg [Glucophage 500 MG] 500 mg PO BID 04/16/15 [History] Nitroglycerin 0.4 mg/Hr [Nitro-Dur 0.4 MG/HR] 1 patch TOP HS 04/16/15 [ History] Hydrocortisone 20 mg PO DAILY 11/26/18 [History] Sertraline HCl 50 mg [Zoloft 50 mg Tablet] 50 mg PO HS 11/26/18 [History] Carvedilol [Coreg] 3.125 mg PO BID 05/29/19 [History] Furosemide [Lasix] 20 mg PO DAILY 05/29/19 [History] Magnesium Oxide 400 mg [Mag-Ox 400] 400 mg PO DAILY 05/29/19 [History] Potassium Chloride 10 Meq Tab* [Klor Con 10 MEQ] 10 meq PO DAILY 05/29/19 [ History] lisinopriL [Lisinopril] 2.5 mg PO DAILY 05/29/19 [History] Carvedilol 3.125 mg [Coreg 3.125 MG] 3.125 mg PO BID 09/05/19 [History] Hydrocortisone 20 mg PO DAILY 09/05/19 [History] Magnesium Oxide 400 mg [Mag-Ox 400] 400 mg PO DAILY 09/05/19 [History] Metformin HCl 500 mg PO BID 09/05/19 [History] Nitroglycerin 0.4 mg/Hr [Nitro-Dur 0.4 MG/HR] 1 patch TOP 09/05/19 [ History] Potassium Chloride 10 Meq Tab* [Klor Con 10 MEQ] 10 meq PO DAILY 09/05/19 [ History] Sertraline HCl 50 mg PO DAILY 09/05/19 [History] allopurinoL [Allopurinol] 100 mg PO DAILY 09/05/19 [History] dronabinoL [Marinol] 2.5 mg PO BID 09/05/19 [History] lisinopriL [Zestril] 2.5 mg PO DAILY 09/05/19 [History] Hx Tetanus, Diphtheria Vaccination/Date Given: Yes Hx Influenza Vaccination/Date Given: Yes Hx Pneumococcal Vaccination/Date Given: Yes Immunizations Up to Date: Yes Travel Risk - International Travel Have you traveled outside of the country in past 3 weeks: No Have you or anyone close to you been diagnosed with or: No Do your reside in a community with a known COVID-19 case?: Yes If Yes where:: [facility] - Coronavirus Screening Has patient experienced Coronavirus symptoms: Yes Symptoms experienced: respiratory symptoms (i.e.Cought,shortness of breath), weakness - Review of Systems Constitutional: Fatigue, Lethargy, Weakness Eyes: No Symptoms Ears, Nose, & Throat: No Symptoms Respiratory: Cough, Dyspnea Cardiac: Chest Pain Abdominal/Gastrointestinal: Nausea, Vomiting, Constipation, No Diarrhea Genitourinary Symptoms: No Symptoms Musculoskeletal: No Symptoms Skin: No Symptoms Neurological: No Focal Weakness Psychological: No Symptoms Endocrine: No Symptoms Hematologic/Lymphatic: No Symptoms Immunological/Allergic: No Symptoms - Past Medical History Pertinent Past Medical History: Yes Neurological History: Other (Brain mets) Cardiac History: No Pertinent History, Congestive Heart Failure Respiratory History: Lung Cancer - Past Surgical History Past Surgical History: Yes Other Surgical History: PORT PLACED - Social History Smoking Status: Former smoker Exposure to second hand smoke: No Drug Use: none Patient Lives Alone: No Significant Family History: no pertinent family hx - Nursing Vital Signs Nursing Vital Signs: Initial Vital Signs Temperature 98.1 F 09/05/19 08:00 Pulse Rate 90 09/05/19 08:00 Respiratory Rate 16 09/05/19 08:00 Blood Pressure 92/64 09/05/19 08:00 O2 Sat by Pulse Oximetry 97 09/05/19 08:00 Pain Scale Pain Intensity 0 - [place] Coma Scale Best Eye Response (Sha): (4) open spontaneously Best Verbal Response (Sha): (5) oriented Best Motor Response ([place]): (6) obeys commands [place] Total: 15 - Physical Exam General Appearance: no apparent distress Eye Exam: bilateral eye: normal inspection, PERRL, EOMI Ears, Nose, Throat Exam: TMs normal, other (Dry mucus membranes) Neck Exam: normal inspection, non-tender, supple, full range of motion Respiratory: normal breath sounds, lungs clear, No respiratory distress Cardiovascular: regular rate/rhythm, normal heart sounds, normal peripheral pulses, No murmur Gastrointestinal: soft, normal bowel sounds, No tenderness, No distention Back Exam: normal inspection, normal range of motion Extremity Exam: normal inspection, normal range of motion 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 Tapia who relayed through nurse, nothing acute) - Radiology Exams Chest X-ray Interpretation: Discussed w/ radiologist (Large L supra-hilar mass) - CT Exams Head CT Interpretation: Discussed w/radiologist (R parietal hypodensities) Chest CT Interpretation: Discussed w/radiologist (LLL Infiltrate/Mod pericardial effusion) Ordered Tests: Active Orders 24 hr Category Date Time Status Bedrest ROUTINE Activity 09/05/19 15:00 Ordered Code Status Order ROUTINE Care 09/05/19 14:59 Ordered EKG-ER Only STAT Care 09/05/19 08:03 Active Cornelius [Catheter-[place] Cornelius] STAT Care 09/05/19 11:19 Active IV Care Q6H Care 09/05/19 14:[address] in Observation ROUTINE Care 09/05/19 14:59 Ordered Vital Signs Q4H Care 09/05/19 14:58 Ordered Heart-Healthy Diet Diet 09/05/19 Dinner Ordered CHEST 1 VIEW (PORTABLE) Stat Exams 09/05/19 08:07 Completed CHEST WITHOUT CONTRAST [CT] Stat Exams 09/05/19 13:07 Completed HEAD WITHOUT CONTRAST [CT] Stat Exams 09/05/19 08:03 Completed MRI BRAIN WITH CONTRAST [MRI] Stat Exams 09/05/19 09:36 Completed BLOOD CULTURE Stat Lab 09/05/19 Ordered CBC W DIFF AM.LAB Lab 09/06/19 04:00 Ordered CBC W DIFF Stat Lab 09/05/19 08:07 Completed CMP AM.LAB Lab 09/06/19 04:00 Ordered CMP Stat Lab 09/05/19 08:07 Completed Lactic Acid AM.LAB Lab 09/06/19 04:00 Ordered Lactic Acid Stat Lab 09/05/19 08:13 Completed Manual Differential NC Stat Lab 09/05/19 08:07 Completed TROPONIN Q3H Lab 09/05/19 08:07 Completed TROPONIN Q3H Lab 09/05/19 11:00 Completed TROPONIN Q3H Lab 09/05/19 14:25 Received TROPONIN Q3H Lab 09/05/19 17:15 Ordered TROPONIN Q3H Lab 09/05/19 20:15 Ordered UA W/RFX UR CULTURE Stat Lab 09/05/19 11:18 Completed Transfer Order Routine Transfer 09/05/19 Ordered Medication Summary Generic Name Dose Route Start Last Admin Trade Name Lorin PRN Reason Stop Dose Admin Ceftriaxone Sodium/Dextrose 1 g in 50 mls @ 100 mls/hr 09/05/19 14:58 Rocephin 1 Gm-D5w 50 Ml Bag IV 09/05/19 15:27 STAT STA Discontinued Medications Generic Name Dose Route Start Last Admin Trade Name Lorin PRN Reason Stop Dose Admin Dexamethasone Sodium Phosphate 10 mg 09/05/19 12:59 09/05/19 13:05 Decadron 10mg Inj. IV 09/05/19 13:00 10 mg STAT ONE Administration Dexamethasone Sodium Phosphate Confirm 09/05/19 13:03 Decadron 10mg Inj. Administered 09/05/19 13:04 Dose 10 mg .ROUTE .STK-MED ONE Sodium Chloride Confirm 09/05/19 08:04 Sodium Chloride 0.9% 1000 Ml Administered 09/05/19 08:05 Dose 1,000 mls @ ud .ROUTE .STK-MED ONE Sodium Chloride 1,000 mls @ 999 mls/hr 09/05/19 09:43 09/05/19 11:03 Sodium Chloride 0.9% 1000 Ml IV 09/05/19 10:43 Infused .Q1H1M STA Infusion Sodium Chloride Confirm 09/05/19 09:44 Sodium Chloride 0.9% 1000 Ml Administered 09/05/19 09:45 Dose 1,000 mls @ ud .ROUTE .STK-MED ONE Sodium Chloride 1,000 mls @ 999 mls/hr 09/05/19 08:00 09/05/19 09:51 Sodium Chloride 0.9% 1000 Ml IV 09/05/19 09:00 Infused .Q1H1M STA Infusion Sodium Chloride 1,000 mls @ 999 mls/hr 09/05/19 13:07 09/05/19 13:12 Sodium Chloride 0.9% 1000 Ml IV 09/05/19 14:07 999 mls/hr .Q1H1M STA Administration Sodium Chloride Confirm 09/05/19 13:09 Sodium Chloride 0.9% 1000 Ml Administered 09/05/19 13:10 Dose 1,000 mls @ ud .ROUTE .STK-MED ONE Ceftriaxone Sodium/Dextrose Confirm 09/05/19 15:01 Rocephin 1 Gm-D5w 50 Ml Bag Administered 09/05/19 15:02 Dose 1 g in 50 mls @ ud IV .STK-MED ONE Lab/Rad Data: Laboratory Result Diagrams 09/05/19 08:07 09/05/19 08:07 Laboratory Results 09/05/19 09/05/19 09/05/19 Range/Units 14:25 11:18 11:00 WBC (4.0-10.5) K/mm3 RBC (4.1-5.6) M/mm3 Hgb (12.5-18.0) gm/dl Hct (42-50) % MCV (78-100) fl MCH (26-32) pg MCHC (32-36) g/dl RDW (11.5-14.0) % Plt Count (150-450) K/mm3 MPV (7.5-11.0) fl Segmented Neutrophils (36.-66.) % Band Neutrophils (0.0-2.0) % Lymphocytes (Manual) (24-44) % Monocytes (Manual) (0.0-12.0) % Eosinophils (Manual) (0.00-3.0) % Platelet Estimate (NORMAL) RBC Morphology Sodium (137-145) mmol/L Potassium (3.5-5.1) mmol/L Chloride (98-107) mmol/L Carbon Dioxide (22-30) mmol/L Anion Gap (5-15) MEQ/L BUN (9-20) mg/dL Creatinine (0.66-1.25) mg/dL Estimated GFR ML/MIN Glucose (74-106) mg/dL Lactic Acid (0.4-2.0) Calcium (8.4-10.2) mg/dL Total Bilirubin (0.2-1.3) mg/dL AST (17-59) U/L ALT (0-50) U/L Alkaline Phosphatase (38-126) U/L Troponin I < 0.012 < 0.012 (0.000-0.034) ng/mL Serum Total Protein (6.3-8.2) g/dL Albumin (3.5-5.0) g/dL Urine Color YELLOW (YELLOW) Urine Appearance SLIGHTLY CLOUDY (CLEAR) Urine pH 5.0 (5-6) Ur Specific [place] 1.025 (1.005-1.025) Urine Protein NEGATIVE (Negative) Urine Ketones TRACE (NEGATIVE) Urine Blood MODERATE (0-5) Marcelo/ul Urine Nitrite NEGATIVE (NEGATIVE) Urine Bilirubin NEGATIVE (NEGATIVE) Urine Urobilinogen NEGATIVE (0-1) mg/dL Ur Leukocyte Esterase NEGATIVE (NEGATIVE) Urine WBC (Auto) 0-2 (0-5) /HPF Urine RBC (Auto) 6-10 (0-2) /HPF U Epithel Cells (Auto) NONE (FEW) /HPF Urine Bacteria (Auto) NONE (NEGATIVE) /HPF Urine Mucus (Auto) SLIGHT (NEGATIVE) /HPF Urine Culture Reflexed NO (NO) Urine Glucose NEGATIVE (NEGATIVE) mg/dL 09/05/19 09/05/19 09/05/19 Range/Units 08:13 08:07 08:07 WBC (4.0-10.5) K/mm3 RBC (4.1-5.6) M/mm3 Hgb (12.5-18.0) gm/dl Hct (42-50) % MCV (78-100) fl MCH (26-32) pg MCHC (32-36) g/dl RDW (11.5-14.0) % Plt Count (150-450) K/mm3 MPV (7.5-11.0) fl Segmented Neutrophils (36.-66.) % Band Neutrophils (0.0-2.0) % Lymphocytes (Manual) (24-44) % Monocytes (Manual) (0.0-12.0) % Eosinophils (Manual) (0.00-3.0) % Platelet Estimate (NORMAL) RBC Morphology Sodium 136 L (137-145) mmol/L Potassium 4.5 (3.5-5.1) mmol/L Chloride 99 (98-107) mmol/L Carbon Dioxide 25 (22-30) mmol/L Anion Gap 16.4 H (5-15) MEQ/L BUN 27 H (9-20) mg/dL Creatinine 0.95 (0.66-1.25) mg/dL Estimated GFR > 60.0 ML/MIN Glucose 102 (74-106) mg/dL Lactic Acid 1.4 (0.4-2.0) Calcium 9.7 (8.4-10.2) mg/dL Total Bilirubin 0.90 (0.2-1.3) mg/dL AST 19 (17-59) U/L ALT 9 (0-50) U/L Alkaline Phosphatase 62 (38-126) U/L Troponin I < 0.012 (0.000-0.034) ng/mL Serum Total Protein 8.0 (6.3-8.2) g/dL Albumin 4.0 (3.5-5.0) g/dL Urine Color (YELLOW) Urine Appearance (CLEAR) Urine pH (5-6) Ur Specific [place] (1.005-1.025) Urine Protein (Negative) Urine Ketones (NEGATIVE) Urine Blood (0-5) Marcelo/ul Urine Nitrite (NEGATIVE) Urine Bilirubin (NEGATIVE) Urine Urobilinogen (0-1) mg/dL Ur Leukocyte Esterase (NEGATIVE) Urine WBC (Auto) (0-5) /HPF Urine RBC (Auto) (0-2) /HPF U Epithel Cells (Auto) (FEW) /HPF Urine Bacteria (Auto) (NEGATIVE) /HPF Urine Mucus (Auto) (NEGATIVE) /HPF Urine Culture Reflexed (NO) Urine Glucose (NEGATIVE) mg/dL 09/05/19 Range/Units 08:07 WBC 14.4 H (4.0-10.5) K/mm3 RBC 4.57 (4.1-5.6) M/mm3 Hgb 13.2 (12.5-18.0) gm/dl Hct 39.2 L (42-50) % MCV 85.8 (78-100) fl MCH 28.9 (26-32) pg MCHC 33.7 (32-36) g/dl RDW 14.0 (11.5-14.0) % Plt Count 168 (150-450) K/mm3 MPV 8.0 (7.5-11.0) fl Segmented Neutrophils 86 H (36.-66.) % Band Neutrophils 3 H (0.0-2.0) % Lymphocytes (Manual) 8 L (24-44) % Monocytes (Manual) 2 (0.0-12.0) % Eosinophils (Manual) 1 (0.00-3.0) % Platelet Estimate NORMAL (NORMAL) RBC Morphology NORMAL Sodium (137-145) mmol/L Potassium (3.5-5.1) mmol/L Chloride (98-107) mmol/L Carbon Dioxide (22-30) mmol/L Anion Gap (5-15) MEQ/L BUN (9-20) mg/dL Creatinine (0.66-1.25) mg/dL Estimated GFR ML/MIN Glucose (74-106) mg/dL Lactic Acid (0.4-2.0) Calcium (8.4-10.2) mg/dL Total Bilirubin (0.2-1.3) mg/dL AST (17-59) U/L ALT (0-50) U/L Alkaline Phosphatase (38-126) U/L Troponin I (0.000-0.034) ng/mL Serum Total Protein (6.3-8.2) g/dL Albumin (3.5-5.0) g/dL Urine Color (YELLOW) Urine Appearance (CLEAR) Urine pH (5-6) Ur Specific [place] (1.005-1.025) Urine Protein (Negative) Urine Ketones (NEGATIVE) Urine Blood (0-5) Marcelo/ul Urine Nitrite (NEGATIVE) Urine Bilirubin (NEGATIVE) Urine Urobilinogen (0-1) mg/dL Ur Leukocyte Esterase (NEGATIVE) Urine WBC (Auto) (0-5) /HPF Urine RBC (Auto) (0-2) /HPF U Epithel Cells (Auto) (FEW) /HPF Urine Bacteria (Auto) (NEGATIVE) /HPF Urine Mucus (Auto) (NEGATIVE) /HPF Urine Culture Reflexed (NO) Urine Glucose (NEGATIVE) mg/dL - Progress Progress: improved Progress Note: 09/05/19 14:29 Spoke w pt's Rad Onc physician(Dr. Morocho) after MRI, stated that mets were most likely old. Dr. Ascencio actually was able to obtain old MRI of brain and conf 09/05/19 15:[address] Floyd Pt given 3L NS bolus for borderline hypertension/Blood cultures x2/1gm IV rocephin Counseled pt/family regarding: lab results, diagnosis, rad results - Departure Departure Disposition: Observation Clinical Impression: Pneumonia, Lung cancer, Pericardial effusion, Brain metastases Condition: Stable Critical Care Time: No Referrals: GYPSY MANSFIELD [Primary Care Provider] -
[2019-09-05 09:36] LABS: BAND 3 % (0.0-2.0); Eosinophil 1 % (0.00-3.0); Lymphocytes 8 % (24-44); Monocyte 2 % (0.0-12.0); Neutrophils 86 % (36.-66.); Total Cells Counted 100
[2019-09-05 09:38] LABS: Platelet Estimate NORMAL (NORMAL)
[2019-09-05 11:36] LABS: Appearance SLIGHTLY CLOUDY (CLEAR); Bilirubin NEGATIVE (NEGATIVE); Blood MODERATE Ery/ul (0-5); Glucose NEGATIVE (NEGATIVE); Ketones TRACE (NEGATIVE); Leukocyte Esterase NEGATIVE (NEGATIVE); Mucus SLIGHT /HPF (NEGATIVE); Nitrite NEGATIVE (NEGATIVE); Protein,Urine Dip NEGATIVE (Negative); Specific Gravity 1.025 (1.005-1.025); Urobilinogen NEGATIVE mg/dL (0-1); WBC 0-2 /HPF (0-5)
[2019-09-05] MEDS ORDERED: DECADRON 10MG INJ. IV ONE (12:59)
--- NOTE | 2019-09-05 12:59 | XRAY ---
Indication: Altered mental status. Change in gait. Abnormal CT head earlier in the day. History lung cancer. Sagittal, coronal, and axial MRI brain was performed using pre-and post T1, T2, FLAIR, diffusion, and ADC sequences. 15 cc Dotarem contrast use. Comparison: None Age-appropriate global atrophy and moderate/advanced periventricular degenerative micro-ischemia signal bilaterally. Tiny bilateral basal ganglia remote lacunar infarcts. Right parietal lobe demonstrates 2 peripheral enhancing lesions corresponding to the same day CT head abnormality. The anterior lesion measures 2.0 x 1.1 x 1.9 cm and the posterior lesion measures 1.6 x 1.5 x 1.8 cm. Right frontal lobe near the vertex demonstrates a small 1.0 x 0.8 x 1.1 cm lesion with minimal enhancement. All 3 findings are favored to be metastatic in this patient with history of lung cancer. No acute intracranial hemorrhage, abnormal extra-axial fluid collection, or mass effect. Diffusion images negative for restricted signal. Fourth ventricle is midline without hydrocephalus. 7/8 cranial nerve complex bilaterally symmetric. Normal flow-void signal within the major intracerebral circulation. Normal appearing craniocervical junction and sella turcica. Paranasal sinuses are clear. There is flow signal in both mastoid air cells presumed inflammatory. Impression: 1. Right frontal and right parietal lesions as detailed worrisome for metastasis in this patient with history of lung cancer. No mass effect or acute hemorrhage. 2. Aging brain including atrophy and degenerative micro-ischemia. Tiny bilateral basal ganglia lacunar infarcts.
[2019-09-05] MEDS ORDERED: DECADRON 10MG INJ. ONE (13:03)
--- NOTE | 2019-09-05 14:19 | XRAY ---
Indication: Cough 1 month. History lung cancer. Multiple contiguous axial images obtained through the chest without contrast as ordered. Comparison: CT chest with contrast exam from [facility] dated May 11, 2019. Stable left hilar/suprahilar pleural-parenchymal masslike opacity again presumed known malignancy. Also stable bilateral perihilar opacities probably postradiation changes. Left lower lung demonstrates new patchy alveolar opacities probably pneumonitis with also increasing small effusion. Stable scattered bilateral subsegmental atelectasis/scarring and a few bilateral calcified granulomas. Stable 5 mm right upper lobe (image 13), 4 mm right upper lobe ( image 19), and 6 mm right lower lobe (image 29) noncalcified nodules. Heart is now borderline enlarged with new moderate pericardial effusion. Stable right Port-A-Cath. Aorta remains mildly arteriosclerotic without aneurysmal dilatation. Stable small left perihilar calcified nodes and small hiatal hernia. Bony thorax again demonstrates osteopenia and mild degenerative changes throughout the spine. Limited upper abdomen demonstrates grossly stable large bilateral adrenal gland masses probably metastatic. Enlarging aortocaval adenopathy today measuring 2.6 x 3.7 cm, previously 2.5 x 2.5 cm. Impression: 1. New left lower lobe patchy pneumonitis with increasing effusion. 2. New moderate pericardial effusion. Echocardiogram may yield further information. 3. Upper abdomen demonstrates increasing aortocaval adenopathy. 4. Stable left hilar/suprahilar pleural-parenchymal masslike opacity presumed known malignancy. Stable right lung indeterminant noncalcified nodules. 5. Stable bilateral hilar opacities presumed postradiation changes. 6. Stable large bilateral adrenal masses probably metastatic. 7. Stable incidental small hiatal hernia.
[2019-09-05] MEDS ORDERED: ROCEPHIN 1 Gm-D5w 50 ml Bag** 1 G/50 ML IVPB IV STA (14:58)
[2019-09-05] MEDS ORDERED: Sodium Chloride 0.9% 1000 ML 1,000 ML IV SCH (15:00)
[2019-09-05] MEDS ORDERED: ROCEPHIN 1 Gm-D5w 50 ml Bag** 1 G/50 ML IVPB IV ONE (15:01)
--- NOTE | 2019-09-05 15:57 | PCM.HP ---
History of Present Illness - Chief Complaint Chief Complaint: pneumonia History of Present Illness: is a 74 year old male with known lung cancer who presented to the ER today with increasing weakness, confusion and difficulty walking. He has had a productive cough that is much worse in the last few days. He had a chemo treatment last month and was due for one in the last week but was too weak to go fot it. There has been no fever, he denies chest pain, no syncope, no seizures. - Review of Systems Constitutional: Weakness, No Fever, No Chills Respiratory: Cough Cardiac: No Chest Pain, No Edema, No Syncope Abdominal/Gastrointestinal: No Abdominal Pain, No Nausea, No Vomiting, No Diarrhea Neurological: No Focal Weakness All Other Systems: Reviewed and Negative Medications & Allergies Home Medications: Home Medication List lisinopriL [Lisinopril] 2.5 mg PO DAILY 05/29/19 [History Confirmed 06/02/19] Carvedilol 3.125 mg [Coreg 3.125 MG] 3.125 mg PO BID 09/05/19 [History Confirmed 09/05/19] Hydrocortisone 20 mg PO DAILY 09/05/19 [History Confirmed 09/05/19] Magnesium Oxide 400 mg [Mag-Ox 400] 400 mg PO DAILY 09/05/19 [History Confirmed 09/05/19] Metformin HCl 500 mg PO BID 09/05/19 [History Confirmed 09/05/19] Nitroglycerin 0.4 mg/Hr [Nitro-Dur 0.4 MG/HR] 1 patch TOP HS 09/05/19 [ History Confirmed 09/05/19] Potassium Chloride 10 Meq Tab* [Klor Con 10 MEQ] 10 meq PO DAILY 09/05/19 [ History Confirmed 09/05/19] Sertraline HCl 50 mg PO DAILY 09/05/19 [History Confirmed 09/05/19] allopurinoL [Allopurinol] 100 mg PO DAILY 09/05/19 [History Confirmed 09/05/19] lisinopriL [Zestril] 2.5 mg PO DAILY 09/05/19 [History Confirmed 09/05/19] Allergies/Adverse Reactions: Allergies Allergy/AdvReac Type Severity Reaction Status Date / Time No Known Drug Allergies Allergy Verified 09/05/19 09:35 - Past Medical History Past Medical History: Yes Neurological History: Other (Brain mets) ENT History: No Pertinent History Cardiac History: No Pertinent History, Congestive Heart Failure Respiratory History: Lung Cancer Endocrine Medical History: Diabetes Type II Musculoskelatal History: No Pertinent History GI Medical History: Polyps History: No Pertinent History Pyscho-Social History: No Pertinent History Male Reproductive Disorders: No Pertinent History Comment: PT. RECEIVED IMMUNOTHERAPY RXS REGULARLY WHICH LEAD TO DECREASED ENERGY AND INCREASED WEAKNESS. - Past Surgical History Past Surgical History: Yes Neuro Surgical History: No Pertinent History Cardiac History: Cardiac Stent, Cardiac Catheterization Respiratory Surgery: No Pertinent History GI Surgical History: Other Genitourinary Surgical Hx: No Pertinent History Musculskeletal Surgical Hx: No Pertinent History Male Surgical History: Vasectomy Other Surgical History: PORT PLACED - Social History Smoking Status: Former smoker How long have you smoked: 30 years Exposure to second hand smoke: No Alcohol: None Drug Use: none Significant Family History: no pertinent family hx - Physical Exam Vital Signs: Vital Signs - 24 hr Temp Pulse Resp BP Pulse Ox 09/05/19 15:06 97 09/05/19 15:06 76 16 98/62 95 09/05/19 12:46 80 16 98/60 94 L 09/05/19 11:34 78 20 90/63 94 L 09/05/19 11:06 80 23 102/68 96 09/05/19 10:30 77 18 86/57 97 09/05/19 10:22 75 20 100/62 97 09/05/19 10:15 77 100/62 09/05/19 09:30 78 20 91/63 95 09/05/19 09:10 78 20 85/59 96 09/05/19 08:00 98.1 F 90 16 92/64 97 General Appearance: other (weak and frail appearance) Neurologic Exam: alert, cooperative Respiratory Exam: rhonchi (left lung base) Cardiovascular Exam: regular rate/rhythm, normal heart sounds, normal peripheral pulses Gastrointestinal/Abdomen Exam: soft, normal bowel sounds, No tenderness, No mass Extremity Exam: normal inspection, normal range of motion, pelvis stable Skin Exam: normal color, warm, dry, No rash Results - Labs Lab/Micro Results: Lab Results-Last 24 Hours 09/05/19 09/05/19 09/05/19 Range/Units 08:07 08:07 08:07 WBC 14.4 H (4.0-10.5) K/mm3 RBC 4.57 (4.1-5.6) M/mm3 Hgb 13.2 (12.5-18.0) gm/dl Hct 39.2 L (42-50) % MCV 85.8 (78-100) fl MCH 28.9 (26-32) pg MCHC 33.7 (32-36) g/dl RDW 14.0 (11.5-14.0) % Plt Count 168 (150-450) K/mm3 MPV 8.0 (7.5-11.0) fl Segmented Neutrophils 86 H (36.-66.) % Band Neutrophils 3 H (0.0-2.0) % Lymphocytes (Manual) 8 L (24-44) % Monocytes (Manual) 2 (0.0-12.0) % Eosinophils (Manual) 1 (0.00-3.0) % Platelet Estimate NORMAL (NORMAL) RBC Morphology NORMAL Sodium 136 L (137-145) mmol/L Potassium 4.5 (3.5-5.1) mmol/L Chloride 99 (98-107) mmol/L Carbon Dioxide 25 (22-30) mmol/L Anion Gap 16.4 H (5-15) MEQ/L BUN 27 H (9-20) mg/dL Creatinine 0.95 (0.66-1.25) mg/dL Estimated GFR > 60.0 ML/MIN Glucose 102 (74-106) mg/dL Lactic Acid (0.4-2.0) Calcium 9.7 (8.4-10.2) mg/dL Total Bilirubin 0.90 (0.2-1.3) mg/dL AST 19 (17-59) U/L ALT 9 (0-50) U/L Alkaline Phosphatase 62 (38-126) U/L Troponin I < 0.012 (0.000-0.034) ng/mL Serum Total Protein 8.0 (6.3-8.2) g/dL Albumin 4.0 (3.5-5.0) g/dL Urine Color (YELLOW) Urine Appearance (CLEAR) Urine pH (5-6) Ur Specific [place] (1.005-1.025) Urine Protein (Negative) Urine Ketones (NEGATIVE) Urine Blood (0-5) Marcelo/ul Urine Nitrite (NEGATIVE) Urine Bilirubin (NEGATIVE) Urine Urobilinogen (0-1) mg/dL Ur Leukocyte Esterase (NEGATIVE) Urine WBC (Auto) (0-5) /HPF Urine RBC (Auto) (0-2) /HPF U Epithel Cells (Auto) (FEW) /HPF Urine Bacteria (Auto) (NEGATIVE) /HPF Urine Mucus (Auto) (NEGATIVE) /HPF Urine Culture Reflexed (NO) Urine Glucose (NEGATIVE) mg/dL 09/05/19 09/05/19 09/05/19 Range/Units 08:13 11:00 11:18 WBC (4.0-10.5) K/mm3 RBC (4.1-5.6) M/mm3 Hgb (12.5-18.0) gm/dl Hct (42-50) % MCV (78-100) fl MCH (26-32) pg MCHC (32-36) g/dl RDW (11.5-14.0) % Plt Count (150-450) K/mm3 MPV (7.5-11.0) fl Segmented Neutrophils (36.-66.) % Band Neutrophils (0.0-2.0) % Lymphocytes (Manual) (24-44) % Monocytes (Manual) (0.0-12.0) % Eosinophils (Manual) (0.00-3.0) % Platelet Estimate (NORMAL) RBC Morphology Sodium (137-145) mmol/L Potassium (3.5-5.1) mmol/L Chloride (98-107) mmol/L Carbon Dioxide (22-30) mmol/L Anion Gap (5-15) MEQ/L BUN (9-20) mg/dL Creatinine (0.66-1.25) mg/dL Estimated GFR ML/MIN Glucose (74-106) mg/dL Lactic Acid 1.4 (0.4-2.0) Calcium (8.4-10.2) mg/dL Total Bilirubin (0.2-1.3) mg/dL AST (17-59) U/L ALT (0-50) U/L Alkaline Phosphatase (38-126) U/L Troponin I < 0.012 (0.000-0.034) ng/mL Serum Total Protein (6.3-8.2) g/dL Albumin (3.5-5.0) g/dL Urine Color YELLOW (YELLOW) Urine Appearance SLIGHTLY CLOUDY (CLEAR) Urine pH 5.0 (5-6) Ur Specific [place] 1.025 (1.005-1.025) Urine Protein NEGATIVE (Negative) Urine Ketones TRACE (NEGATIVE) Urine Blood MODERATE (0-5) Marcelo/ul Urine Nitrite NEGATIVE (NEGATIVE) Urine Bilirubin NEGATIVE (NEGATIVE) Urine Urobilinogen NEGATIVE (0-1) mg/dL Ur Leukocyte Esterase NEGATIVE (NEGATIVE) Urine WBC (Auto) 0-2 (0-5) /HPF Urine RBC (Auto) 6-10 (0-2) /HPF U Epithel Cells (Auto) NONE (FEW) /HPF Urine Bacteria (Auto) NONE (NEGATIVE) /HPF Urine Mucus (Auto) SLIGHT (NEGATIVE) /HPF Urine Culture Reflexed NO (NO) Urine Glucose NEGATIVE (NEGATIVE) mg/dL 09/05/19 Range/Units 14:25 WBC (4.0-10.5) K/mm3 RBC (4.1-5.6) M/mm3 Hgb (12.5-18.0) gm/dl Hct (42-50) % MCV (78-100) fl MCH (26-32) pg MCHC (32-36) g/dl RDW (11.5-14.0) % Plt Count (150-450) K/mm3 MPV (7.5-11.0) fl Segmented Neutrophils (36.-66.) % Band Neutrophils (0.0-2.0) % Lymphocytes (Manual) (24-44) % Monocytes (Manual) (0.0-12.0) % Eosinophils (Manual) (0.00-3.0) % Platelet Estimate (NORMAL) RBC Morphology Sodium (137-145) mmol/L Potassium (3.5-5.1) mmol/L Chloride (98-107) mmol/L Carbon Dioxide (22-30) mmol/L Anion Gap (5-15) MEQ/L BUN (9-20) mg/dL Creatinine (0.66-1.25) mg/dL Estimated GFR ML/MIN Glucose (74-106) mg/dL Lactic Acid (0.4-2.0) Calcium (8.4-10.2) mg/dL Total Bilirubin (0.2-1.3) mg/dL AST (17-59) U/L ALT (0-50) U/L Alkaline Phosphatase (38-126) U/L Troponin I < 0.012 (0.000-0.034) ng/mL Serum Total Protein (6.3-8.2) g/dL Albumin (3.5-5.0) g/dL Urine Color (YELLOW) Urine Appearance (CLEAR) Urine pH (5-6) Ur Specific [place] (1.005-1.025) Urine Protein (Negative) Urine Ketones (NEGATIVE) Urine Blood (0-5) Marcelo/ul Urine Nitrite (NEGATIVE) Urine Bilirubin (NEGATIVE) Urine Urobilinogen (0-1) mg/dL Ur Leukocyte Esterase (NEGATIVE) Urine WBC (Auto) (0-5) /HPF Urine RBC (Auto) (0-2) /HPF U Epithel Cells (Auto) (FEW) /HPF Urine Bacteria (Auto) (NEGATIVE) /HPF Urine Mucus (Auto) (NEGATIVE) /HPF Urine Culture Reflexed (NO) Urine Glucose (NEGATIVE) mg/dL - Radiology Impressions Radiology Exams & Impressions: Radiology Procedures Category Date Time Status CHEST 1 VIEW (PORTABLE) Stat Exams 09/05/19 08:07 Completed CHEST WITHOUT CONTRAST [CT] Stat Exams 09/05/19 13:07 Completed HEAD WITHOUT CONTRAST [CT] Stat Exams 09/05/19 08:03 Completed MRI BRAIN WITH CONTRAST [MRI] Stat Exams 09/05/19 09:36 Completed Assessment/Plan (1) Pneumonia Current Visit: Yes Status: Acute Qualifiers: Assessment & Plan: on rocephin and zithromax, IV fluids Code(s): J18.9 - PNEUMONIA, UNSPECIFIED ORGANISM (2) Lung cancer Current Visit: Yes Status: Chronic Qualifiers: Code(s): C34.90 - MALIGNANT NEOPLASM OF UNSP PART OF UNSP BRONCHUS OR LUNG (3) Weakness Current Visit: No Status: Chronic Assessment & Plan: will consult PT, patient and are interested in home health consult upon discharge. Code(s): R53.1 - WEAKNESS
[2019-09-05] MEDS ORDERED: Zofran 4 MG/2 ML VIAL IV PRN (15:58)
[2019-09-05] MEDS ORDERED: TYLENOL 325 MG PO PRN (15:58)
[2019-09-05] MEDS ORDERED: DUONEB 0.5-3 MG/3 ml Neb IH PRN (15:59)
[2019-09-05] MEDS: MAG-OX 400 PO SCH (16:44)
[2019-09-05] MEDS: ZYLOPRIM 100 MG PO SCH (16:44)
[2019-09-05] MEDS: Klor Con 10 MEQ PO SCH (16:45)
[2019-09-05] MEDS: Zestril 5 MG PO SCH (17:00)
[2019-09-05] MEDS ORDERED: ZOLOFT 50 MG TABLET PO SCH (17:00)
[2019-09-05] MEDS: HYDROCORTISONE PO SCH (17:06)
[2019-09-05] MEDS: Sodium Chloride 0.9% 1000 ML 1,000 ML IV SCH (17:12)
[2019-09-05] MEDS: Zithromax 500 MG/ 250 ML NaCl Premix 500 MG/250 ML IVPB IV SCH (17:18)
[2019-09-05] MEDS: Coreg 3.125 MG PO SCH (21:09)
[2019-09-05] MEDS: ZOLOFT 50 MG TABLET PO SCH (21:09)
[2019-09-05] MEDS ORDERED: Nitro-Dur 0.4 MG/HR TOP SCH (22:00)
[2019-09-06 05:29] LABS: Absolute Neutrophil Ct (ANC) 10.72 (1.4-6.9); Basophil (Absolute #) 0 (0-0.4); Eosinophil (Absolute #) 0 (0-0.5); Hematocrit 30.7 % (42-50); Hemoglobin 10.2 gm/dl (12.5-18.0); Lymphocyte (Absolute #) 0.62 (1.0-4.6); Lymphocytes % 5.2 % (24.0-44.0); Mean Cell Volume 87.2 fl (78-100); Mean Corpuscular Hgb Concent. 33.2 g/dl (32-36); Mean Platelet Volume 8.3 fl (7.5-11.0); Monocyte (Absolute #) 0.52 (0.0-1.3); Monocytes % 4.4 % (0.0-12.0); Neutrophil % 90.4 % (36.0-66.0); Platelet Count 145 K/mm3 (150-450); Red Blood Count 3.52 M/mm3 (4.1-5.6); Red Cell Distribution Width 13.8 % (11.5-14.0); White Blood Count 11.9 K/mm3 (4.0-10.5)
[2019-09-06 05:56] LABS: ALBUMIN 3.3 g/dL (3.5-5.0); ALKALINE PHOSPHATASE 51 U/L (38-126); ANION GAP 17.2 MEQ/L (5-15); BLOOD UREA NITROGEN 19 mg/dL (9-20); CHLORIDE 102 mmol/L (98-107); Calcium 8.5 mg/dL (8.4-10.2); Carbon Dioxide 20 mmol/L (22-30); Creatinine 1 0.59 mg/dL (0.66-1.25); Glucose 133 mg/dL (74-106); Potassium 4.3 mmol/L (3.5-5.1); SGOT/AST 18 U/L (17-59); SGPT/ALT 7 U/L (0-50); SODIUM 136 mmol/L (137-145)
[2019-09-06] MEDS ORDERED: Nitro-Dur 0.4 MG/HR TOP SCH (08:00)
[2019-09-06] MEDS: Klor Con 10 MEQ PO SCH (09:31)
[2019-09-06] MEDS: Coreg 3.125 MG PO SCH ×2 (09:31→21:54)
[2019-09-06] MEDS: ROCEPHIN 1 Gm-D5w 50 ml Bag** 1 G/50 ML IVPB IV SCH (09:31)
[2019-09-06] MEDS: MAG-OX 400 PO SCH (09:31)
[2019-09-06] MEDS: Zithromax 500 MG/ 250 ML NaCl Premix 500 MG/250 ML IVPB IV SCH (09:31)
[2019-09-06] MEDS: Zestril 5 MG PO SCH (09:32)
[2019-09-06] MEDS: ZYLOPRIM 100 MG PO SCH (09:33)
[2019-09-06] MEDS: HYDROCORTISONE PO SCH (09:33)
[2019-09-06] MEDS: ENOXAPARIN SODIUM SQ SCH (09:34)
[2019-09-06] MEDS ORDERED: Zithromax 500 MG/ 250 ML NaCl Premix 500 MG/250 ML IVPB IV SCH (10:00)
[2019-09-06] MEDS ORDERED: ROCEPHIN 1 Gm-D5w 50 ml Bag** 1 G/50 ML IVPB IV SCH (10:00)
[2019-09-06] MEDS ORDERED: NON-FORMULARY ITEM (Lisinopril [Zestril] 2.5 MG) PO SCH (10:00)
--- NOTE | 2019-09-06 11:46 | PCM.NOTE ---
Date and Time: 09/06/19 1144 Subjective Assessment: patient reports he is feeling much better today, he is clear and answering questions well. he is very weak and reports he has not been able to ambulate well for quite some time Objective Exam General Appearance: no apparent distress, thin Neurologic Exam: alert, oriented x 3, cooperative Respiratory Exam: rhonchi Cardiovascular Exam: regular rate/rhythm, normal heart sounds Gastrointestinal/Abdomen Exam: soft, No tenderness, No mass Extremity Exam: normal inspection, normal range of motion OBJECTIVE DATA Vital Signs: Vital Signs - 24 hr Temp Pulse Resp BP Pulse Ox 09/06/19 06:59 98.5 F 69 12 91/55 98 09/06/19 04:00 97.8 F 72 24 111/58 95 09/06/19 00:00 97.8 F 75 20 109/53 97 09/05/19 19:58 76 20 94 L 09/05/19 19:50 98.5 F 88 20 96/59 92 L 09/05/19 16:22 94 L 09/05/19 16:00 97.8 F 83 24 95/58 97 09/05/19 15:33 97.8 F 83 24 95/58 97 09/05/19 15:06 97 09/05/19 15:06 76 16 98/62 95 09/05/19 12:46 80 16 98/60 94 L Pain Assessment - Last Documented Pain Intensity 0 Pain Scale Used 0-10 Pain Scale Intake and Output: Intake & Output 09/03/19 09/04/19 09/05/19 09/06/19 11:59 11:59 11:59 11:59 Intake Total 1496 Output Total 100 1300 Balance -100 196 Weight 81.647 kg 73.9 kg Lab Results: Lab Results-Last 24 Hours 09/05/19 09/05/19 09/05/19 Range/Units 14:25 14:27 17:32 WBC (4.0-10.5) K/mm3 RBC (4.1-5.6) M/mm3 Hgb (12.5-18.0) gm/dl Hct (42-50) % MCV (78-100) fl MCH (26-32) pg MCHC (32-36) g/dl RDW (11.5-14.0) % Plt Count (150-450) K/mm3 MPV (7.5-11.0) fl Gran % (36.0-66.0) % Eos # (Auto) (0-0.5) Absolute Lymphs (auto) (1.0-4.6) Absolute Monos (auto) (0.0-1.3) Lymphocytes % (24.0-44.0) % Monocytes % (0.0-12.0) % Eosinophils % (0.00-5.0) % Basophils % (0.0-0.4) % Absolute Granulocytes (1.4-6.9) Basophils # (0-0.4) Sodium (137-145) mmol/L Potassium (3.5-5.1) mmol/L Chloride (98-107) mmol/L Carbon Dioxide (22-30) mmol/L Anion Gap (5-15) MEQ/L BUN (9-20) mg/dL Creatinine (0.66-1.25) mg/dL Estimated GFR ML/MIN Glucose (74-106) mg/dL Lactic Acid (0.4-2.0) Calcium (8.4-10.2) mg/dL Total Bilirubin (0.2-1.3) mg/dL AST (17-59) U/L ALT (0-50) U/L Alkaline Phosphatase (38-126) U/L Troponin I < 0.012 < 0.012 (0.000-0.034) ng/mL Serum Total Protein (6.3-8.2) g/dL Albumin (3.5-5.0) g/dL Prealbumin 6.50 L (17.6-36.0) mg/dL 09/05/19 09/06/19 09/06/19 Range/Units 20:20 04:40 04:40 WBC 11.9 H (4.0-10.5) K/mm3 RBC 3.52 L (4.1-5.6) M/mm3 Hgb 10.2 L D (12.5-18.0) gm/dl Hct 30.7 L (42-50) % MCV 87.2 (78-100) fl MCH 29.0 (26-32) pg MCHC 33.2 (32-36) g/dl RDW 13.8 (11.5-14.0) % Plt Count 145 L (150-450) K/mm3 MPV 8.3 (7.5-11.0) fl Gran % 90.4 H (36.0-66.0) % Eos # (Auto) 0 (0-0.5) Absolute Lymphs (auto) 0.62 L (1.0-4.6) Absolute Monos (auto) 0.52 (0.0-1.3) Lymphocytes % 5.2 L (24.0-44.0) % Monocytes % 4.4 (0.0-12.0) % Eosinophils % 0.0 (0.00-5.0) % Basophils % 0.0 (0.0-0.4) % Absolute Granulocytes 10.72 H (1.4-6.9) Basophils # 0 (0-0.4) Sodium 136 L (137-145) mmol/L Potassium 4.3 (3.5-5.1) mmol/L Chloride 102 (98-107) mmol/L Carbon Dioxide 20 L (22-30) mmol/L Anion Gap 17.2 H (5-15) MEQ/L BUN 19 (9-20) mg/dL Creatinine 0.59 L (0.66-1.25) mg/dL Estimated GFR > 60.0 ML/MIN Glucose 133 H (74-106) mg/dL Lactic Acid (0.4-2.0) Calcium 8.5 (8.4-10.2) mg/dL Total Bilirubin 0.40 (0.2-1.3) mg/dL AST 18 (17-59) U/L ALT 7 (0-50) U/L Alkaline Phosphatase 51 (38-126) U/L Troponin I < 0.012 (0.000-0.034) ng/mL Serum Total Protein 7.0 (6.3-8.2) g/dL Albumin 3.3 L (3.5-5.0) g/dL Prealbumin (17.6-36.0) mg/dL 09/06/19 Range/Units 05:26 WBC (4.0-10.5) K/mm3 RBC (4.1-5.6) M/mm3 Hgb (12.5-18.0) gm/dl Hct (42-50) % MCV (78-100) fl MCH (26-32) pg MCHC (32-36) g/dl RDW (11.5-14.0) % Plt Count (150-450) K/mm3 MPV (7.5-11.0) fl Gran % (36.0-66.0) % Eos # (Auto) (0-0.5) Absolute Lymphs (auto) (1.0-4.6) Absolute Monos (auto) (0.0-1.3) Lymphocytes % (24.0-44.0) % Monocytes % (0.0-12.0) % Eosinophils % (0.00-5.0) % Basophils % (0.0-0.4) % Absolute Granulocytes (1.4-6.9) Basophils # (0-0.4) Sodium (137-145) mmol/L Potassium (3.5-5.1) mmol/L Chloride (98-107) mmol/L Carbon Dioxide (22-30) mmol/L Anion Gap (5-15) MEQ/L BUN (9-20) mg/dL Creatinine (0.66-1.25) mg/dL Estimated GFR ML/MIN Glucose (74-106) mg/dL Lactic Acid 1.1 (0.4-2.0) Calcium (8.4-10.2) mg/dL Total Bilirubin (0.2-1.3) mg/dL AST (17-59) U/L ALT (0-50) U/L Alkaline Phosphatase (38-126) U/L Troponin I (0.000-0.034) ng/mL Serum Total Protein (6.3-8.2) g/dL Albumin (3.5-5.0) g/dL Prealbumin (17.6-36.0) mg/dL Radiology Exams: Radiology Procedures Category Date Time Status CHEST 1 VIEW (PORTABLE) Stat Exams 09/05/19 08:07 Completed CHEST WITHOUT CONTRAST [CT] Stat Exams 09/05/19 13:07 Completed HEAD WITHOUT CONTRAST [CT] Stat Exams 09/05/19 08:03 Completed MRI BRAIN WITH CONTRAST [MRI] Stat Exams 09/05/19 09:36 Completed Multi-Disciplinary Progress Notes: Multi-Disciplinary Progress Notes 09/06/19 10:43 Case Management Note by Dominga Harrell [facility] NOTIFIED PATIENT IN HOUSE AND WILL BE INPATIENT. THEY VERIFIED UNDERSTANDING. THEY WILL NEED TO BE NOTIFIED AT TIME OF DC. THEIR PHONE NUMBER IS [phone]. IF PATIENT DISCHARGE TO HOME, THEY WILL NEED FAXED THE DC INSTRUCTIONS, MED LIST, AND DC SUMMARY(IF AVAILABLE) FAXED TO THEM AT [phone] Initialized on 09/06/19 10:43 - END OF NOTE Assessment/Plan (1) Pneumonia Current Visit: Yes Status: Acute Qualifiers: Assessment & Plan: continue rocephin/zithromax Code(s): J18.9 - PNEUMONIA, UNSPECIFIED ORGANISM (2) Lung cancer Current Visit: Yes Status: Chronic Qualifiers: Code(s): C34.90 - MALIGNANT NEOPLASM OF UNSP PART OF UNSP BRONCHUS OR LUNG (3) Weakness Current Visit: No Status: Chronic Assessment & Plan: plan to pursue placement at [facility] for rehab following discharge Code(s): R53.1 - WEAKNESS
[2019-09-06] MEDS: Sodium Chloride 0.9% 1000 ML 1,000 ML IV SCH (16:06)
[2019-09-06] MEDS: ZOLOFT 50 MG TABLET PO SCH (21:54)
[2019-09-06] MEDS: Nitro-Dur 0.4 MG/HR TOP SCH (21:54)
[2019-09-07 05:10] LABS: ANION GAP 10.7 MEQ/L (5-15); BLOOD UREA NITROGEN 17 mg/dL (9-20); CHLORIDE 104 mmol/L (98-107); Calcium 8.4 mg/dL (8.4-10.2); Carbon Dioxide 25 mmol/L (22-30); Glucose 108 mg/dL (74-106); SODIUM 135 mmol/L (137-145)
[2019-09-07 05:13] LABS: Absolute Neutrophil Ct (ANC) 8.66 (1.4-6.9); BASOPHIL % 0.1 % (0.0-0.4); Basophil (Absolute #) 0.01 (0-0.4); Eosinophil % 0.2 % (0.00-5.0); Eosinophil (Absolute #) 0.02 (0-0.5); Hemoglobin 8.6 gm/dl (12.5-18.0); Lymphocyte (Absolute #) 0.71 (1.0-4.6); Lymphocytes % 7.1 % (24.0-44.0); Mean Cell Volume 88.7 fl (78-100); Mean Corpuscular Hemoglobin 29.4 pg (26-32); Mean Corpuscular Hgb Concent. 33.1 g/dl (32-36); Mean Platelet Volume 8.1 fl (7.5-11.0); Monocyte (Absolute #) 0.59 (0.0-1.3); Monocytes % 5.9 % (0.0-12.0); Neutrophil % 86.7 % (36.0-66.0); Platelet Count 142 K/mm3 (150-450); Red Blood Count 2.93 M/mm3 (4.1-5.6); Red Cell Distribution Width 13.9 % (11.5-14.0)
--- NOTE | 2019-09-07 08:57 | PCM.NOTE ---
Date and Time: 09/07/19 0856 Subjective Assessment: patient believes he is feeling better, tolerating po and he has more energy. still weak Objective Exam General Appearance: no apparent distress, alert Respiratory Exam: rhonchi Cardiovascular Exam: regular rate/rhythm, normal heart sounds Gastrointestinal/Abdomen Exam: soft, No tenderness, No mass Extremity Exam: normal inspection, normal range of motion OBJECTIVE DATA Vital Signs: Vital Signs - 24 hr Temp Pulse Resp BP Pulse Ox 09/07/19 08:00 98.2 F 62 22 100/58 97 09/07/19 07:10 62 22 97 09/07/19 04:15 98.1 F 61 18 107/60 99 09/06/19 23:57 98.5 F 63 22 101/53 98 09/06/19 20:15 67 18 96 09/06/19 19:51 98.5 F 70 18 110/54 96 09/06/19 16:00 98.8 F 65 16 108/56 95 09/06/19 12:00 98.7 F 69 15 97/53 93 L Pain Assessment - Last Documented Pain Intensity 0 Pain Scale Used 0-10 Pain Scale Intake and Output: Intake & Output 09/04/19 09/05/19 09/06/19 09/07/19 11:59 11:59 11:59 11:59 Intake Total 1496 2121 Output Total 100 1300 1000 Balance -077 796 1850 Weight 81.647 kg 73.9 kg Lab Results: Lab Results-Last 24 Hours 09/07/19 09/07/19 Range/Units 04:38 04:38 WBC 10.0 (4.0-10.5) K/mm3 RBC 2.93 L (4.1-5.6) M/mm3 Hgb 8.6 L (12.5-18.0) gm/dl Hct 26.0 L (42-50) % MCV 88.7 (78-100) fl MCH 29.4 (26-32) pg MCHC 33.1 (32-36) g/dl RDW 13.9 (11.5-14.0) % Plt Count 142 L (150-450) K/mm3 MPV 8.1 (7.5-11.0) fl Gran % 86.7 H (36.0-66.0) % Eos # (Auto) 0.02 (0-0.5) Absolute Lymphs (auto) 0.71 L (1.0-4.6) Absolute Monos (auto) 0.59 (0.0-1.3) Lymphocytes % 7.1 L (24.0-44.0) % Monocytes % 5.9 (0.0-12.0) % Eosinophils % 0.2 (0.00-5.0) % Basophils % 0.1 (0.0-0.4) % Absolute Granulocytes 8.66 H (1.4-6.9) Basophils # 0.01 (0-0.4) Sodium 135 L (137-145) mmol/L Potassium 4.0 (3.5-5.1) mmol/L Chloride 104 (98-107) mmol/L Carbon Dioxide 25 (22-30) mmol/L Anion Gap 10.7 (5-15) MEQ/L BUN 17 (9-20) mg/dL Creatinine 0.50 L (0.66-1.25) mg/dL Estimated GFR > 60.0 ML/MIN Glucose 108 H (74-106) mg/dL Calcium 8.4 (8.4-10.2) mg/dL Radiology Exams: Radiology Procedures Category Date Time Status CHEST 1 VIEW (PORTABLE) Stat Exams 09/05/19 08:07 Completed CHEST WITHOUT CONTRAST [CT] Stat Exams 09/05/19 13:07 Completed HEAD WITHOUT CONTRAST [CT] Stat Exams 09/05/19 08:03 Completed MRI BRAIN WITH CONTRAST [MRI] Stat Exams 09/05/19 09:36 Completed Multi-Disciplinary Progress Notes: Multi-Disciplinary Progress Notes 09/06/19 15:34 Case Management Note by Michelle Self PAPERWORK COMPLETE, NO LEVEL II REQUIRED. Initialized on 09/06/19 15:34 - END OF NOTE 09/06/19 15:22 Case Management Note by Michelle Self PT'S IS NOW QUESTIONING [facility] AN OPTION FOR REHAB. DISCUSSED THAT CASE MANAGEMENT WOULD HAVE THEM CALL HER TO ANSWER ALL OF THEIR QUESTIONS. SPOKE WITH SCOTT AT [facility], SHE REPORTS THAT SHE WILL CALL AND TALK WITH JULIANA, PT'S . Initialized on 09/06/19 15:22 - END OF NOTE 09/06/19 11:56 Case Management Note by Dominga Harrell [facility] REPORTS THEY WERE NOT CURRENTLY SEEING PATIENT Initialized on 09/06/19 11:56 - END OF NOTE 09/06/19 10:43 Case Management Note by Dominga Harrell [facility] NOTIFIED PATIENT IN HOUSE AND WILL BE INPATIENT. THEY VERIFIED UNDERSTANDING. THEY WILL NEED TO BE NOTIFIED AT TIME OF DC. THEIR PHONE NUMBER IS [phone]. IF PATIENT DISCHARGE TO HOME, THEY WILL NEED FAXED THE DC INSTRUCTIONS, MED LIST, AND DC SUMMARY(IF AVAILABLE) FAXED TO THEM AT [phone] Initialized on 09/06/19 10:43 - END OF NOTE Assessment/Plan (1) Pneumonia Current Visit: Yes Status: Acute Qualifiers: Assessment & Plan: on rocephin/zithromax, wbc normal, no fever and sats are stable on room air. will plan to discharge to [facility] for rehab stay after discussion with patient Code(s): J18.9 - PNEUMONIA, UNSPECIFIED ORGANISM (2) Lung cancer Current Visit: Yes Status: Chronic Qualifiers: Code(s): C34.90 - MALIGNANT NEOPLASM OF UNSP PART OF UNSP BRONCHUS OR LUNG (3) Weakness Current Visit: No Status: Chronic Code(s): R53.1 - WEAKNESS
[2019-09-07] MEDS: Zithromax 500 MG/ 250 ML NaCl Premix 500 MG/250 ML IVPB IV SCH (09:22)
[2019-09-07] MEDS: HYDROCORTISONE PO SCH (09:23)
[2019-09-07] MEDS: ENOXAPARIN SODIUM SQ SCH (09:23)
[2019-09-07] MEDS: Coreg 3.125 MG PO SCH ×2 (09:24→21:15)
[2019-09-07] MEDS: Zestril 5 MG PO SCH ×2 (09:24→11:47)
[2019-09-07] MEDS: Klor Con 10 MEQ PO SCH (09:24)
[2019-09-07] MEDS: MAG-OX 400 PO SCH (09:24)
[2019-09-07] MEDS: ZYLOPRIM 100 MG PO SCH (09:25)
[2019-09-07] MEDS: ROCEPHIN 1 Gm-D5w 50 ml Bag** 1 G/50 ML IVPB IV SCH (09:33)
[2019-09-07] MEDS: ZOLOFT 50 MG TABLET PO SCH (21:16)
[2019-09-07] MEDS: Nitro-Dur 0.4 MG/HR TOP SCH (21:16)
--- NOTE | 2019-09-08 07:23 | PCM.NOTE ---
Date and Time: 09/08/19721 patient reports he is doing well, still has some cough. was evaluated by ST due to some choking during eating, MBS scheduled for this am Objective Exam General Appearance: no apparent distress, alert Skin Exam: normal color, warm, dry Respiratory Exam: rhonchi Cardiovascular Exam: regular rate/rhythm, normal heart sounds Gastrointestinal/Abdomen Exam: soft, No tenderness, No mass Extremity Exam: normal inspection, normal range of motion OBJECTIVE DATA Vital Signs: Vital Signs - 24 hr Temp Pulse Resp BP Pulse Ox 09/08/19 07:12 97.6 F 63 20 123/67 96 09/08/19 04:00 98.3 F 64 20 129/69 96 09/08/19 00:00 98.5 F 64 20 131/67 100 09/07/19 20:19 66 20 98 09/07/19 20:00 98.5 F 67 24 130/65 95 09/07/19 16:00 97.7 F 71 16 118/60 97 09/07/19 12:00 98.5 F 69 18 92/52 94 L 09/07/19 08:00 98.2 F 62 22 100/58 97 Oxygen-Last 24 hours Oxygen Flowrate (L/min)-RT 2 Pain Assessment - Last Documented Pain Intensity 0 Pain Scale Used FLACC Intake and Output: Intake & Output 09/05/19 09/06/19 09/07/19 09/08/19 11:59 11:59 11:59 11:59 Intake Total 1496 2361 360 Output Total 100 1300 1000 1150 Balance -668 112 5048 -790 Weight 81.647 kg 73.9 kg Radiology Exams: Radiology Procedures Category Date Time Status MODIFIED BARIUM SWALLOW (RAD) [MODIFIED BARIUM SWALLOW Exams 09/08/19 09:00 Ordered EXAM] Routine Multi-Disciplinary Progress Notes: Multi-Disciplinary Progress Notes 09/07/19 16:27 Physical Therapy Note by Lily Alvarado PT. IS ALERT AND ORIENTED. THIS AM ASSISTED W/ TRANSFER BED TO [facility]. SUPIEN TO SIT PERFORMED / MOD/MAX ASSIST X 1. NOTED TENDENCY TO LIST W/ TRUNK TO L AND POSTERIORLY DO NEEDED MOD ASSIST TO MAINTAIN SITTING BALANCE ON SIDE OF BED. PERFORMED BED TO CHAIR TRANSFER W/ MAX ASSIST X 2. PT. 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 PM - PERFORMED LE ROM AND GENTLE STRENGTHENING IN BED X 5-10 REPS. L LE WEAKNESS > R. NOTE S SOME TONE AND TIGHTNESS IN L LE W/ ROM. PT. DID CHOKE ON A LEMON CUPCAKE AND HAS HAD SOME ISSUES W/ WATER PER NSG. ST TO EVAL TOMORROW. WILL CONT. PT 5X/WK TOLERATED UNTIL D/C. PLAN IS TO D/C TO [facility] FOR REHAB. LILY ALVARADO, PT Initialized on 09/07/19 16:27 - END OF NOTE 09/07/19 10:01 Case Management Note by Dominga Harrell AND PATIENT WOULD LIKE FOR PATIENT TO GO TO [facility] AT [place], SENDING REFERRAL AT THIS TIME Initialized on 09/07/19 10:01 - END OF NOTE Assessment/Plan (1) Pneumonia Current Visit: Yes Status: Acute Qualifiers: Assessment & Plan: on rocephin/zithromax. clinically improved, await MBS results and plan to discharge to [facility] soon Code(s): J18.9 - PNEUMONIA, UNSPECIFIED ORGANISM (2) Lung cancer Current Visit: Yes Status: Chronic Qualifiers: Code(s): C34.90 - MALIGNANT NEOPLASM OF UNSP PART OF UNSP BRONCHUS OR LUNG (3) Weakness Current Visit: No Status: Chronic Code(s): R53.1 - WEAKNESS
[2019-09-08] MEDS: ROCEPHIN 1 Gm-D5w 50 ml Bag** 1 G/50 ML IVPB IV SCH ×2 (08:43→10:08)
[2019-09-08] MEDS: Zithromax 500 MG/ 250 ML NaCl Premix 500 MG/250 ML IVPB IV SCH ×2 (08:43→10:54)
[2019-09-08] MEDS: ENOXAPARIN SODIUM SQ SCH (08:44)
[2019-09-08] MEDS: HYDROCORTISONE PO SCH (10:07)
[2019-09-08] MEDS: Coreg 3.125 MG PO SCH ×2 (10:07→22:06)
[2019-09-08] MEDS: Klor Con 10 MEQ PO SCH (10:07)
[2019-09-08] MEDS: MAG-OX 400 PO SCH (10:07)
[2019-09-08] MEDS: Zestril 5 MG PO SCH (10:08)
[2019-09-08] MEDS: ZYLOPRIM 100 MG PO SCH (10:08)
[2019-09-08] MEDS: ZOLOFT 50 MG TABLET PO SCH (22:06)
[2019-09-08] MEDS: Nitro-Dur 0.4 MG/HR TOP SCH (22:06)
[2019-09-09 05:21] LABS: Absolute Neutrophil Ct (ANC) 5.47 (1.4-6.9); BASOPHIL % 0.3 % (0.0-0.4); Basophil (Absolute #) 0.02 (0-0.4); Eosinophil % 2.5 % (0.00-5.0); Eosinophil (Absolute #) 0.18 (0-0.5); Hematocrit 30.9 % (42-50); Hemoglobin 10.1 gm/dl (12.5-18.0); Lymphocyte (Absolute #) 1.08 (1.0-4.6); Lymphocytes % 14.8 % (24.0-44.0); Mean Cell Volume 88.3 fl (78-100); Mean Corpuscular Hemoglobin 28.9 pg (26-32); Mean Corpuscular Hgb Concent. 32.7 g/dl (32-36); Mean Platelet Volume 8.1 fl (7.5-11.0); Monocyte (Absolute #) 0.54 (0.0-1.3); Monocytes % 7.4 % (0.0-12.0); Platelet Count 181 K/mm3 (150-450); Red Cell Distribution Width 14.1 % (11.5-14.0); White Blood Count 7.3 K/mm3 (4.0-10.5)
[2019-09-09 05:43] LABS: ANION GAP 10.7 MEQ/L (5-15); BLOOD UREA NITROGEN 13 mg/dL (9-20); CHLORIDE 102 mmol/L (98-107); Calcium 8.4 mg/dL (8.4-10.2); Carbon Dioxide 26 mmol/L (22-30); Creatinine 1 0.47 mg/dL (0.66-1.25); Glucose 86 mg/dL (74-106); Potassium 3.8 mmol/L (3.5-5.1); SODIUM 135 mmol/L (137-145)
--- NOTE | 2019-09-09 08:36 | PCM.DS ---
Discharge Summary Date of Admission: 09/06/19 11:44 Admitting Physician: MONTSERRAT RICHARDS Primary Care Provider: GYPSY MANSFIELD Allergies Allergies No Known Drug Allergies Allergy (Verified 09/05/19 09:35) Hospital Summary - Hospital Course Hospital Course: patient was admitted with cough and weakness, found to have pneumonia. has known lung cancer. - Vitals & Intake/Output Vital Signs: Vital Signs Temperature 97.6 F 09/09/19 07:26 Pulse Rate 62 09/09/19 07:26 Respiratory Rate 18 09/09/19 07:26 Blood Pressure 134/79 09/09/19 07:26 O2 Sat by Pulse Oximetry 97 09/09/19 07:26 Intake & Output: Intake & Output 09/06/19 09/07/19 09/08/19 09/09/19 11:59 11:59 11:59 11:59 Intake Total 1496 2361 360 390 Output Total 1300 1000 1150 1000 Balance 196 1361 -790 -610 Weight 73.9 kg 73.9 kg - Lab Result Diagrams: 09/09/19 04:15 09/09/19 04:15 Lab Results-Last 24 Hrs: Lab Results-Last 24 Hours 09/09/19 09/09/19 Range/Units 04:15 04:15 WBC 7.3 (4.0-10.5) K/mm3 RBC 3.50 L (4.1-5.6) M/mm3 Hgb 10.1 L (12.5-18.0) gm/dl Hct 30.9 L (42-50) % MCV 88.3 (78-100) fl MCH 28.9 (26-32) pg MCHC 32.7 (32-36) g/dl RDW 14.1 H (11.5-14.0) % Plt Count 181 (150-450) K/mm3 MPV 8.1 (7.5-11.0) fl Gran % 75.0 H (36.0-66.0) % Eos # (Auto) 0.18 (0-0.5) Absolute Lymphs (auto) 1.08 (1.0-4.6) Absolute Monos (auto) 0.54 (0.0-1.3) Lymphocytes % 14.8 L (24.0-44.0) % Monocytes % 7.4 (0.0-12.0) % Eosinophils % 2.5 (0.00-5.0) % Basophils % 0.3 (0.0-0.4) % Absolute Granulocytes 5.47 (1.4-6.9) Basophils # 0.02 (0-0.4) Sodium 135 L (137-145) mmol/L Potassium 3.8 (3.5-5.1) mmol/L Chloride 102 (98-107) mmol/L Carbon Dioxide 26 (22-30) mmol/L Anion Gap 10.7 (5-15) MEQ/L BUN 13 (9-20) mg/dL Creatinine 0.47 L (0.66-1.25) mg/dL Estimated GFR > 60.0 ML/MIN Glucose 86 (74-106) mg/dL Calcium 8.4 (8.4-10.2) mg/dL Micro Results-Entire Visit: Microbiology 09/05/19 10:57 Blood Culture - Preliminary Blood NO GROWTH TO DATE 09/05/19 08:07 Blood Culture - Preliminary Blood NO GROWTH TO DATE - Radiology Exams Ordered Rad Exams-Entire Visit: Radiology Procedures Category Date Time Status MODIFIED BARIUM SWALLOW (RAD) [MODIFIED BARIUM SWALLOW Exams 09/08/19 09:56 Taken EXAM] Routine - Procedures and Test Procedures and Tests throughout Hospitalization: Therapy Orders & Screens 09/05/19 15:59 OT Screen per Nursing Assess Comment: Protocol Order Physician Instructions: Greater than 3 points order OT Admission Screening Reason For Exam: Triggered on Admission Diagnosis: pneumonia Open Wound/Cellutlitis/Pressure Ulcers: No Acute Fx/ORIF/Change in wt bearing status: Yes Severe MUSCULOSKELETAL pain: No ADL Dysfunction: Yes Acute CVA w/Hemiparesis/Hemiplegia: No Decreased Functional Mobility/Strength: Yes Sprain/Strain: No Acute Post-op Mobility Dysfunction: No Total Points: 9 PT Eval & Treat (MD Order) ROUTINE Reason for Eval:: weakness Diagnosis: pneumonia PT Screen per Nursing Assess Comment: Protocol Order Physician Instructions: Greater than 3 points order PT Admission Screenin Reason For Exam: Triggered on Admission Diagnosis: pneumonia Open Wound/Cellutlitis/Pressure Ulcers: No Acute Fx/ORIF/Change in wt bearing status: Yes Severe MUSCULOSKELETAL pain: No ADL Dysfunction: Yes Acute CVA w/Hemiparesis/Hemiplegia: No Decreased Functional Mobility/Strength: Yes Sprain/Strain: No Acute Post-op Mobility Dysfunction: No Total Points: 9 RT Screen per Nursing Assess ONCE Comment: Protocol Order Physician Instructions: Greater than 3 points order RT Admission Screen Reason For Exam: Triggered on Admission Diagnosis: pneumonia Diagnosis: pneumonia Pneumonia: Yes Home O2: Yes: AT HS Asthma: No CHF: Yes Home CPAP/BIPAP: No Home Nebs/MDI: No Total Points: 11 09/05/19 16:17 Oxygen NASAL CANNULA 2 lpm Comment: Diagnosis: pneumonia 09/05/19 16:24 Respiratory Therapy Assessment DAILY Comment: Diagnosis: pneumonia 09/07/19 15:59 Speech Therapy Eval & Treat [ST Eval & Treat (MD Order)] .as ordered Comment: Physician Instructions: Reason For Exam: r/o aspiration Evaluate: Yes: swallow Treat: Yes Reason for Eval: swallow eval Diagnosis: PNEUMONIA, LUNG CA Discharge Exam General Appearance: no apparent distress, alert, thin, other (weak) Neurologic Exam: alert Respiratory Exam: rhonchi, No respiratory distress Cardiovascular Exam: regular rate/rhythm, normal heart sounds Gastrointestinal/Abdomen Exam: soft, No tenderness, No mass Extremity Exam: normal inspection, normal range of motion Final Diagnosis/Problem List - Final Discharge Diagnosis/Problem (1) Pneumonia Current Visit: Yes Status: Acute Assessment & Plan: levaquin x 7 days Code(s): J18.9 - PNEUMONIA, UNSPECIFIED ORGANISM (2) Lung cancer Current Visit: Yes Status: Chronic Code(s): C34.90 - MALIGNANT NEOPLASM OF UNSP PART OF UNSP BRONCHUS OR LUNG (3) Weakness Current Visit: No Status: Chronic Code(s): R53.1 - WEAKNESS - Discharge Disposition: Skilled Care @ [facility] Condition: Fair Prescriptions: New Albuterol/Ipratropium 3ml Neb* [DUONEB 0.5-3 MG/3 ml Neb] 3 ml IH Q4HPRN PRN #100 ampul.neb PRN Reason: Shortness Of Breath/Wheezing Levofloxacin [Levaquin] 500 mg PO DAILY #7 tablet Continue Magnesium Oxide 400 mg [Mag-Ox 400] 400 mg PO DAILY allopurinoL [Allopurinol] 100 mg PO DAILY Potassium Chloride 10 Meq Tab* [Klor Con 10 MEQ] 10 meq PO DAILY Metformin HCl 500 mg PO BID Carvedilol 3.125 mg [Coreg 3.125 MG] 3.125 mg PO BID lisinopriL [Zestril] 2.5 mg PO DAILY Sertraline HCl 50 mg PO DAILY Hydrocortisone 20 mg PO DAILY Nitroglycerin 0.4 mg/Hr [Nitro-Dur 0.4 MG/HR] 1 patch TOP DAILY Additional Instructions: ST/OT evaluate and treat
[2019-09-09] MEDS: ENOXAPARIN SODIUM SQ SCH (09:19)
[2019-09-09] MEDS: Coreg 3.125 MG PO SCH (09:19)
[2019-09-09] MEDS: Klor Con 10 MEQ PO SCH (09:20)
[2019-09-09] MEDS: MAG-OX 400 PO SCH (09:20)
[2019-09-09] MEDS: HYDROCORTISONE PO SCH (09:20)
[2019-09-09] MEDS: Zithromax 500 MG/ 250 ML NaCl Premix 500 MG/250 ML IVPB IV SCH (09:22)
[2019-09-09] MEDS: Zestril 5 MG PO SCH (09:22)
[2019-09-09] MEDS: ROCEPHIN 1 Gm-D5w 50 ml Bag** 1 G/50 ML IVPB IV SCH (09:22)
[2019-09-09] MEDS: ZYLOPRIM 100 MG PO SCH (09:23)
[2019-09-09 11:39] VITALS: BP 126/74; PULSE 69; O2SAT 97
--- NOTE | 2019-09-09 17:46 | XRAY ---
Exam: Modified barium swallow from 09/08/2019. Fluoroscopy time: 3 minutes, 2 seconds. Comparison: None. Indication: 74-year-old male with difficulty swallowing, gets choked; has history of left lung cancer and prior radiation therapy. Technique: The patient was placed in the upright lateral sitting position. The study was video recorded with the C-arm. Both the speech pathologist (Sandra Gonsales) and the diagnostic radiologist (Cristino Costa M.D.) were present for the exam. Findings: The patient was first given a teaspoon of thin liquid barium. The ensuing swallow appeared remarkable only for minimal residual within the pyriform sinuses. No laryngeal penetration or tracheal aspiration was seen. The patient was then given a cup sip of thin liquid barium. There was a mild residual within the vallecula and pyriform sinuses, but the patient took a spontaneous second swallow and cleared the residual. Again, no laryngeal penetration or tracheal aspiration was seen. The patient was then given a cup of thin liquid barium using a straw. The swallow appeared unremarkable. The patient was then given a teaspoon of nectar thickened liquid. The swallow appeared unremarkable. The patient was also tested with a teaspoon of thin honey barium liquid and honey thick barium liquid. Minimal residual was seen within the pyriform sinuses with the honey thick liquid. The patient was then given a pudding consistency from a spoon. There was a delayed oral phase, but the subsequent swallow appeared unremarkable. The patient was then given an applesauce consistency with barium paste. Again, the oral phase was delayed, but the ensuing swallow appeared unremarkable. The patient was then given a cookie with some paste on it to chew and swallow. The patient had great difficulty initiating the swallow. We finally gave him a swallow of water which helped him swallow the chewed up cookie. There was no laryngeal penetration or aspiration. At the end of the exam, we note a delayed cough. However, fluoroscopy revealed no laryngeal penetration or aspiration. Impression: 1. Multiple different liquid and solid consistencies were tested. No laryngeal penetration or aspiration was seen with any of the consistencies. See speech pathologist report for further details and recommendations.
== END 2019-09-09 14:20 | DRG 194 ==
LOC: MERGE 07:58 → ED 07:58 → MED SURG 15:13 → OBSVTOIN 09-06 11:44
PROVIDERS: ADMIT Family Medicine; ATTEND Family Medicine
DX: J18.9 Pneumonia, unspecified organism (principal); C34.90 Malignant neoplasm of unspecified part of unspecified bronchus or lung; R41.0 Disorientation, unspecified; R53.1 Weakness; E11.9 Type 2 diabetes mellitus without complications; R11.2 Nausea with vomiting, unspecified; K59.00 Constipation, unspecified; R26.2 Difficulty in walking, not elsewhere classified; R07.9 Chest pain, unspecified; Z79.899 Other long term (current) drug therapy
CPT/HCPCS: 36415; 51702; 70450; 70552; 71045; 71250; 74230; 80048; 80053; 81001; 83605; 84134; 84484; 85025; 87040; 92611; 93005; 94640; 94760; 96360; 96361; 96365; 96374; 97110; 97161; 97530; 99285; G0378; J0456; J0696; J1100; J1642; J1650; A9270-GY